=== PATIENT | female | born 1950 | race Caucasian/White ===

== ENCOUNTER 2017-10-12 09:38 | Emergency (ER) | payer MEDICARE ==
[~2017-10-12] VITALS: Ht 167.6 cm; Wt 83.0 kg
--- NOTE | 2017-10-13 19:44 | EKG ---
[facility] [address] [facility] [place] [address] Signed Sinus tachycardia Moderate voltage criteria for LVH, may be normal variant Borderline ECG No previous ECGs available Confirmed by ALLISON RENDON MD ([id number]) on 10/13/2017 7:44:15 PM Electronically Signed By: ALLISON RENDON MD 10/13/17 1944 PATIENT NAME: NETTE MUSTAFAHALLIE DELACRUZ Electrocardiogram DATE OF : 48 PHYSICIAN: ALLISON RENDON MD REPORT #: [id number] REPORT IS CONFIDENTIAL AND NOT TO BE RELEASED WITHOUT AUTHORIZATION
== END 2017-10-12 11:55 | disposition home or self-care (01) ==
LOC: ED 09:38
DX: R00.1 Bradycardia, unspecified (principal); I10 Essential (primary) hypertension; F41.9 Anxiety disorder, unspecified; Z88.5 Allergy status to narcotic agent; Z88.8 Allergy status to other drugs, medicaments and biological substances
CPT/HCPCS: 71045; 80053; 84484; 85025; 85379; 93005; 93010; 99285

== ENCOUNTER 2017-10-15 21:44 | Emergency (ER) | payer OTHER ==
--- NOTE | 2017-10-16 08:09 | EKG ---
[facility] [address] [facility] [place], [place] [address] Signed Sinus tachycardia Left ventricular hypertrophy with repolarization abnormality Cannot rule out Septal infarct , age undetermined Abnormal ECG Confirmed by MOJGAN WISEMAN MD ([id number]) on 10/16/2017 8:09:00 AM Electronically Signed By: MOJGAN WISEMAN MD 10/16/17808 PATIENT NAME: MARJORIE MUSTAFA [facility] Electrocardiogram DATE OF : 48 PHYSICIAN: MOJGAN WISEMAN MD REPORT #: [id number] REPORT IS CONFIDENTIAL AND NOT TO BE RELEASED WITHOUT AUTHORIZATION
== END 2017-10-16 00:52 | disposition home or self-care (01) ==
LOC: ED
DX: R00.0 Tachycardia, unspecified (principal); F41.9 Anxiety disorder, unspecified; I10 Essential (primary) hypertension; Z88.8 Allergy status to other drugs, medicaments and biological substances; Z91.038 Other insect allergy status; Z91.030 Bee allergy status; Z88.6 Allergy status to analgesic agent
CPT/HCPCS: 96374; 99285; J2060

== ENCOUNTER 2017-10-17 23:09 | Emergency (ER) | payer MEDICARE ==
[~2017-10-17] VITALS: Ht 152.4 cm; Wt 82.0 kg
--- OUTSIDE RECORDS SUMMARY | ~2017-10-17 | XMS | Clinical Summary ---
Demographics + + + | Address | [address] | | | [place] [address] | + + + | Home Phone | | + + + | Preferred Language | Unknown | + + + | Marital Status | | + + + | Episcopalian Affiliation | 1075 | + + + | Race | Unknown | + + + | Ethnic Group | Unknown | + + + Author + + + | Author | [facility] | | | and [place] | + + + | Organization | [facility] | | | and [place] | + + + | Address | Unknown | + + + | Phone | Unavailable | + + + Support + + + + + | Name | Relationship | Address | Phone | + + + + + | None To List,Per | ECON | 10.10.13 | Unavailable | | Patient | | NA, | | + + + + + | Hugo Kessler | ECON | [address] | | | | | [place] | | | | | [address] | | + + + + + Care Team Providers + +------+ + | Care Xerox Machine Mechanic Name | Role | Phone | + +------+ + | No, Unknownpcp | PP | | + +------+ + Allergies + + + +--------+ + | Active Allergy | Reactions | Severity | Noted | Comments | | | | | Date | | + + + +--------+ + | Bee Venom | | | | | + + + +--------+ + | Codeine Sulfate | | | | | + + + +--------+ + | Darvon | | | | | + + + +--------+ + | Demerol | | | | | + + + +--------+ + | Ibuprofen | | | | | + + + +--------+ + | Latex | | | | | + + + +--------+ + | Moxifloxacin | | | | | + + + +--------+ + | Prednisone | | | | | + + + +--------+ + Current Medications + + +-------+---------+------+------+-------+ | Prescription | Sig. | Disp. | Refills | Star | End | Statu | | | | | | t | Date | s | | | | | | Date | | | + + +-------+---------+------+------+-------+ | multivitamin | 1 tablet daily | | | 11/03 | | Activ | | (THERAGRAN) per | | | | 4/20 | | e | | tablet | | | | 12 | | | + + +-------+---------+------+------+-------+ | Flaxseed, Linseed, | Take 1,000 mg by | | | 11/03 | | Activ | | (RA FLAX SEED OIL | mouth Daily. | | | 4/20 | | e | | 1000) 1000 MG CAPS | | | | 12 | | | + + +-------+---------+------+------+-------+ | albuterol 2.5 mg/3 | In nebulizer every 4 | | | 11/03 | | Activ | | mL nebulizer | hours as needed for | | | 06/22 | | e | | solution | shortness of breath | | | 12 | | | + + +-------+---------+------+------+-------+ | cholecalciferol | Take 1,000 Units by | | | | | Activ | | (VITAMIN D-3) 1,000 | mouth Daily. 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/2009 | + + + | CHRONIC RESPIRATORY FAILURE | | + + + | CT, CHEST, ABNORMAL | | + + + Family History + +------+ + + | Relation | Name | Status | Comments | + +------+ + + | Father | | | | + +------+ + + | Mother | | | | + +------+ + + Social History + +-------+ +--------+------+ | Tobacco Use | Types | Packs/Day | Years | Date | | | | | Used | | + +-------+ +--------+------+ | Never Smoker | | | | | + +-------+ +--------+------+ + + + | Sex Assigned at | Date Recorded | | | | + + + | Not on file | | + + + Last Filed Vital Signs + + + + | Vital Sign | Reading | Time Taken | + + + + | Blood Pressure | 168/100 | 12/12/20121543 PDT | + + + + | Pulse | 80 | 12/12/20121543 PDT | + + + + | Temperature | - | - | + + + + | Respiratory Rate | - | - | + + + + | Oxygen Saturation | - | - | + + + + | Inhaled Oxygen | - | - | | Concentration | | | + + + + | Weight | 81.6 kg (180 lb) | 12/12/20121543 PDT | + + + + | Height | 167.6 cm (5' 6") | 12/12/20121543 PDT | + + + + | Body Mass Index | 29.05 | 12/12/20121543 PDT | + + + + Plan of Treatment + + + + + | Health Maintenance | Due Date | Last Done | Comments | + + + + + | Vaccine: | | | | | Dtap/Tdap/Td (1 - | 9 | | | | Tdap) | | | | + + + + + | Vaccine: | | | | | Pneumococcal 65+ | 5 | | | | Low/Medium Risk (1 | | | | | of 2 - PCV13) | | | | + + + + + | Vaccine: Influenza | | | | | (#1) | 8 | | | + + + + + Results Not on filefrom Last 3 Months Insurance +---------+--------+ +--------+ +---------+ | Payer | Benefi | Subscriber | Type | Phone | Address | | | t Plan | ID | | | | | | / | | | | | | | Group | | | | | +---------+--------+ +--------+ +---------+ | QUENTIN | [place] | [id number] | Indemn | [phone] | | | E FOR | | ity | [phone] | | | | LIFE | | | | | +---------+--------+ +--------+ +---------+ + +--------+ +--------+ + + | Guarantor Name | Accoun | Relation to | Date | Phone | Billing Address | | | t Type | Patient | of | | | | | | | | | | + +--------+ +--------+ + + | JANA KESSLER | Person | Self [birth year] | Home: | [address] | | | [place] | | 1951 | [phone] | [place] | | | [place] | | | [phone] | [phone] | + +--------+ +--------+ + +
--- OUTSIDE RECORDS SUMMARY | ~2017-10-17 | XMS | Clinical Summary ---
Demographics + + + | Address | [address] | | | [place] [address] | + + + | Home Phone | | + + + | Preferred Language | Unknown | + + + | Marital Status | | + + + | Pentecostal Affiliation | 1075 | + + + | Race | Unknown | + + + | Ethnic Group | Unknown | + + + Author + + + | Author | [facility] | | | and [place] | + + + | Organization | [facility] | | | and [place] | [...] + | Hugo Kessler | ECON | [address] | | | | | [place] | | | | | [address] | | + + + + + Care Team Providers + +------+ + | Care Director Of Communications Name | Role | Phone | + [...] +--------+ +---------+ | QUENTIN | [place]AR | [id number] | Indemn | [phone] | | [...] | Self | [birth year] | Home: | [address] | | | [place] | | 1951 | [phone] | [place] | | | [place] | | | [phone] | [phone] | + +--------+ +--------+ + +
== END 2017-10-18 02:45 | disposition home or self-care (01) ==
LOC: ED 23:09
DX: I10 Essential (primary) hypertension (principal); F41.9 Anxiety disorder, unspecified; Z91.030 Bee allergy status; Z88.8 Allergy status to other drugs, medicaments and biological substances; Z88.5 Allergy status to narcotic agent
CPT/HCPCS: 96374; 99283; J2060

== ENCOUNTER 2020-06-07 13:50 | Emergency (ER) | payer MEDICARE ==
[~2020-06-07] VITALS: Ht 167.6 cm; Wt 62.6 kg
[2020-06-07] MEDS ORDERED: CLONIDINE HCL0.1 MG PO (19:50)
[2020-06-07] MEDS ORDERED: MECLIZINE HCL25 MG PO (19:50)
--- NOTE | 2020-06-08 11:51 | EKG ---
[facility] [address] [facility] [place] [address] Signed Normal sinus rhythm Voltage criteria for left ventricular hypertrophy Abnormal ECG When compared with ECG of 12-OCT-2017 09:45, Vent. rate has decreased BY [address] elevation now present in Lateral leads Confirmed by BRETT CESAR DO ([id number]) on 06/08/2020 11:50:51 AM Electronically Signed By: BRETT CESAR DO 06/08/20 1151 PATIENT NAME: MUSTAFAMARJORIE WITTIC Electrocardiogram DATE OF : 48 PHYSICIAN: BRETT CESAR DO REPORT #: [id number] REPORT IS CONFIDENTIAL AND NOT TO BE RELEASED WITHOUT AUTHORIZATION
== END 2020-06-07 20:00 | disposition home or self-care (01) ==
LOC: ED 13:50
DX: I16.0 Hypertensive urgency (principal); R42 Dizziness and giddiness; Z91.030 Bee allergy status; Z88.8 Allergy status to other drugs, medicaments and biological substances; Z88.5 Allergy status to narcotic agent
CPT/HCPCS: 70450; 70496; 70498; 80053; 83735; 84484; 85025; 93005; 93010; 96361; 99284-25; J7030; Q9967

== ENCOUNTER 2020-12-31 08:49 | Inpatient (IN) | payer OTHER ==
[~2020-12-31] VITALS: Ht 167.6 cm; Wt 54.5 kg
[~2020-12-31 08:49] MED LIST: CLONIDINE HCL0.1 MG PO; MECLIZINE HCL25 MG PO
--- NOTE | 2020-12-31 11:57 | EKG ---
[facility] [address] [facility] [place] [address] Signed Normal sinus rhythm Nonspecific ST abnormality Abnormal ECG When compared with ECG of 07-JUN-2020 14:05, Questionable change in QRS axis Non-specific change in ST segment in Inferior leads Nonspecific T wave abnormality no longer evident in Inferior leads Confirmed by BRETT CESAR DO ([id number]) on 12/31/2020 11:57:45 AM Electronically Signed By: BRETT CESAR DO 12/31/20 1157 PATIENT NAME: MARJORIE MUSTAFA Electrocardiogram DATE OF : 48 PHYSICIAN: BRETT CESAR DO REPORT #: [id number] REPORT IS CONFIDENTIAL AND NOT TO BE RELEASED WITHOUT AUTHORIZATION
--- NOTE | 2020-12-31 16:20 | NUR ---
REPORT RECEIVED FROM TOMASZ KIDD. AWAITING PTS ARRIVAL TO UNIT.
--- NOTE | 2020-12-31 16:45 | NUR ---
PT ALERT AND ORIENTED. NORMAL STRENGTH NOTED AND PT REPORTS SHE IS BREATHING "MUCH BETTER THAN BEFORE." PT DENIES NUMBNESS OR TINGLING IN EXTREMITIES. LUNG SOUNDS CLEAR THROUGHOUT, AUDIBLE BUT VERY DEMINISHED ON RIGHT SIDE. CHEST TUBE IN PLACE. DRESSING C/D/I. CREPITUS NOTED UNDER AXILLA AND TOWARD FRONT OF CHEST. PRESSURE SETTING SET TO 20 CM. CHEST TUBE HOOKED TO WALL SUCTION AT CONTINIOUS RATE 100MMHG AND PT BEGINS TO CRY OUT IN PAIN. SUCTION STOPPED AND PAIN RESOLVES. EVENS NOT EXTENDED SUCTION IS NO LONGER IN PLACE. UNIT PLACED ON THE FLOOR BELOW PS CHEST LEVEL. AIR BUBBLES NOTED IN ATER SEAL CHAMBER WHENEVER PT COUGHS/LAUGHS OR HAS FORCEFUL RESPIRATIONS. MD AWARE. WATER SEAL BALL FLUCUTATING WITH PT BREATHS. NO SKIN WOUNDS OR ABNORMALITIES NOTED AT THIS TIME. PT REPORTS HEART MURMUR, NO MURMUR NOTED BY THIS RN. PT TOLERATING PO FLUIDS WITH OUT NAUSEA. IV FLUIDS STARTED PER MD ORDER. PT DENIES ADDITIONAL REQUESTS OR COMPLAINTS. CALL LIGHT WITHIN REACH. BED RAILS UP.
[2020-12-31] MEDS ORDERED: VITAMIN D350 MCG PO (17:00)
[2020-12-31] MEDS ORDERED: ASTRAGALUS ROOT1 GM MISC (17:01)
[2020-12-31] MEDS ORDERED: GARLIC1 EAC1 PO (17:01)
--- NOTE | 2020-12-31 17:40 | NUR ---
THIS RN TO ROOM TO CHECK ON PT. PT RESTING IN BED WITH HEAD OF BED ELEVATED TO 51 DEGREES. PT CONTINUES TO REPORTS 5/10 PAIN BUT DECLINES ALL PAIN MEDICAITON. DINNER ORDER PLACED. CHEST TUBE WNL, UNIT PLACED ON THE FLOOR BELOW PS CHEST LEVEL. AIR BUBBLES NOTED IN ATER SEAL CHAMBER WHENEVER PT COUGHS/LAUGHS OR HAS FORCEFUL RESPIRATIONS. WATER SEAL BALL FLUCUTATING WITH PT BREATHS. PT DENIES ADDITIONAL REQUESTS OR COMPLAINTS. CALL LIGHT WITHIN REACH. BED RAILS UP.
--- NOTE | 2020-12-31 18:10 | NUR ---
PT CALL LIGHT ON. PT REQUESTS ASSISTANCE UP TO RESTROOM. 1 PERSON ASSIST UP TO RESTROOM FOR LINE AND CORD MANAGEMENT. PT VOIDS 200ML DARK YELLOW URINE. PT VERY SHORT OF BREATH WITH AMBULATION AND OXGYEN SATUARTIONS NOTED TO DROP TO 84% ON 2L O2 BY NC WITH ACTIVITY. PT RECOVERS AFTER 5 MINUTES OF REST. PT ASSISTED BACK INTO BED. RESPIRATIONS NOW EVEN AND UNALBORED RR=20. OXGYEN SATURATION 98% ON 2L O2 BY NC. RECCOMENDING TO PLANER OPERATOR / GRADER TO INCREAST PTS OXYGEN USE WITH ACTIVITY. CALL LIGHT WITHIN REACH. BED RAILS UP.
--- NOTE | 2020-12-31 18:16 | NUR ---
DR. MONTANO CALLED AND UPDATED REGARDING BUBBLING IN WATER SEAL CHAMBER AND PTS INCREASED PAIN WITH WALL SUCTION. DR. MONTANO STATES TO LEAVE WALL SUCTION DISCONNECTED AT THIS TIME AND THAT BUBBLING IS EXPECTED FOR THIS SITUATION. NO ADDITONAL NEW ORDERS.
--- NOTE | 2020-12-31 18:40 | NUR ---
PT CALL LIGHT ON. PT "WORRIED ABOUT IV FLUIDS." THERAPUTIC COMMUNICATION DONE. PT AGREES TO CONTINUE IV FLUIDS GIVEN DARK YELLOW URINE PREVIOUSLY NOTED WITH VOID. DINNER DELIVERED. PT DENIES ADDITIONAL REQUESTS OR COMPLAINTS. CALL LIGHT WITHIN REACH. BED RAILS UP. CHEST TUBE REMAINS WNL AND SET BELOW PTS CHEST LEVEL.
--- NOTE | 2020-12-31 18:55 | NUR ---
PT ADMITTED THIS SHIFT FOR SPONTINIOUS AIR PNEUMOTHORAX. PT UP WITH 1 PERSON ASSIST FOR LINE AND CORD MANAGEMENT. PT TOELRATING REGULAR DIET WITH GOOD APPITITE. CHEST TUBE PLACED BY DR. MONTANO. WALL SUCTION ATTEMPTED AND NOT TOLEARTED BY PT. CHEST TUBE REMAINS TO WATER SEAL. BUBBLING NOTED WITH COUGH/LAUGH AND DEEP BREATHS, MD AWARE. PT REMAINS HYPERTENSIVE, DECLINES TREATMENT, MD AWARE. PT DECLINING PAIN MEDICAITON WELL, AGREES TO IV FLUIDS. PT VOIDING QUANTITY SUFFICIENT. PT USES CALL LIGHT AND MAKES NEEDS KNOWN.
--- NOTE | 2020-12-31 19:30 | NUR ---
SHIFT REPORT RECEIVED FROM LISA TOLBERT. PT UP TO BR WITH MELVIN DE LA ROSA AT THIS TIME.
--- NOTE | 2020-12-31 19:35 | NUR ---
IN OT ASSIST PT UP TO THE TOILET, SBA TO TUBE MGNT, PT BACK TO BED, WANTS TO ASK THE RN ABOUT HER CHEST TUBE SITE, WILL HAVE RN STOP BY, NO FURTHER NEEDS
--- NOTE | 2020-12-31 20:23 | NUR ---
PT IS CONCERNED THAT CHEST TUBE IS LEAKING AT INSERTION SITE, WNL, EDUCATION PROVIDED. ASSESSMENT COMPLETED. GCS 15, A&O X4. LEFT LUNG CLEAR, RIGHT LUNG DIM. ABD SOFT, NONTENDER, BOWEL TONES ACTIVE. CMS INTACT. IV WNL, CDI, FLUSHED WELL, IV FLUIDS INFUSING PER ORDER. CHEST TUBE WNL, PT DECLINES WALL SUCTION FOR THIS EVENING, MAY TRY LATER. SPO2 98% ON 2L NC. NO OTHER NEEDS AT THIS TIME. CALL LIGHT IN REACH.
--- NOTE | 2020-12-31 20:45 | NUR ---
IN TO GET VITALS, I&Os DONE, CHATTED WITH PT JOSE, NO FURTHER NEEDS AT THIS TIME
--- NOTE | 2020-12-31 22:20 | NUR ---
PT CALLS TO USE BSC AND BACK TO BED. NO OTHER NEEDS. CALL LIGHT IN REACH.
--- NOTE | 2021-01-01 | NUR ---
PT RESTING IN BED. SPO2 98% ON 2 L NC. CALL LIGHT IN REACH.
--- NOTE | 2021-01-01 02:15 | NUR ---
in to get vitals, bsc emptied, ice water filled, no further needs
--- NOTE | 2021-01-01 02:34 | NUR ---
ASSESSMENT, VS AND I&O COMPLETED. DRESSING CDI, TUBE AND COLLECTION DEVICE WNL. THERE IS SCANT RED OUTPUT IN COLLECTION CHAMBER. PT REPORTS 5/10 PAIN TO RIGHT CHEST WALL AT SITE, DECLINES PAIN MEDS. IV WNL, IV FLUIDS INFUSING PER ORDER. LUNG SOUNDS DIM IN RIGHT LOBE AND CLEAR IN LEFT. UPPER RIGHT LOBE SOUNDS MORE DIM THAN RIGHT LOWER LOBES. NO OTHER NEEDS AT THIS TIME. ICE WATER PROVIDED BY ESTRELLA CHARLES. CALL LIGHT IN REACH.
--- NOTE | 2021-01-01 04:00 | NUR ---
PT RESTING IN BED. SPO2 97% ON 2L NC. CALL LIGHT IN REACH.
--- NOTE | 2021-01-01 04:50 | NUR ---
PT IV PUMP ALARMING, NEW BAG IV FLUID PROVIDED. IV WNL. CHEST TUBE WNL. SPO2 96% ON 2L NC. CALL LIGHT IN REACH.
--- NOTE | 2021-01-01 05:50 | NUR ---
IN TO GET VITALS, PT UP TO THE BSC, EMPTIED, NO FURTHER NEEDS AT THIS TIME
--- NOTE | 2021-01-01 06:00 | NUR ---
PT HAS 5/10 RIGHT CHEST WALL PAIN, DECLINES SCHEDULED TYLENOL. SMALL AMOUNT OF RED OUTPUT IN COLLECTION CHAMBER NOTED. PT DENIES SOB AT THIS TIME. CHEST TUBE WNL, DRESSING CDI. TELE BATTERY CHANGED, SPO2 97% ON 2L NC. NO OTHER NEEDS. CALL LIGHT IN REACH.
--- NOTE | 2021-01-01 06:44 | NUR ---
PT SLEPT WELL THIS SHIFT. TOLERATED CHEST TUBE WELL. A SMALL AMOUNT OF RED OUTPUT IS IN THE COLLECTION CHAMBER. NO LEAKS NOTED. DRESSING CDI. PT HAS DECLINED SCHEDULED PAIN MEDS. PAIN HAS BEEN 5-8/10 IN RIGHT CHEST WALL. IV WNL, FLUIDS INFUSING PER ORDER. UOS, VSS. PT HAS HAD NO SOB THIS SHIFT. SPO2 HAS BEEN IN THE UPPER 90s ALL SHIFT.
--- NOTE | 2021-01-01 07:05 | NUR ---
REPORT RECEIVED FROM TOMASZ LAZAR. PT RESTING IN BED WITH EYES CLOSED. HEAD OF BED ELEVATED TO 40 DEGREES. OXYGEN SATURATION 98% ON 2L O2 BY NC. CHEST TUBE BELOW CHEST LEVEL AND WNL AT THIS TIME. FLUCUATION OF BALL NOTED IN CHAMBER, NO BUBBLING IN WATER SEAL CHAMBER AT THIS TIME. BED RAILS UP. CALL LIGHT WITHIN REACH. PT ALLOWED TO REST.
--- NOTE | 2021-01-01 08:10 | NUR ---
PT AWAKE IN ROOM, SITTING UP ON EDGE OF BED. PT AGREED TO SIT IN THE CHAIR AND IS INDEPENDENT WITH THE TRANSFER. COMMODE CLEANED AND REPLACED WITHIN REACH OF THE PT. CALL LIGHT WITHIN REACH, BREAKFAST GIVEN, LEENA AGUILLON UDPATED. NO FURTHER NEEDS AT THIS TIME.
--- NOTE | 2021-01-01 08:40 | NUR ---
MORNING ASSESSMENT AND MEDICATION DUE. PT UP TO CHAIR INDEPENDANTLY. PT REPORTS SHE IS "KEEPING A CLOSE EYE ON IT" REFERING TO THE UPRIGHT NATURE OF THE CHEST TUBE. PT REPORTS 5/10 PAIN IN HER RIGHT CHEST WALL, PT DECLINES PAIN MEDICATION STATING "i DON'T LIKE THE CHEMICAL COMPOUNDS." IV ASSESSED, WNL, NO S/S OF PHLEBITIS NOTED. LUNG SOUNDS CLEAR ON LEFT SIDE AND NOTED AND CLEAR ON RIGHT SIDE BUT VERY DEMINISHED. PT REMAINS ON HER CHRONIC 2L O2 BY [place] WITH OXGYEN SATURATIONS ABOVE 94%. PT REPORTS SHE HAS BEEN COUGHING UP OCCATIONAL YELLOW PHLEM STATING "THAT'S THE FIRST TIME IN A LONG TIME. BEFORE IT WAS REALLY SWEET LIKE A LIQUID STUFF I WOULD COUGH." CHEST TUBE REMAINS IN A POISITON BELOW PT CHEST. EVENS NOT EXTENDED TO THE DELTA CHRISSY THERE ISNO WALL SUCTION IN PLACE. CHAMBER UCTION SET TO -20CM. NO BUBBLING NOTED IN WATER SEAL CHAMBER, PT REPOERTS BUBBLING HAS BEEN DECREASING THROUGHOUT THE NIGHT. EDUATION DONE WITH PT REGARDING EXPECTED RESULTS OF CHEST TUBE THE PNEUMOTHROAX RESOLVES. BALL FULCUATING IN CHAMBER FROM 5 TO 15CM. WATER SEAL CHAMBER FILLED THE 2 CM LINE. PT REPORTS "IT DOESN'S HURT TO COUGH ANY MORE EITHER." 10ML SERIOUSANGUINOUS FLUID NOTED IN COLLECTION CHAMBER, RECORDED. GAUZE DRESSING TO CHEST TUBE INCERTION SITE NOTED TO HAVE SCANT AMOUNT OF SEROUSANGUINOUS DRAINAGE, WNL. DRESSING INTACT WITH NO LOOSE EDGES. PT REMAINS UP TO CHAIR,WATCHING TV AND EATING BREAKFAST. NO ADDITIONAL REQUESTS OR COMPLAINTS. CALL LIGHT WITHIN REACH.
--- NOTE | 2021-01-01 09:51 | NUR ---
PT CALL LIGHT ON. PT WOULD LIKE ROOM REARRANGED. PT ASSISTED WITH MOVING APPLIANCES AND FURNATURE AROUND IN ROOM. PT BACK TO BED WITH STAND BY ASSIST. PT NOTED TO DROP TO 88% ON 2L O2 BY NC WITH ACTIVITY OF BEING UP IN ROOM. RECOVERS TO GREATER THAN 92% AFTER 2 MINUTES OF REST. PT CONTINUES TO REPORT SHE IS COUGHING UP "YELLOW STUFF." CHEST TUBE REMAINS WNL, NO BUBBLINGNOTED IN WATER SEAL CHAMBER. BALL FUCTUAING WITH BREATHS BETWEEN 3CM AND 15CM. ICE WATER REFILLED. NO ADDITIONAL REQUESTS OR COMPLAINTS. CALL LIGHT WITHIN REACH. BED RAILS UP.
--- NOTE | 2021-01-01 10:16 | NUR ---
THIS RN TO ROOM TO CHECK ON PT WITH MANUEL TOLBERT. PT RESTING IN BED WITH HEAD OF BED ELEVATED TO 50 DEGREES. PT CONFIRMS PAIN WITH A NOD OF THE HEAD. OCCATIONAL SOUNDS BUT PT CONTINUES TO BE LARGLY UNRESPONSIVE, DOES WITHDRAWL FROM PAIN. FLACC SCORE OF 2 NOTED. PT TENDER TO ABDOMINAL PALPITATION. FAMILY REQUESTS PT HAVE PAIN MEDICATION. MEDICATION ADMINISTERED BY TOMASZ JACKSON. PTS FAMILY REQUESTS EYE DROPS FOR PT. DR. WISEMAN CONSULTED, ORDER GIVEN AND PLACED WITH REPEAT BACK. AWATING EYE DROPS TO ARRIVE FROM PHARAM[facility]. NEW IV FLUID BAG HUNG. PT REPOSITIONED TO BACK WITH HOME PILLOW UNDER COCCYX PLACED PER FAMILY REQUEST. ALLEVYN TO COCCYX CHANGED. HEAD OF BED REMAINS ELEVATED. CALL LIGHT WITHIN REACH. BED RAILS UP. FAMILY AT BEDSIDE.
--- NOTE | 2021-01-01 10:50 | NUR ---
DR. MONTANO TO BEDSIDE FOR ROUNDS. PT UPDATED ON PLAN OF CARE. DR. MONTANO PLACED PTS CHEST TUBE TO CONTINIOUS SUCTION AT LOW POWER OF 65-80MMHG. PT TOLERATING SUCTION WELL. PT VERBALIZES UNDERSTANDING OF PLAN OF CARE AND STATES HER QUESTIONS HAVE BEEN ANSWERED. PT CONTINUES TO REPORT 5/10 PAIN AND DECLINES PAIN MEDICATION. PT TALKING ON PHONE WITH FRIEND. NO ADDITIONAL REQUESTS OR COMPLAINTS. CALL LIGHT WITHIN REACH. BED RAILS UP.
--- NOTE | 2021-01-01 11:43 | NUR ---
NOON ASSESSMENT DUE. PT SITTING UP IN BED. PT REPORTS PAIN "IS MUCH BETTER SINCE DR MONTANO PUT THE SUCTION ON." PT RATES PAIN NOW AT 2/10 AND REPORTS SHE IS ABLE TO TAKE DEEP BREATHS STATING "BEFORE I COULD DO SHALLOW BREATHS BUT NOW ITS LIKE I CAN GET MORE AIR IN." PT REQUESTS IV BE SALINE LOCKED. NO ORDER NOTED, DR. MONTANO'S PROGRESS NOTE REVIEWED AND IT IS NOTED THAT HE MENTIONS LOCKING THE IV AND DISCONTINUING FLUIDS. ORDERS ENTERED. IV FLUSHED AND SALINE LOCKED PER PROTOCOL. ALCOHOL CAP APPLIED. LUNG SOUNDS CLEAR ON LEFT SIDE AND NOTED AND CLEAR ON RIGHT SIDE. MORE AIR FLOW HEARD NOW ON RIGHT SIDE COMPAIRED TO THIS MORNINGS ASSESSMENT. PT REMAINS ON HER CHRONIC 2L O2 BY CT WITH OXGYEN SATURATIONS ABOVE 94%. OCCATIONAL COUGH CONTINUES. CHEST TUBE REMAINS IN A POISITON BELOW PT CHEST. EVENS EXTENDED TO THE DELTA CHRISSY WITH LOW CONTINIOUS SUCTION AT 62MMHG IN PLACE. CHAMBER SUCTION SET TO -20CM. NO BUBBLING NOTED IN WATER SEAL CHAMBER, WITH HARSH COUGH OCCATIONAL SHORT PERIOD OF BUBBLING NOTED. EDUATION REINFORCED WITH PT REGARDING EXPECTED RESULTS OF CHEST TUBE THE PNEUMOTHROAX RESOLVES. BALL FULCUATING IN CHAMBER FROM 5 TO 15CM. WATER SEAL CHAMBER FILLED THE 2 CM LINE. ADDITIONAL 13ML SERIOUSANGUINOUS FLUID NOTED IN COLLECTION CHAMBER, RECORDED. GAUZE DRESSING TO CHEST TUBE INCERTION SITE NOTED TO HAVE SCANT AMOUNT OF SEROUSANGUINOUS DRAINAGE, WNL. DRESSING INTACT WITH NO LOOSE EDGES. NO CREPITUS NOTED. PT TALKING ON PHONE. LUNCH ORDER PLACED. NO ADDITIONAL REQUESTS OR COMPLAINTS. CALL LIGHT WITHIN REACH. BED RAILS UP.
--- NOTE | 2021-01-01 13:00 | NUR ---
THIS RN TO ROOM TO CHECK ON PT. PT SITTING UP IN BED WATCHING TV. PT CONTINUES TO REPORT 2/10 PAIN IN RIGHT CHEST, CONTINUES TO DENY PAIN MEDCATION. CHEST TUBE WNL, REMAINS ATTACKED TO WALL SUCTION AT 62MMHG. PT CONTINUES TO REPORT SHE IS BREATHING "MORE EASY" AND STATES SHE IS ABLE TO "TALK MORE NORMALLY." PT DENIES ADDITIONAL REQUESTS OR COMPLAINTS AT THIS TIME. CALL LIGHT WITHIN REACH. BED RAILS UP.
--- NOTE | 2021-01-01 14:01 | NUR ---
PT CALL LIGHT ON. PT REQUESTS ASSISTANCE UP TO RESTROOM. STAND BY ASSIST UP TO RESTROOM, FOR TUBE MANAGEMENT. OXGYEN INCREASED TO 4L WITH ACTIVITY AND PT IS ABLE TO MAINTAIN OXGYEN SATURATIONS ABOVE 90%. LINENS CHANGED. PT VOIDS CLEAR YELLOW URINE WITHOUT ISSUE. STAND BY ASSIST BACK TO BED. VITAL SIGNS STABLE, BLOOD PRESSURE REMAINS ELEVATED, MD AWARE. PT REPORTS 2/10 PAIN, CONTINUES TO DECLINE AVALOS MEDICATION, DECLINES EVEN SCHEDULED TYELNOL. CHEST TUBE WNL, NO BUBBLING NOTED IN WATER SEAL CHAMBER. SUCTION REAPPLIED AFTER RESTROOM VISIT, TO CHEST TUBE CANISTERAT 63MMHG. EVENS EXPANDED TO DELTA CHRISSY. PT SITTING ON EDGE OF BED. NO ADDITIONAL REQUESTS OR COMPLAINTS. CALL LIGHT WITHIN REACH.
--- NOTE | 2021-01-01 15:24 | NUR ---
AFTERNOON ASSESSMENT DUE. PT UP TO BEDSIDE COMODE, INDEPENDANTLY. PT STEADY ON FEET AND REPORTS SHORTNESS OF BREATH IS MUCH BETTER "LIKE I'M ALMOST BACK TO NORMAL. PT PERFORMS SELF JOSH CARE AND TRANSFERSE SELF BACK TO BED. PT VERY AWARE OF CHEST TUBE SAFETY. PT REPORTS 2/10 PAIN, CONTINUES TO DECLINE PAIN MEDICATION. LUNG SOUNDS CLEAR ON LEFT SIDE BUT FOR INSIPRATORY WHEEZE NOTED IN LLQ. LUNG SOUNDS HEARD AND CLEAR ON RIGHT SIDE, MORE DEMINISHED ON RIGHT SIDE COMPARED TO LEFT, UPPER RIGHT LOBE MORE DEMINISHED THAN LOWER RIGHT LOBE. PT REMAINS ON HER CHRONIC 2L O2 BY NC WITH OXGYEN SATURATIONS ABOVE 94%. OCCATIONAL COUGH CONTINUES WITH YELLOW SPUTUM NOTED. CHEST TUBE REMAINS IN A POISITON BELOW PT CHEST. EVENS EXTENDED TO THE DELTA CHRISSY WITH LOW CONTINIOUS SUCTION AT 65MMHG IN PLACE. CHAMBER SUCTION SET TO -20CM. NO BUBBLING NOTED IN WATER SEAL CHAMBER. NO FLUCUATION OF BALL NOTED IN CHAMBER WHILE SUCTION IS IN PLACE. WHEN SUCTION IS REMOVED BALL RETURN TO FLUCUATING WITH PT BREATHS. WATER SEAL CHAMBER FILLED THE 2 CM LINE. ADDITIONAL 8ML SERIOUSANGUINOUS FLUID NOTED IN COLLECTION CHAMBER, RECORDED. GAUZE DRESSING TO CHEST TUBE INCERTION SITE NOTED TO HAVE SCANT AMOUNT OF DRY/OLD SEROUSANGUINOUS DRAINAGE, WNL, NO NEW DRAINAGE NOTED. DRESSING INTACT WITH NO LOOSE EDGES. NO CREPITUS NOTED. OXGYEN SATURATIONS REMAIN ABOVE 94% ON 2L O2 BY NC PER BASELINE. PT REMAINS SITTING ON EDGE OF BED WATCHING TV AND WORKING ON PHONE. NO ADDITIONAL REQUESTS OR COMPLAINTS. ICE WATER REFILLED. CALL LIGHT WITHIN REACH. BED RAILS UP.
--- NOTE | 2021-01-01 16:59 | NUR ---
OXYGEN SATURATION NOTED TO BE 83% ON MONITOR. THIS RN TO ROOM. PT UP TO BEDSIDE COMODE. PT REPORTS HER OXGYEN SATURATIONS OFTEN DROP WITH ACTIVITY. NO DISTRESS NOTED. STAND BY ASSIST BACK TO SITTING ON EDGE OF BED. OXGYEN SATURATIONS CLIMB BACK TO 98% AFTER 2 MINUTES WITH NO ADJUSTMENT TO OXYGEN FLOW. PT REMAINS ON 2L O2 BY NC. PT ADVISED TO CALL NURSES STATION IN THE FUTURE WHEN SHE WANTS TO DO ACTIVITIES. LUNG SOUNDS UNCHANGED. INSPIRATORY WHEEZE CONTINUES IN LLQ. RT CALLED AND ADVISED OF INSPIRATOR WHEEZE. XENIA, RT STATES THIS IS RELATED TO PTS UNDERLYING LUNG DZ RATHER THAN CHEST TUBE ISSUES. RT STATES THEY WILL CONTINUE TO MONITOR. PT DENIES RESPIRATORY DISTRESS AND CONTINUES TO STATE HER BREATHING FEELS "MUCH BETTER." NO ADDITIONAL REQUESTS OR COMPLAINTS. CALL LIGHT WITHIN REACH. BED RAILS UP.
--- NOTE | 2021-01-01 17:41 | NUR ---
PT HERE FOR SPONTANIOUS PNEUMOTHORAX. PT UP IN ROOM INDEPENDANTLY, OXYGEN SATURATIONS NOTED TO DROP WHEN PT IS OUT OF BED, INCRESING OXGYEN TO 4L O2 BY NC WITH ACTIVITY MAINTAINS OXGYEN SATURATIONS ABOVE 90%. PT OTHERWISE ON 2L O2 BY NC PER BASELINE. CHEST TUBE REMAINS IN PLACE, WNL, SEE RN NOTES FOR DETAILS. LOW CONTINIOUS WALL SUCTION INITIATED THIS SHIFT BY DR. MONTANO, PT TOLERATING WELL. SMALL AMOUNT OF SEROUSANGUINOUS FLUID CONTINUES TO DRAIN INTO CHEST TUBE CHAMBERS. BUBBLING IN WATERSEAL CHAMBER NOW INFREQUENT, ONLY WITH HARSH COUGH. COUGH NOW PRODUCTIVE WITH YELLOW SPUTUM. DRESSING TO CHEST TUBE INSERTION SITE REMAINS WNL, MINIMAL OLD DRAINGE NOTED ON GAUZE. BLOOD PRESSURE CONTINUES TO BE ELVATED, MD AWARE. PT DECLINING ALL MEDICATIONS. PT VOIDING QUANTITY SUFFICIENT. PT USES CALL LIGHT AND MAKES NEEDS KNOWN.
--- NOTE | 2021-01-01 18:53 | NUR ---
THIS RN TO ROOM TO CHECK ON PT. PT RESTING ON LEFT SIDE WITH EYES CLOSED. RESPRIATIONS EVEN AND UNALBORED. OXYGEN SATURATION 98% ON 2L O2 BY NC. CHEST TUBE VISUALIZED AND WNL. PT ALLOWED TO REST. CALL LIGHT WITHIN REACH, BED RAILS UP.
--- NOTE | 2021-01-01 19:00 | NUR ---
PT CALL LIGHT ON, PT PANICING STATING "THERE IS A HISSING NOSE IN THE ROOM AND I KNOW IT'S BECAUSE SOMETHING IS WRONG!" THIS RN TO ROOM. OXGYEN IN PLACE, NO CHEST TUBE WNL. "HISSING NOISE" TURNS OUT TO BE THE SUTION ON THE WALL. EDUCATION DONE WITH PT REGARDING THIS A NORMAL SOUND OF SUCTION. PT VERBALIZES UNDERSTANDING. PT SITTING ON EDGE OF BED. OXGYEN SATURATIONS 98% ON 2L O2 BY NC. CALL LIGHT WIHTIN REACH. BED RAILS UP.
--- NOTE | 2021-01-01 21:12 | NUR ---
Pt in bed, O2 @L NC, chronic, lungs R CT in place, no drainagein tube noted. crackles R lungs and squeak like sound Lower Left lung, adenike sob with exertion. cpox/tele#[address]up to BSC, voided QS and had large soft bm. bp 183/90, temp 99.3, covers removed, denies h/a or flashing lights. tolerating fluids well, no emesis. uses call light, coop with assessment and vitals
--- NOTE | 2021-01-02 00:50 | NUR ---
O2 inplace, turns and repositions self in bed, uses BSC, laying on L side, R chest tube patent. tolerating fluids well, uses call light
--- NOTE | 2021-01-02 04:14 | NUR ---
pt on O2, chronic. lungs with crackles and dim R side, CT 10fr in place, dressing intact. to suction at times. draining scant amount of ss drainage. dressing with old drainage at insertion site. Left lung with exp lod wheezing like squeek sound auscultated x2. no sob with exertion, no cough at this time. Up to bsc, voiding QS, had bm. tolerated well. tolerating liquids well, no emesis. declined schedule meds. bp 183/90 and temp 99.3 earlier on shift. declined cooling measeres. cont to reinforce poc compliance.
--- NOTE | 2021-01-02 06:33 | NUR ---
PT TEMP 99.3, DECLINES COOLING MEASURES AND DECLINES 0600 TYLENOL, R CHEST TUBE TO WALL SUCTION. NO DRAINAGE NOTES
--- NOTE | 2021-01-02 07:10 | NUR ---
REPORT RECEIVED FROM TOMASZ VAZQUEZ. PT RESTING ON LEFT SIDE, AWAKEN AND ALERT. PT REPORTS "LESS THAN 2" PAIN "ONLY WHEN I COUGH." PT CONTINUES TO DECLINE PAIN MEDICATION. CHEST TUBE WNL AND ATTACHED TO CONTINIOUS WALL SUCTION AT 62 MMHG AT THIS TIME. PT ANTICIPATING BREAKFAST AND CHEST X-RAY. NO ADDITONAL REQUESTS OR COMPLAINTS. CALL LIGHT WITHIN REACH. BED RAILS UP.
--- NOTE | 2021-01-02 08:30 | NUR ---
MORNING ASSESSMENT DUE. THIS RN TO ROOM. PT SITTING ON EDGE OF BED EATING BREAKFAST. PT REPORTS THE "LUMP IN MY THROAT" HAS RETURNED. PT ALSO REPORTS SHE FEELS "LIKE I HAVE TO BURP AND JUST CAN'T." PT REPORTS A FEELING OF 5/10 DISCOMFORT IN EPIGASTRIC AREA "LIKE PRESSURE." PT REPORTS THIS IS THE SAME FEELING SHE HAD BEFORE SHE CAME INTO THE ER. HOWEVER, PT ALSO STATES HER BREATHING STILL FEELS NORMAL. PT REPORTS SHE CAN TAKE DEEP BREATHS AND DENIES FEELINGS OF SHORTNESS OF BREATH.OXGYEN SATURATION 98% ON 2L O2 BY NC. LUNG SOUNDS CLEAR THROUGHOUT, DEMINISHED ON RIGHT SIDE AND VERY FAINT IN UPPER RIGHT LOBE. NO INSPIRATORY WHEEZE NOTED ON LEFT SIDE. CHEST TUBE REMAINS IN A POISITON BELOW PT CHEST. EVENS EXTENDED TO THE DELTA CHRISSY WITH LOW CONTINIOUS SUCTION AT 65MMHG IN PLACE. CHAMBER SUCTION SET TO -20CM. NO BUBBLING NOTED IN WATER SEAL CHAMBER. NO FLUCUATION OF BALL NOTED IN CHAMBER WHILE SUCTION IS IN PLACE OR WHEN SUCTION IS REMOVED, EVEN WHEN PT COUGHS OR DEEP BREATHS THE BALL REMAINS AT THE 15CM CHRISSY IN WATER SEAL MOISE. WATER SEAL CHAMBER FILLED THE 2 CM LINE. NO ADDITIONAL FLUID NOTED IN THE COLLECTION CHAMBER SINCE YESTERDAY. GAUZE DRESSING TO CHEST TUBE INCERTION SITE NOTED TO HAVE SCANT AMOUNT OF DRY/OLD SEROUSANGUINOUS DRAINAGE, WNL, NO NEW DRAINAGE NOTED. DRESSING INTACT WITH NO LOOSE EDGES. NO CREPITUS NOTED. NO ADDITIONAL REQEUSTS OR COMPLAINTS. PT DENIES NAUSEA. CALL LIGHT WITHIN REACH. BED RAILS UP. ICE WATER REFILLED.
--- NOTE | 2021-01-02 08:30 | NUR ---
DR. MONTANO CALLED, AND CAME TO FLOOR. DR. MONTANO UPDATED ON PT ASSESSMENT AND CONCERNS. X-RAY REVIEWED. STAT CHEST TUBE PLACEMENT ORDERED. CHEST TUBE SET UP COMPLETED BY THIS RN. VERBAL ORDERS FOR 100MCG FENTANYL, 4MG VERSED, AND LIDOCANE WITH EPI FOR CHEST TUBE PLACEMENT. PHARMACY CALLED, ORDERS ENTERED BY RASHEED ARITA. PRCEEDURE REVIEWED WITH PT BY DR. MONTANO. CONSENT SIGNED. PT VERBALIZES UNDERSTANDING OF PROCEEDURE. PT REFUSES FENTANYL BUT AGREES TO VERSED AND LIDOCANE. LR AT TKO STARTED PER MD VERBAL ORDER. LR STARTED AT TKO RATE ON STRAIGHT TUBING. 2MG VERSED GIVEN BY THIS RN, MD STATES TO HOLD ADDITIONAL 2MG AND USE ONLY IF NEEDED. 22 [place] CHEST TUBE PLACED BY DR. MONTANO. LIDOCANE WITH EPI USED, FENTANYL HELD PER PT REQUEST. BUBBLING NOTED IN CHEST TUBE WATERSEAL CANISTER WITH PLACEMENT. BALL FLUCTUATING. CHEST TUE PLACED TO 62MMHG SUCTION PER MD ORDER. PT TOLERATED PROCEEDURE WELL. VITAL SIGNS STABLE.
--- NOTE | 2021-01-02 09:39 | NUR ---
CHEST TUBE PLACEMENT COMPLETE. PT RESTING IN BED, ALERT AND OREITNED OXGYEN SATURATION REMAINS ABOVE 96% ON 2L O2 BY NC. CHEST X-RAY ORDER GIVEN, ENTERED AND COMLETED. DR. PEREZ TO BEDSIDE TO REVIEW X-RAY. CHEST TUBE REMAINS IN A POISITON BELOW PT CHEST. EVENS EXTENDED TO THE DELTA CHRISSY WITH LOW CONTINIOUS SUCTION AT 63MMHG IN PLACE. CHAMBER SUCTION SET TO -20CM. NO BUBBLING NOTED IN WATER SEAL CHAMBER AT THIS TIME. NO FLUCUATION OF BALL NOTED IN CHAMBER WHILE SUCTION IS IN PLACE OR WHEN SUCTION IS REMOVED, MD AWARE, NO NEW ORDERS. CHAMBER FILLED THE 2 CM LINE. NO DRAINGE NOTED IN COLLECTION CHAMBER. GAUZE AND PINK TAPE DRESSING OT INSCERTION SITE C/D/I WITH NO DRAINGE NOTED. DRESSING INTACT WITH NO LOOSE EDGES. CREPITIUS NOTED IN FRONT RIGHT SIDED WALL OF CHEST AND THROUGOUT BACK OF CHEST WALL. NO CREPITIUS NOTED IN AXILLARY AREA. THIS RN AT BEDISDE FOR 30MINUTES AFTER CHEST TUBE PLACMENT FOR OBSERVATION. PT CONTINUES RESTING IN BED WITH HEAD OF BED ELEVATED TO 40 DEGREES. PT DENIES REQUESTS OR COMPLAINTS. PT CONTINUES TO REPORT "FULLNESS" IN THE EPIGASTRIC AREA. PT DENIES PAIN. NO ADDITIONAL REQUESTS OR COMPLAINTS, CALL LIGHT WITHIN REACH. BED RAILS UP.
--- NOTE | 2021-01-02 10:35 | NUR ---
THIS RN TO ROOM TO CHECK ON PT. PT RESTING WITH EYES CLOSED, RESPIRATIONS EVEN AND UNLABORED. OXGYEN SATURATION 98% ON 2L O2 BY NC. BALL IN FLUID CHAMBER OF CHEST TUBE IS NOT FLUCUATING. CHEST TUBE OTHERWISE WNL. DR. MONTANO UPDATED, NO NEW ORDERS AT THIS TIME. CHEST X-RAY ORDER FOR THIS AFTERNOON. PT ALLOWED TO REST, CALL LIGHT WIHTIN REACH. BED RAILS UP.
--- NOTE | 2021-01-02 11:13 | NUR ---
PT CALL LIGHT ON. PT REPORTS "SOMETHING IS WRONG WITH MY TUBE." CHEST TUBE INSPECTED. NO CHANGES FROM PREVIOUS ASSESSMENT. OXYGEN SATURATIONS 99% ON 2L O2 BY NC. LUNG SOUNDS NOTED IN ALL QUADRANTS, CONTINUES TO BE DEMINISHED ON RIGHT SIDE. PT UP TO BEDSIDE COMODE WITH STAND BY ASSIST. PT REPORTS 9/10 PAIN WITH ACTIVITY, PT CONTINUES TO DECLINE PAIN MEDICATIONS OR INTERVENTIONS. EDUCATION DONE WITH PT. PT CONTINUES TO DECLINE MEDICATIONS. LINENS CHANGED. STAND BY ASSIST BACK TO BED. PT ABLE TO TELL STORIES WITHOUT STOPPING TO BREATH. NO ADDITIONAL REQUESTS OR COMPLAINTS AT THIS TIME. CALL LIGHT WITHIN REACH.
--- NOTE | 2021-01-02 11:25 | HP ---
[facility] [address], [place] [address] Signed ADMISSION DATE: 12/31/2020 REASON FOR ADMISSION: Right-sided pneumothorax, placement of chest tube. HISTORY OF PRESENT ILLNESS: This 70-year-old white woman presented to the emergency room, was evaluated by Dr. Ely with vague complaints of shortness of breath and epigastric pain and pressure for the past three days. She had lifted a clinical lab specialist that went over a allen near her house a few days ago, which she attributed the pain to. She has had some nausea and some vomiting and has some sensation of a "lump in the throat" particularly when swallowing. Evaluation in the emergency room was undertaken by Dr. Ely, which on plain x-ray showed a rather sizable right-sided pneumothorax, probably 50% or more in aggregate size. The left side was normal. She had no tracheal shift or anything of that sort. PAST MEDICAL HISTORY: Notable for self described pulmonary fibrosis for which she is cared for through the [facility]. The patient is an [employer] . She does require oxygen on a routine basis 1.5 to 2 L nasal cannula. The patient describes herself as having a Microbiology degree, though she is quite dubious of the current COVID pandemic and refuses COVID testing it is noted. Surely she has not had a COVID vaccine either. REVIEW OF SYSTEMS: She denies any hematemesis or hemoptysis. She had no blood per rectum. PHYSICAL EXAMINATION: GENERAL: A relatively thin white woman accompanied by her daughter. NECK: Trachea is midline. She has no jugular venous distention. CHEST: Shows normal respiratory excursion, not excessively tachypneic. VITAL SIGNS: Pulse is regular. Blood pressure 177 systolic, pulse 98, O2 saturations on 3 L of oxygen is 96%. ABDOMEN: Nondistended. EXTREMITIES: Show no clubbing, cyanosis, or edema. Chest x-ray shows right-sided pneumothorax as previously described. LABORATORY STUDIES: Electronically Signed By: MARE MONTANO MD 01/02/21 1125 PATIENT NAME: MARJORIE MUSTAFA HISTORY AND PHYSICAL DATE OF : 48 REPORT #: [id number] PHYSICIAN: MARE MONTANO MD PCP: BRUCE PFEIFFER MD REPORT IS CONFIDENTIAL AND NOT TO BE RELEASED WITHOUT AUTHORIZATION [facility] [address], [place] [address] Signed Show a white count of 11.5, hematocrit 46.4, platelets 370,000. Chem profile normal. Liver enzymes are normal. BNP was 145, lipase 120 still normal in this lab. Creatinine 0.95. Chest x-ray as previously noted shows a right-sided pneumothorax. There is a fine reticular infiltrate on both right and left lungs. This may represent her underlying chronic pulmonary disease. ASSESSMENT: The patient has sizable right-sided pneumothorax with mild shortness of breath and symptoms having been ongoing for probably three days. Explained in detail the pathophysiology of the problem to her and recommendation of treatment to include a right-sided chest tube. I think a mini chest tube (10-Malagasy) would be adequate to allow for expansion of the lung as it is unlikely to be associated with much pleural fluid based on the images I have seen. If an ongoing air leak is noted, then she may require prolonged tube decompression. Indeed, she may require additional interventions if that is the case. The risk of bleeding, infection, direct injury to the lung and other unforeseen complications was reviewed with her and her daughter in detail. They understand and wished to proceed. MD TERESA Lilly/MISTYL /[id number] cc: Dr. Solis SCHOFIELD Copies: ~ Electronically Signed By: MARE MONTANO MD 01/02/21 1125 PATIENT NAME: MARJORIE MUSTAFA HISTORY AND PHYSICAL DATE OF : 48 REPORT #: [id number] PHYSICIAN: MARE MONTANO MD PCP: BRUCE PFEIFFER MD REPORT IS CONFIDENTIAL AND NOT TO BE RELEASED WITHOUT AUTHORIZATION
--- NOTE | 2021-01-02 11:25 | OR ---
[facility] [address], [place] [address] Signed DATE OF OPERATION: 12/31/2020 SURGEON: Mare Montano MD PREOPERATIVE DIAGNOSES: 1. Large right-sided pneumothorax. 2. Underlying presumed pulmonary fibrosis with chronic oxygen (home oxygen-dependent). POSTOPERATIVE DIAGNOSES: 1. Large right-sided pneumothorax. 2. Underlying presumed pulmonary fibrosis with chronic oxygen (home oxygen-dependent). 3. Expansion of right lung noted. PROCEDURE: Right-sided chest tube (10-Citizen Of [place]). ANESTHESIA: Lidocaine 1%. INDICATIONS: This 70-year-old white woman presented to the emergency room and was evaluated by Dr. Ely and found to have a large right-sided pneumothorax. She has underlying pulmonary disease self described as pulmonary fibrosis. Chest x-ray shows a sizable right-sided pneumothorax, and a chest tube has been recommended. Initial anticipation of a "mini chest tube" 10-[place]izen [place] in size, thought to be adequate for the purpose at hand. The patient and her daughter who accompanies her, understand the risks of bleeding, infection, lung injury, failure to cure the problem, and need for prolonged chest tube decompression depending on findings. All these features were reviewed with them, they understand and wished to proceed with right-sided chest tube. FINDINGS: the pleural space was easily entered and air bubbles were noted. Placement of the 10-Citizen [place] chest tube with p.o. introducer was accomplished allowing for complete expansion of the lung. She did have a persistent episodic air leak at conclusion. DESCRIPTION OF PROCEDURE: The patient was placed in an upright position with arm elevated and the right chest prepared with a Betadine solution after tapping the right breast laterally. Approximately, the sixth rib was identified in the anterior axillary line. A 1% lidocaine was injected directly onto the pleural space Electronically Signed By: MARE MONTANO MD 01/02/21 1125 PATIENT NAME: MARJORIE MUSTAFA OPERATIVE REPORT DATE OF : 48 REPORT #: [id number] PHYSICIAN: MARE MONTANO MD PCP: BRUCE PFEIFFER MD REPORT IS CONFIDENTIAL AND NOT TO BE RELEASED WITHOUT AUTHORIZATION [facility] [address], [place] [address] Signed directly over the top of it as well. Sterile technique was used of course including mask, glove, and gown. The pleural space was entered carefully and air bubbles were noted. The site was incised with an #11 blade. Intrastat introducer kit needle was passed through this incision site with a syringe on the local anesthetic again demonstrating air bubbles. A flexible wire was passed through the needle, the needle was removed. The site had been incised with an #11 blade to accommodate the dilator and peel-away sheath introducer. These were passed over the wire, and the wire and the dilator were removed. A previously inspected 10-Citizen [place] pediatric chest tube was passed through the chest wall through the peel-away introducer and secured the skin with 0-nylon suture. The chest tube was attached to a small Ciara tree and then to a previously set up Pleur-evac device showing a significant air leak as might be expected. The patient did experience minor discomfort with expansion of the lung clinically. The chest tube was secured to the Ciara tree with pink tape and a zip tie distally. Cassandra tape was applied as was an op-site after gauze dressing was applied. A postprocedure chest x-ray showed good expansion of the right lung. Approximately 15 minutes after the procedure, there was still an episodic air leak in the initial decompression of the pleural space. Plan for patient to be directly admitted for further monitoring. MD TERESA Lilly/MISTYL /[id number] Copies: ~ Electronically Signed By: MARE MONTANO MD 01/02/21 1125 PATIENT NAME: MARJORIE MUSTAFA OPERATIVE REPORT DATE OF : 48 REPORT #: [id number] PHYSICIAN: MARE MONTANO MD PCP: BRUCE PFEIFFER MD REPORT IS CONFIDENTIAL AND NOT TO BE RELEASED WITHOUT AUTHORIZATION
--- NOTE | 2021-01-02 11:56 | NUR ---
THIS RN TO ROOM TO CHECK ON PT. PT RESTING IN BED ON BACK WITH HEAD OF BED ELEVATED TO 45 DEGREES. PT CONTINUES TO REPORTS 9/10 PAIN IN RIGTH CHEST AND "FULLNESS" IN EPIGASTRIC AREA. PT DECLINES ALL MEDICAITONS. CHEST TUBE REMAINS WNL, NO CHANGES SINCE PREVIOUS ASSESSMENT. OXGYEN SATURATION 98-100% ON 2L O2 BY NC. PT DENIES ADDITIONAL REQEUSTS OR COMPLAINTS. CALL LIGHT WITHIN REACH. BED RAILS UP. ICE WATER REFILLED.
--- NOTE | 2021-01-02 13:11 | NUR ---
AFTERNOON ASSESSMENT AND MEDICATION DUE. THIS RN TO ROOM. PT SITTING UP IN BED. PT CONTINUES TO REPORT 9/10 PAIN IN CHEST WALL. PT CONTINUES TO DECLINE PAIN MEDICAITON. LUNG SOUNDS CLEAR TO ASCULTATION. RLL NOW AUDIBLE AND COMPARIABLE TO LLL IN INTENSITIY OF AIR FLOW. RIGHT UPPER LOBE CONTINUES TO BE DEMINISHED TO ASCULATATION. MINIMAL COUGH NOTED, PT REPORTS SHE CANNOT COUGH A LOT BECAUSE OF THE PAIN. BLOOD PRESSURE REMAINS ELEVATED, AWARE, PT CONTINUES TO STATES SHE DOES NOT WANT HER BLOOD PRESSURE TREATED. EDUCATION DONE WITH PT, PT VERBALIZES UNDERSTANDING BUT CONTINUES TO STATES SHE WANTS NO BLOOD PRESSURE TREATEMENT. CHEST TUBE REMAINS IN A POISITON BELOW PT CHEST. EVENS EXTENDED TO THE DELTA CHRISSY WITH LOW CONTINIOUS SUCTION AT 63MMHG IN PLACE. CHAMBER SUCTION SET TO -20CM. BUBBLING IN WATER SEAL CHAMBER NOTED WITH DEEP BREATHS OR COUGHING. BALL ALSO FLUCTUATES DURING THESE DEEP BREATHS, BUT IS OTHERWISE NONE FLUCUATING. CHAMBER FILLED THE 2 CM LINE. UNMEASUREABLE AMOUNT OF SEROUS ANGUINOUS DRAINGE NOTED IN COLLECTION CHAMBER. GAUZE AND PINK TAPE DRESSING TO INSCERTION SITE LOOSE IN CAUDAL END, ADDITIONAL PICE OF PINK TAPE APPLIED TO REINFORCE EDGES. SMALL AMOUNT OF CREPITIUS NOTED IN FRONT RIGHT SIDED WALL OF CHEST AND BACK OF CHEST WALL, MUCH IMPROVED SINCE THIS MORNING. NO CREPITIUS NOTED IN AXILLARY AREA. 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 PT REMAINS ON 2L O2 BY IL WITH OXGYEN SATUATIONS 98-100% AT THIS TIME. PT RESTING IN BED WITH HEAD OF ELEVATED TO 30 DEGREES. PT CONTINUES TO REPORT "FULLNESS" IN THE EPIGASTRIC AREA AND RIGHT UPPER ABDOMEN. PT UPDATED ON PLAN OF CARE VERBALIZES UNDERSTANDING, NO ADDITIONAL REQUESTS OR COMPLAINTS, CALL LIGHT WITHIN REACH. BED RAILS UP.
--- NOTE | 2021-01-02 14:39 | NUR ---
CHEST X-RAY COMPLETE. DR. MONTANO CALLED AND UPDATED, X-RAY RESULTS READ OUTLOUD. STATES TO ENCORUAGE POSITION CHANGES. ACKNOWLEDGE POSITION OF CHEST TUBE AND REPORTS CONDITION IS EXPECTED AT THIS TIME, STATES TO ENCOURAGE TYELNOL IF PT AGREES. NO ADDITIONAL NEW ORDERS AT THIS TIME.
--- NOTE | 2021-01-02 14:54 | NUR ---
THIS RN TO ROOM. PT UPDATED REGARDING DR. BAÑUELOS RECCOMENDATIONS. PT AGREES TO TAKE "ONLY 1/2" THE DOES OF TYELNOL. 500MG GIVEN. PT REPORTS SHE DOESN'T TAKE TYELNOL BECUASE "IT MAKES ME FEEL REALY SQUEEZY." PT UNABLE TO CLARFY WHAT "SQUEEZY" MEANS. PT CONTINUES TO REPORT 9/10 PAIN. PT ENCOAURGE TO SHIFT POSITIONS TOLERATED. PT HAS BEEN UP TO EDGE OF BED, COMODE, LYING ON LEFT SIDE, AND SEMIFOWLER. PT CURRENTLY SITTING UP IN BED, LEANING FORWARD. AIR NOTED IN WATER SEAL CHAMBER WITH REPOSITIONING. SUCTION REMAINS IN PLACE TO CHEST TUBE. PULSE OX CHANGED TO A NEW FINGER. OXYGEN SATURATIONS 98-100%. PT DENIES ADDIITONAL REQUESTS OR COMPLAINTS AT THIS TIME. CALL LIGHT WITHIN REACH. BED RAILS UP.
--- NOTE | 2021-01-02 15:24 | NUR ---
PT HERE FOR SPONTANOUS PNEUMONTHORAX. WORSENING CONDITION THIS MORNING WITH RETURN OF SYMPTOMS PRESENT IN ER. NEW FULL 22 PASHTO CHEST TUBE PLACED BY DR. MONTANO WITH GOOD RESULTS. PT REPOSITIONS SELF INDEPENDANTLY, UP TO CHAIR AND BEDSIDE COMODE WITH MINIMAL ASSIST. PT TOLERATING REGULAR DIET, REPORTS VERY MINIMAL APPITITE THIS SHIFT. BLOOD PRESSURES REAMIN ELEVATED, MD AWARE, PT DECLINES TREATMENT. CHEST TUBE WNL, SEE RN NOTES, OCCATIONAL BUBBLING NOTED IN WATER SEAL CHAMBER WITH DEEP BREATHING OR COUGH. CHEST TUBE TO LOW CONTINIOUS WALL SUCTION. OCCATIONAL BALL FLUCUATION WITH COUGH AND DEEP BREATHING, BALL OTHERWISE STILL. GAUZE AND PINK TAPE DRESSING TO CHEST TUBE INCERTION SITE, REINFORCED X1 THIS SHIFT. CREPTUS TO ANTERIOR AND POSTERIOR CHEST WALL IMPROVING THROUGHOUT SHIFT. LUNG SOUNDS NOW AUDIBLE ON RIGHT LOWER LOBE AND COMPARIABEL TO LEFT LOWER LOBE. RIGHT UPPER LOBE REMAINS DEMINISHED. PT REMAINS ON 2L O2 BY NC PER CHRONIC BASELINE WITH OXGYEN SATURATIONS 98-100%. PT REPORTS 9/10 PAIN, AGREES TO 1/2 DOES AFTERNOON TYLENOL, DECLINES ADDITIONAL MEDICATION. CHEST X-RAY X2, IMPROVING. PT VOIDING QUANTITY SUFFICIENT. PT USES CALL LIGHT AND MAKES NEEDS KNOWN.
--- NOTE | 2021-01-02 16:40 | NUR ---
THIS RN TO ROOM TO CHECK ON PT. PT APPEARS MORE ENERGETIC. PT REPORTS PAIN HAS IMPROVED NOW /10. PT ALSO STATES THE "LUMP IN MY THROAT" AND ABDOMINA DISCOMFORT HAS RESOLVED. PT HAS BEEN MAINTAING OXGYEN SATURATIONS 99-100% BY TELEMETRY MONITORING OVER THE PAST HOUR. PT STATES "I HAVEN'T BEEN 100% IN A LONG TIME." PT EXPRESSES HOPE THAT SHE MAY BE ABLE TO WEAN HER OXYGEN BACK TO 1.5L. THIS RN OFFERS TO WEAN OXGYEN, PT DECLINES AT THIS TIME STATING SHE WANTS OXGYEN LEFT AT 2L. PT CURRENTLY 99% ON 2L O2 BY NC. PT ALSO REPORTS SHE CAN NOW MOVE ARROUND WITH MUCH LESS DISCOMFORT. BUBBLING CONTINUES IN WATER SEAL CHAMBER INTERMITTANLY, ESPICIALLY WHEN PT IS LYING DOWN. PT REPOSTIONING SELF FREQUENTLY. SUCTION CONTINUES AT 62MMHG. ICE WATER REFILLED. COMODE EMPTIED. PT DENIES ADDITIONAL REQUESTS OR COMPLAINTS. CALL LIGHT WITHIN REACH. BED RAILS UP.
--- NOTE | 2021-01-02 18:24 | NUR ---
THIS RN TO ROOM TO CHECK ON PT. VITAL SIGNS STABLE, BLOOD PRESSURE REMAINS ELEVATED. PT CONTINUES TO DECLINE BLOOD PRESSURE TREATMENT, AWARE. PT CONTINUES TO REPORTS 5/10 PAIN IN RIGHT SIDED CHEST WALL. PT REPORTS PAIN IS CONSTANT AND DOESN'T CHANGE WITH INSIPIRATION/EXPIRATION OR POSITIOIN. PT REPORTS PAIN DOES INCREASE WITH ACTIVITY. CHEST TUBE WNL. 20ML SEROUSANGUINOUS DRAINAGE NOTED IN COLLECTION CHAMBER. CHEST TUBE ASSESSMENT OTHERWISE UNCHANGED. PT REMAINST 99-100% ON 2L O2 BY NC. PT NOW REQUESTS TO TRY WEANING OXYGEN TO 1.5L O2. OXGYEN WEANED TO 1.5L O2 BY NC. OXGEN SATURATIONS MAINTAING ABOVE 95%. CREPITUS CONTINUES IN ~5CM CIRCUMFRENTIAL AREA OF ANTERIOR R CHEST WALL AND ~4CM CIRCUMFRENTIAL AREA OF POSTERIOR R CHEST WALL. PT DENIES ADDITIONAL REQUESTS OR COMPLAINTS. CALL LIGHT WITHIN REACH. BED RAILS UP.
--- NOTE | 2021-01-02 19:00 | NUR ---
SHIFT RE[facility] AT BEDSIDE. pt AWAKE AND RESTING IN BED, CURRENTLY ON 1.5LNC, CPOX IN PLACE, SPO2 UPPER 90'S. pt SITTING UPRIGHT IN BED, NO DISTRESS NOTED, RESPIRATIONS EVEN AND UNLABORED. CHEST TUBE CANISTER SITTING UPRIGHT, NO KINKS NOTED IN TUBING. DRESSING TO RIGHT CHEST TUBE C/D/I, CHEST TUBE TO LOW CONT. SUCTION. NO FLOAT BALL FLUCUATION NOTED WITH RESPIRATIONS, MD AWARE AND OKAY WITH IT PER TOMASZ GONZALEZ. PER REPORT, SCANT/MINIMAL BUBBLING NOTED WITH POSITION CHANGES. pt DENIES NEEDS OR CONCERNS, CALL LIGHT IN REACH.
--- NOTE | 2021-01-02 21:00 | NUR ---
DR MONTANO ON PHONE, PER MD PROGRESS NOTE POC TO DO CHEST X-RAY IN AM. NO ORDER IN PLACE, CLARIFIED WITH MD. PER OKAY TO PUT ORDER FOR CHEST X-RAY FOR MORNING FOR FOLLOW-UP, ORDER READ BACK. RN ENT BAILEY TO PLACE ORDER.
--- NOTE | 2021-01-02 21:15 | NUR ---
ASSESSMENT COMPLETE. EVENING BP ELEVATED AND ABOVE PARAMETERS, RESULT OF 214/80. MANUAL BP TAKEN BY THIS RN, RESULT OF 215/90. HR AND REMAINING VSS, pt EDUCATED ON RISK OF STROKE AND OTHER RISKS OF ELEVATED BLOOD PRESSURE. pt STATES, "MY BLOOD PRESSURE FLUCUATES AND PART OF THAT IS THE PAIN. WHEN I'M HOME IT'S NORMAL".pt RATES PAIN 6-7, BUT REPORTS "TOLERABLE". I DON'T WANT CHEMICALS". pt CONTINUES TO REFUSE SCHEDULED PAIN AND NEED FOR BP MEDICATION EVEN AFTER EDUCATION. DR MONTANO NOW IN ROOM AND AWARE OF ELEVATED BP'S. MD PLACED ORDER FOR PRN NITRO PATCH, pt REFUSES MEDICATION WHEN TALKING WITH DR MONTANO. pt DENIES HEADACHE AND VISION CHANGES WHEN ASKED BY THIS RN, WILL CONTINUE TO MONITOR. DR MONTANO VISUALIZES CHEST TUBE APPEARANCE, NO NEW ORDERS, OKAY WITH CURRENT APPEARANCE. TUBE CURRENTLY TO LOW/MODERATE CONT. SUCTION, NO FLUCUATION IN FLOAT BALL WITH RESPIRATIONS. BELLOW REMAINS BEYOND TRIANGLE MARKER. NO BUBBLING AT THIS TIME. CANASTER REMAINS UPRIGHT AND NO KINKS NOTED. WILL CONTINUE TO MONITOR pt.
--- NOTE | 2021-01-03 00:29 | NUR ---
pt CALLED AND REPORTS A RETURN OF A LUMP IN HER THROAT AND CHEST PRESSURE. pt STATES, "THIS IS WHAT IT FELT LIKE EARLIER TODAY AND IT'S EITHER WHEN THE CHEST TUBE ISN'T WORKING OR IF AIR'S FILLING UP". LUNG SOUNDS DIMINISHED IN RIGHT UPPER LOBE, NO DRASTIC CHANGE FROM START OF SHIFT. RR 20, EVEN AND UNLABORED. SBP 210/85, MAP OF 115. HR 80. 99% ON 1.5LNC. CHEST TUBE REMAINS TO LOW/MODERATE CONT SUCTION, NO FLUCTUATION NOTED WITH PRESSURE FLOAT BALL W/ RESPIRATIONS. BELLOW REMAINS PAST MARKER INDICATING ADEQUATE SUCTION LEVEL, WATER REMAINS AT 2CM. NO BUBBLING NOTED, EVEN W/ pt COUGH. WHEN SUCTION IS TURNED OFF, FLOAT BALL RAISES TO THE 10 MARKER. SUCTION THEN RESUMED. DRESSING C/D/I. NO KINKS TO TUBING. pt CONTINUES TO REFUSE PRN TYLENOL AND BP MEDICATION. EDUCATION PROVIDED, pt CONITNUES TO REFUSE. DR MONTANO MADE AWARE OF ALL INFORMATION ABOVE. TELEPHONE ORDER READ BACK FOR SINGLE VIEW CHEST X-RAY STAT FOR NOW. PER MD, CALL IF RESULTS ARE WORSE COMPARED TO LAST X-RAY TAKEN. MOLECULAR TECHNOLOGIST BAILEY AND CROP OR LIVESTOCK TENANT FARMER SOLEDAD ALSO UPDATED.
--- NOTE | 2021-01-03 00:48 | NUR ---
RUI FROM IMAGING IN ROOM COLLECTING CHEST X-RAY. pt RESTING IN BED, FRESH WATER PROVIDED. NO ADDITIONAL NEEDS, CALL LIGHT IN REACH.
--- NOTE | 2021-01-03 01:28 | NUR ---
REVIEWED RESULTS OF CHEST X-RAY WITH ACTUARIAL ASSISTANT SOLEDAD. PER SOLEDAD, NO NEED TO CALL DR MONTANO AT THIS TIME, WILL CONTINUE TO MONITOR. pt UPDATED AND DISCUSSED POC WITH pt. pt STATES, "SO ARE WE JUST GONNA LET AIR LEAK INTO ME ALL NIGHT"? NO CHANGE TO CREPITUS NOTED BY THIS RN FROM TIME OF X-RAY WITH START OF SHIFT. pt REASSURED NO CHANGE TO CHEST TUBE SINCE START OF SHIFT AND LASTEST IMAGING REPORTS IMAGE "STABLE" WITH NO DRASTIC CHANGE TO SIZE OF PNEUMOTHORAX. WILL CONTINUE TO MONITOR. CALL LIGHT IN REACH. SOUND ENGINEER AUDIO CONTROL BAILEY UPDATED.
--- NOTE | 2021-01-03 03:40 | NUR ---
THIS RN TO ROUND ON pt, pt RESTING ON HER LEFT SIDE FACING WINDOW. RR EVEN AND UNLABORED, NO S/SX OF DISTRESS OR ANXIETY NOTED. pt REMAINS ON 1.5LNC, SPO2 97-98%. pt REMAINS ON LOW TO MODERATE CONT. SUCTION. WILL CONTINUE TO MONITOR, CALL LIGHT IN REACH.
--- NOTE | 2021-01-03 06:39 | NUR ---
198/64 BP, RN is in the room and has been notified. Call light is in reach.
--- NOTE | 2021-01-03 06:50 | NUR ---
ASSESSMENT COMPLETE, pt AWAKE AND RESTING IN BED. REPORTS TOLERABLE 4/10 PAIN, REFUSES TYLENOL. EDUCATION PROVIDED, pt CONTINUES TO REFUSE BOTH TYLENOL FOR PAIN AND PRN NITRO PASTE FOR BP-SBP ABOVE PARAMETERS. MD HERE AT START OF SHIFT AND ALREADY AWARE OF pt's REFUAL TO TREAT HIGH BP. CHEST TUBE DRESSING REMAINS C/D/I, SET TO CONTINUOUS MODERATE SUCTION. SCANT BUBBLING NOTED WITH COUGH, NO FLOAT BALL FLUCUATION NOTED. NO KINKS IN TUBING, CHEST TUBE CANISTER REMAINS UPRIGHT. SPO2 UPPER 90'S ON 2LNC, NO CHANGE TO LUNG SOUNDS. 68MLS SEROSANGUINEOUS OUTPUT TO CHEST TUBE COLLECTION CHAMBER FOR SHIFT, SHEET METAL JOURNEYMAN ANABELLE AWARE. pt REPORTS LUMP IN THROAT AND CHEST PRESSURE FROM EARLIER IN SHIFT REMAINS-UNCHANGED. MD ALREADY AWARE, SEE RN NOTE FROM EARLIER IN SHIFT. NO ADDITIONAL NEEDS, CALL LIGHT IN REACH. CREPITUS REMAINS NOTED TO RIGHT LATERAL AND RIGHT PECTORAL AREA.
--- NOTE | 2021-01-03 08:14 | NUR ---
PT RESTING EYES CLOSED AT TIME OF SHIFT EXCHNAGE. SITTING UP ON THE EDGE OF THE BED NOW WITH MORNING MEAL. DENIES NEEDS OF. XRAY COMP;ETE
--- NOTE | 2021-01-03 10:00 | NUR ---
It was my pleasure to visit with Jana today while doing my patient rounding. Tree states that she is happy with her care "so far" and that she feels comfortable in her room. She verbalizes that she knows how to use her call light, and that the staff are "attentive" and answer her call light in a timely manner. She states that the staff members are not doing her pain control that she is doing that herself, and that she will not take the pain medications that have been ordered and offered. She feels that her room has been kept clean, and when asked about quietness at night, she verbalizes that "it has been fine" and states that she has been able to sleep at night. When asked about her home living situation she states that she lives alone. At this time she denies any need for help when she goes home, adding, "I can take care of myself." At this time she does not feel that she will need help acquiring any self care needs, or caring for herself independantly when she is discharged. Jana is awake, alert and oriented to person, place and time. She answers questions appropriately, and denies needs at this time. Stating, "so far everything has been good."
--- NOTE | 2021-01-03 11:20 | NUR ---
PATIENT RETURNED FROM [facility] LET THIS NURSE KNOW THAT PATIENT REPORTED THAT SHE FELT HER CHEST TUBE "SLIPPED" DURING CT. IN ROOM, PATIENT SAID THAT WALL SUCTION WAS NOT WORKING CORRECTLY. WALL SUCTION WAS HOOKED BACK UP, PATIENT IS WEARING O2 AT 2L, SITTING AT BEDSIDE. VISUAL INSPECTION OF CHEST TUBE REVEALED THAT BOTTOM OF DRESSING WAS PULLED UP AND THIS WAS REINFORCED WITH PINK TAPE. CREPITIS NOTED AROUND THE OUTSIDE OF DRESSING, NO BUBBLES OR TIDAL MOVEMENT NOTED IN WATER SEAL CONTAINER WITH COUGH/NORMAL BREATHING. PRIMARY NURSE DOUGIE DONOHUE.
[2021-01-03] MEDS ORDERED: VITAMIN E400 UNI2 PO (11:42)
--- NOTE | 2021-01-03 14:24 | NUR ---
PT SITTING ON BED WATCHING TV. CALL LIGHT WITHIN REACH. NO FURTHER NEEDS AT THIS TIME.
--- NOTE | 2021-01-03 14:41 | NUR ---
pt c/o moisture at chest tube site. area reinforced, taped securely. no bubbling or fluctuation in atrium container. pt refuses tylenol, agrees she hurts at the insertion site however.
--- NOTE | 2021-01-03 15:01 | NUR ---
Spoke with Jana. She states she lives alone and is a retired [employer] . 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 Denies needs or assistance. Pt uses 1.5 L 02 through [employer] and has 2 portable concentrators plus tanks at home. Friend will design lead her a ride home. Declines to discuss if she has financial issues and tells me this is none of my business. Let her know I am not trying to find out her finances, just wanted to let her know about [employer] and assistance they offer if ever needed. Pt states she will never need their assistance. Pt denies any needs and plans on dc to home when chest tube is out.
--- NOTE | 2021-01-03 15:38 | NUR ---
PT CONTINUES SITTING ON THE EDGE OF THE BED AFTER DRESSING RE-INFORCED VISITS ACTIVELY APPROX 20 MINUTES. DENIES NEEDS AT THIS TIME.
--- NOTE | 2021-01-03 18:23 | NUR ---
DR MONTANO NOTIFIED OF LEAKING AT INSERTION SITE OF CHEST TUBE. HE CLEARS THE LINE AND REDRESSES THE AREA. WELL TOLERATED BY PT.
--- NOTE | 2021-01-03 18:38 | NUR ---
PATIENT SITTING ON EDGE OF BED WORKING ON PAPER NICKEL PLATER. VITALS AND I&O'S CHARTED. BLOOD PRESSURE HIGH, RN NOTIFIED. CALL LIGHT IN REACH. NO FURTHER NEEDS AT THIS TIME.
--- NOTE | 2021-01-03 19:32 | NUR ---
REPORT RECEIVED FROM DAY SHIFT RN. PT LYING IN BED ALERT AND ORIENTED. DENIES NEEDS AT THIS TIME. WHITE BOARD UPDATED. CALL LIGHT IN REACH.
--- NOTE | 2021-01-03 21:00 | NUR ---
EVENING ASSESSMENT COMPLETE. PT REFUSING SCHEDULED PAIN MEDS. REPORTS PAIN IS TOLERABLE AND THAT SHE "HAS A HIGH PAIN TOLERANCE". DENIES SOB. PT NOTED TO BE PERISITENTLY CLEARING HER THROAT WHICH SHE STATES IS NORMAL. SMALL AMOUNT OF YELLOW SPUTUM NOTED. CHEST TUBE DRESSING ON RIGHT SIDE CDI. CHAMBER CONNECTED TO LCWS. NO FLUCUATION NOTED, MD AWARE. CREPITUS ON RIGHT SIDE BACK/CHEST NOTED. SpO2 98-99% ON 2L/NC. BP ELEVATED, PT AWARE AND REFUSING PRN FOR HTN. EDUCATION PROVIDED. PT NOT RECEPTIVE. FRESH WATER AND JOSH CARE SUPPLIES PROVIDED. PT DENIES QUESTIONS OR CONCERNS. CALL LIGHT IN REACH.
--- NOTE | 2021-01-03 23:46 | NUR ---
PT RESTING IN BED WITH EYES CLOSED. RESPIRATIONS EVEN. NO APPARENT DISTRESS. SpO2 98-99% ON 2L/NC.
--- NOTE | 2021-01-04 00:10 | NUR ---
CALL LIGHT ANSWERED. PT REQUESTING ICE WATER. SIPS GIVEN AND THEN PT NPO. PT VERBALIZES UNDERSTANDING. REPORTS PAIN INCREASED WITH ACTIVITY BUT IS STILL TOLERABLE. DENIES SOB. CHEST TUBE SITE UNCHANGED. BSC EMPTIED. NO FURTHER NEEDS.
--- NOTE | 2021-01-04 02:23 | NUR ---
PT LYING ON LEFT SIDE. RESPIRATIONS EVEN. SpO2 98% WITH 2L/NC IN PLACE.
--- NOTE | 2021-01-04 05:10 | NUR ---
PT RESTING IN BED WITH EYES CLOSED. HOB ELEVATED. NO APPARENT DISTRESS. CALL LIGHT IN REACH.
--- NOTE | 2021-01-04 06:35 | NUR ---
PT AWAKENS EASILY. VS AND I&O OBTAINED. BLOOD PRESSURE WITHIN PARAMETERS THIS AM. PT DENIES PAIN AT REST, JUST SOME "DISCOMFORT" WITH MOVEMENT. DENIES SOB. CHEST TUBE TO RIGHT SIDE UNCHANGED. DRESSING CDI. APPROX 20 ML SEROSANG DRAINAGE SINCE LAST NOC. PT REMAINS NPO. VOID QS. REFUSED SCHEDULED PAIN MEDS. SpO2 97-99% ON 2L/NC. RESPIRATIONS EVEN. BSC COMMODE EMPTIED. PT DENIES FURTHER NEEDS. CALL LIGHT IN REACH.
--- NOTE | 2021-01-04 09:40 | NUR ---
PATIENT SITTING ON EDGE OF BED WATCHING TV. VITALS AND I&O'S CHARTED. AM CARE AND ORAL CARE SUPPLIES AT BEDSIDE. CALL LIGHT IN REACH. NO FURTHER NEEDS AT THIS TIME.
--- NOTE | 2021-01-04 11:19 | NUR ---
Written consent obtained for surgery. Patient denies sob or breathing difficulty. Chest tube intact/patent to right chest wall. dressing CDI. No notable bubbling or flexuating in water chamber. Patient continues to have sarosang drainage from chest tube. Patient continues to tolerate her chest tube to LCWS. Right upper lung holder are clear, a bit diminished. All other lung holder are clear.
--- NOTE | 2021-01-04 13:59 | NUR ---
01/04/21 1359 Boo,Carlotta 1342 PT ARRIVED TO PACU ON 6L VIA MASK, VSS. PT WAKES EASILY AND IS REOREINTED TO PACU.
--- NOTE | 2021-01-04 14:15 | NUR ---
Attempted to see pt, she is out of room for a proceeder. Will see tomorrow.
--- NOTE | 2021-01-04 14:44 | OR ---
[facility] [address] [place], [place] [address] Signed DATE OF OPERATION: 01/02/2021 SURGEON: Mare Montano MD PREOPERATIVE DIAGNOSES: 1. Recurrent right pneumothorax; history of a 10-Guatemalan right chest tube two days ago. 2. Underlying chronic lung disease. POSTOPERATIVE DIAGNOSES: 1. Recurrent right pneumothorax; history of a 10-Guatemalan right chest tube two days ago. 2. Underlying chronic lung disease. PROCEDURE: Placement of right 20-Guatemalan chest tube. ANESTHESIA: Intravenous sedation Versed 2 mg. INDICATION: This 70-year-old white woman was admitted to the hospital on December 31 for an ongoing treatment following a mini chest tube placement in the ER for a large right-sided pneumothorax. She has underlying chronic lung disease, possibly fibrosis and emphysematous disease. She had initial improvement of her lung expansion that had some persistent pneumothorax noted yesterday. She had refused any suctioning on the chest tube device, though acquiesced to it yesterday. This morning she feels fullness in the upper part of her chest as she had when she presented and there appears to be no fluctuation of the Pleur-evac device. A chest x-ray this morning shows a much larger pneumothorax. She has no respiratory distress otherwise however. I have recommended replacement of a more conventional larger chest tube to allow for expansion of the lung. The risks of bleeding, infection, and so forth were reviewed with her. I did recommend Versed and fentanyl be given, but she refused the fentanyl, though ultimately allowed for Versed to be given. FINDINGS: There is crepitus on the chest wall on the right side as previously noted on the chest x-ray and clinically demonstrated as well. The small mini chest tube was removed. It appeared to have some fibrin plugging within its lumen, which may have account for its dysfunction. The 20-Guatemalan chest tube was placed without complication and followup chest x-ray showed much improvement of the expansion of the lung. There remains an apical pneumothorax. There were no complications. She tolerated the procedure well. Electronically Signed By: MARE MONTANO MD 01/04/21 1444 PATIENT NAME: MARJORIE MUSTAFA OPERATIVE REPORT DATE OF : 48 REPORT #: [id number] PHYSICIAN: MARE MONTANO MD PCP: BRUCE PFEIFFER MD REPORT IS CONFIDENTIAL AND NOT TO BE RELEASED WITHOUT AUTHORIZATION [facility] [address] [place], [place] [address] Signed O2 saturations remained 98% throughout. DESCRIPTION OF PROCEDURE: In the semirecumbent position the head of bed slightly up, the right chest wall was examined and some crepitus was noted in the lateral chest wall. The chest tube previously placed was removed and there appeared to be some minimal fibrin material within the tube, possibly accounting for its dysfunction. The right chest wall was then prepared with a Betadine solution and draped sterilely. A 1% lidocaine with epinephrine was injected transversely somewhat medially in what may well be the 6th or 7th interspace area. 2 mg of Versed were administered. She was communicative throughout, but much more sedate than she would have otherwise been I am certain. A transverse incision was made with a 10 blade over the right anterior axillary line inferior to the breast in using a heavy Terrie clamp soft tissue . Direct entry of the pleural space over the right rib was undertaken. Egress of air was noted. There was no blood or other problem. Digital examination was minimal, but did show the entry to the pleural space. A 20-Guatemalan chest tube was insinuated through the path of least resistance into the pleural space and attached to a Pleur-evac device. This showed a fair amount of air leak as might be expected but also confirming the position of the tube in the pleural space. The wound was closed with interrupted 0 silk suture and secured more fully. [place] tape was applied across the connection between the Pleur-evac device and the chest tube, anticipating a zip tie to be additionally applied. A sterile dressing was applied and the area was secured with pink tape. A postprocedure chest x-ray showed much improvement of the pneumothorax, though there remains an apical pneumothorax at this time. Initial fluctuation of the tube was quite good, it is less so now. We will obtain a followup chest x-ray in several hours to assess progress. MD TERESA Lilly/MODL /[id number] Copies: ~ Electronically Signed By: MARE MONTANO MD 01/04/21 1444 PATIENT NAME: MARJORIE MUSTAFA OPERATIVE REPORT DATE OF : 48 REPORT #: [id number] PHYSICIAN: MARE MONTANO MD PCP: BRUCE PFEIFFER MD REPORT IS CONFIDENTIAL AND NOT TO BE RELEASED WITHOUT AUTHORIZATION
--- NOTE | 2021-01-04 15:07 | NUR ---
Patient back from surgery. Patient awake, alert and oriented. Vital signs are stable, cpox 99% on 2L oxygen per nc. Chest tube to right lateral chest is CDI, tube is patent with scant sarosang drainage noted in tube. Dressing CDI. Chest tube to CLWS at 60. This RN attemtped to increase to the ordered 80 however patient became anxious and requested I not titrate until clarifying with provider. Ensured patient I would call provider to double check order. Patient denies sob and or chest pain. Small intermittent bubbline noted with coughing. Water chamber has notable flexuation with inspiration/expirations.
--- NOTE | 2021-01-04 15:18 | NUR ---
Called Dr. Emmanuel to sharonmariano wall suction order. Current order to continue wall suction at -80.
--- NOTE | 2021-01-04 15:29 | NUR ---
Increased wall suction to 80 per provider order. Education provided to patient. Patient receptive to plan of care and reports she is tolerating the suction well at this time.
--- NOTE | 2021-01-04 15:58 | NUR ---
Patient sitting up on edge of bed, no distress. Vital signs are stable, cpox is 98% on 2L oxygen per nc. Chest tube to right chest is CDI, patent tubing with sarosang drainage in tubing. Chest tube at 80 per cont wall suction, pt tolerating well. Flexuation noted in water chamber with inspir/expiration. Patient has no reported distress and no needs. Personal supplies and call light within reach.
--- NOTE | 2021-01-04 17:18 | NUR ---
Dr. Emmanuel made aware of most recent elevated bp. 207/80, p72. Patient declined medication for blood pressure and pain medication at this time.
--- NOTE | 2021-01-04 17:38 | NUR ---
Patient resting in bed, no distress. Right chest tube remains to continuous wall suction at 80. Water chamber flexuates with inspiration/expirations. Patient declining bp and pain medication. Patient reports her pain is tolerable at this time. No current needs. Personal supplies and call light within reach.
--- NOTE | 2021-01-04 18:03 | NUR ---
PATIENT UP TO COMMODE WITH STANDBY ASSIST. VITALS IN
--- NOTE | 2021-01-04 18:15 | NUR ---
Patient declines blood pressure and pain medication.
--- NOTE | 2021-01-04 19:39 | NUR ---
REPORT RECEIVED FROM DAY SHIFT RN. PT LYING IN BED ALERT AND ORIENTED. REPORTS PAIN IS TOLERABLE. CHEST TUBE TO LCWS. DRESSING INTACT. SpO2 100% ON 2L/NC. PT DENIES NEEDS AT THIS TIME. WHITE BOARD UPDATED. CALL LIGHT IN REACH.
--- NOTE | 2021-01-04 20:45 | NUR ---
PT UP TO BATHROOM NEAR 2009. VOIDED AND HAD UNMEASURED RED LIQUID, WATERY LIKE IN TOLIET BOWL, WELL SPLATTER ON TOILET SEAT AND UPPER BOWL AREA. PT CONCERNED, DENIED PAIN, DENIED DIZZINESS. NOTIFIED DR MONTANO AT THIS TIME. NO NEW ORDERS AT THIS TIME.
--- NOTE | 2021-01-04 20:51 | NUR ---
EVENING ASSESSMENT COMPLETE. SCHEDULED TYLENOL ADMINISTERED EARLY PT PAIN 10/10 IN RIGHT CHEST WALL. 500 MG ADMINISTERED PER PT REQUEST. DRESSING TO RIGHT CHEST CDI. RIGHT CHEST TUBE TO LCWS AT 80 MMHG. CHAMBER SUCTION AT -20 CM. CREPITUS NOTED. PT DENIES SOB. OCCASIONAL COUGH NOTED. SpO2 100% ON 2L/NC. BP ELEVATED. PT AWARE AND REFUSING PRN FOR HTN. PT HAS NOT HAD BM FOR 2 DAYS. PRUNE JUICE PROVIDED. PT DENIES QUESTIONS OR CONCERNS AT THIS TIME. CALL LIGHT IN REACH.
--- NOTE | 2021-01-04 22:15 | NUR ---
PT LYING ON LEFT SIDE IN BED. RESPIRATIONS EVEN. SpO2 100% WITH 2L/NC IN PLACE. NO APPARENT DISTRESS.
--- NOTE | 2021-01-05 00:21 | NUR ---
PT CONTINUES RESTING ON LEFT SIDE WITH EYES CLOSED. RESPIRATIONS EVEN. CHEST TUBE UNCHANGED. SpO2 100%. HR 60'S.
--- NOTE | 2021-01-05 00:22 | OR ---
[facility] [address], [place] [address] Signed DATE OF OPERATION: 01/04/2021 SURGEON: Mare Montano MD PREOPERATIVE DIAGNOSES: 1. Recurrent/persistent right pneumothorax (history of chest tube x2). 2. Underlying advanced pulmonary disease including fibrotic and bullous disease. POSTOPERATIVE DIAGNOSES: 1. Recurrent/persistent right pneumothorax (history of chest tube x2). 2. Underlying advanced pulmonary disease including fibrotic and bullous disease. PROCEDURES: 1. Removal of 20-Tanzanian chest tube. 2. Placement of right 32-Tanzanian straight chest tube. ANESTHESIA: Local with monitored anesthesia care, Christelle Valladares CRNA INDICATIONS: This 70-year-old white woman was admitted on 12/31/2020 with a rather large spontaneous right-sided pneumothorax. The lung was brought up with a 10-Tanzanian chest tube, but it quickly failed after about 24 hours, likely related to the fibrinous accumulation. She did not have much of an effusion to start with. The chest tube was replaced two days ago with a 20-Tanzanian chest tube placed at the bedside. It was notable the patient has a strong and enduring aversion to any IV medications including medications offered for pain or her underlying hypertension. Indeed, she refuses oral medications even. A second chest tube that was placed at the bedside was undertaken with 2 mg of Versed and my strong urging and was reasonably well tolerated. The chest tube had good respiratory variation and did allow for improvement of her pneumothorax, but has again become dysfunctional. Yesterday, the tube was irrigated with saline solution (sterile), which did improve her chest x-ray appearance today, but it did still show an apical pneumothorax and of course her bilateral infiltrative appearance. The patient refuses any COVID testing and has not been COVID vaccinated. A CT scan was performed yesterday, which confirmed an impressive array of many, many Electronically Signed By: MARE MONTANO MD 01/05/21 0022 PATIENT NAME: MARJORIE MUSTAFA OPERATIVE REPORT DATE OF : 48 REPORT #: [id number] PHYSICIAN: MARE MONTANO MD PCP: BRUCE PFEIFFER MD REPORT IS CONFIDENTIAL AND NOT TO BE RELEASED WITHOUT AUTHORIZATION [facility] [address], [place] [address] Signed pulmonary blebs in the right and left side and with persistence of pneumothorax and placement of the 20-Tanzanian chest tube in the inferior aspect. Although, she has improved today following irrigation of the chest tube. I think it is an unreliable tube and on examination late in the day-to-day did show it to be "." On that basis, I have recommended removal of the tube and application of a larger tube and directed superiorly to allow for full lung expansion, and hopefully resolution of any bleb air leak that may have contributed to her pneumothorax. While the patient is averse to essentially all oral and intravenous medications. She does agree to IV sedation for this purpose and wishes to proceed. FINDINGS: Good sedation was provided. Her hypertension, which was significant, improved with IV sedation and intravenous medications administered by the claims service representative. The previous chest tube was removed and was shown to have considerable amount of fibrinous occlusion within the distal portion. Interrogation of the pleural space showed it to be free of adhesions. A 34-Tanzanian chest tube was placed, directed in the superior medial aspect and secured. There was no sign of ongoing air leak at most recent examination. In the recovery room, chest x-ray showed good expansion of the lung and good position of the tube directed in the superior medial aspect position. DESCRIPTION OF PROCEDURE: The patient was brought to the operating room and placed on the operative table. A fair amount of psychologic stress was noted by the patient, has had previously during the case. She was placed in the supine position, given intravenous propofol infusional sedation, which improved her blood pressure and which was quite markedly beneficial to the overall process. The bandages and so forth related to the previous chest tube were removed and the chest tube was removed by me, examined and found to have a fibrinous plugging of the lumen on the thoracic side. The chest wall was prepared with a chlorhexidine solution and draped sterilely. Consideration was made for placement through a separate site, this seemed more appropriate to use the recently interrogated site, and on that basis additional 0.25% Marcaine with epinephrine was injected locally. Additional local was injected internally over the rib and in an area not previously traversed. The pleural space entered carefully with a Terrie clamp. Digital examination through the defect showed the pleural space to be free of adhesions or neoplastic change. A straight 32-Tanzanian chest tube was insinuated into the site and directed in a superior Electronically Signed By: MARE MONTANO MD 01/05/21 0022 PATIENT NAME: MARJORIE MUSTAFA OPERATIVE REPORT DATE OF : 48 REPORT #: [id number] PHYSICIAN: MARE MONTANO MD PCP: BRUCE PFEIFFER MD REPORT IS CONFIDENTIAL AND NOT TO BE RELEASED WITHOUT AUTHORIZATION [address] [address] Signed direction. This was attached to the atrium, Pleur-evac type device, which showed an air leak initially. It was secured to the device later with pink tape. The chest tube was at approximately 10 cm at its marking at the skin and secured stoutly with a 2-0 Prolene suture doubly applied. A gauze dressing was applied as was silk tape to the site. The chest tube itself was secured in two separate areas with pink tape as well. She was allowed to emerge from sedation and taken to the recovery room in good condition. An upright chest x-ray was performed showing good expansion of the lung. There may be a miniscule apical pneumothorax with the tube and is oriented in the superior medial direction in an appropriate way. The patient tolerated the procedure well. BLOOD LOSS: Minimal. COMPLICATIONS: None. MD TERESA Lilly/MISTYL /[id number] Copies: ~ Electronically Signed By: MARE MONTANO MD 01/05/21 0022 PATIENT NAME: MARJORIE MUSTAFA OPERATIVE REPORT DATE OF : 48 REPORT #: [id number] PHYSICIAN: MARE MONTANO MD PCP: BRUCE PFEIFFER MD REPORT IS CONFIDENTIAL AND NOT TO BE RELEASED WITHOUT AUTHORIZATION
--- NOTE | 2021-01-05 02:00 | NUR ---
PT RESTING IN BED WITH EYES CLOSED. RESPIRATIONS EVEN. NO APPARENT DISTRESS.
--- NOTE | 2021-01-05 03:34 | NUR ---
CALL LIGHT ANSWERED. PT REQUESTING PRN FOR 10/10 RIGHT CHEST WALL PAIN. ADMINISTERED PER EMAR. FRESH WATER PROVIDED. BSC EMPTIED. PT REPORTS SHE HAS BEEN RESTING WELL DESPITE PAIN. CHEST TUBE ASSESSMENT UNCHANGED. DRESSING TO RIGHT CHEST CDI. CREPITUS IMPROVING FROM LAST NOC. SMALL AMOUNT SEROSANG DRAINAGE IN CHAMBER. SpO2 100% ON 2L/NC. PT DENIES SOB. NO FURTHER NEEDS. CALL LIGHT IN REACH.
--- NOTE | 2021-01-05 07:02 | NUR ---
VS AND I&O OBTAINED. PT REPORTS PAIN 7/10 ON RIGHT SIDE. DOES NOT WANT PRN FOR PAIN AT THIS TIME. FRESH WATER PROVIDED. NO FURTHER NEEDS.
--- NOTE | 2021-01-05 08:05 | NUR ---
Patient resting on left lateral side, no notable distress. Chest tube intact and patent with scant sarosang drainage noted in tubing. Chest to wall suction at 80, notable flexuation in water chamber with inspiration/expirations. Patient reports pain is tolerable at this time. Chest tube dressing remains CDI. Patient has no current needs. Personal supplies and call light within reach.
--- NOTE | 2021-01-05 11:39 | NUR ---
Patient is giving herself a independent bed bath. She will be getting ice water. Call light is in reach.
--- NOTE | 2021-01-05 11:51 | NUR ---
Patient sitting up on edge of bed, no distress. Chest tube intact to right chest wall, wall suction to 80, water seal chamber continues to flexuate with inspiration/expiration. Patient denies sob or difficulty breathing. Patient declining blood pressure and pain medication. Blood pressure continues to be elevated-pt has been refusing meds for this. Patient reports feeling overall well. Patient on 2L oxygen per nc, respirations non labord. Personal supplies and call light within reach.
--- NOTE | 2021-01-05 13:00 | NUR ---
PATIENT APPEARS SLEEPING. NO CHANGE IN DISCHARGE PLAN AT THIS TIME.
--- NOTE | 2021-01-05 14:40 | NUR ---
Dr. Whitley in to see patient.
--- NOTE | 2021-01-05 14:45 | NUR ---
Dr. Whitley aware of trending high blood pressures. Patient continues to decline medication for HTN and or pain.
--- NOTE | 2021-01-05 16:58 | NUR ---
Patient's oxygen saturation has been trending in high 90's throughout this shift with patient on 2l oxygen per nc.
--- NOTE | 2021-01-05 17:39 | NUR ---
Patient sitting up on edge of bed eating dinner, no distress. Elvated bp noted again, pt declining htn medication at this time. Chest tube to right chest is intact and patent to wall suction at 80. Flexuation noted on inspiration/expriation in water chamber, no bubbling. Patient denies sob and or chest pain throughout this shift. Patient reports her pain is tolerable, 2/10. No current needs.
--- NOTE | 2021-01-05 19:30 | NUR ---
IN TO EMPTY BSC, EXTRA ICE WATER AT PT BEDSIDE PROVIEDED, NO FURTHER NEEDS
--- NOTE | 2021-01-05 19:30 | NUR ---
IN ROOM FOR REPORT, PT DENIES NEEDS AT THIS TIME. CHEST TUBE TO SUCTION PER ORDERS AND FUNCTIONING WELL. DRESSING IS CDI. CALL LIGHT IS CLOSE.
--- NOTE | 2021-01-05 21:25 | NUR ---
IN ROOM TO ASSESS PT AND ADMINISTER MEDICATIONS. PT DENIES TYLENOL STATING HER PAIN IS TOLERABLE AT 2/10. PT'S BP IS ALSO ELEVATED AND WAS ALSO ELEVATED ALL DAY. PT REFUSED TAKING MEDICATION FOR BP AND STATES "IT IS ELEVATED BECAUSE I AM IN PAIN AND I HAVE A CHEST TUBE" EDUCATED PT ON WHY THIS RN IS OFFERING IT AND SHE STATES SHE IS NOT INTERESTED IN TAKING IT. CRACKLES NOTED IN R LUNG LOBES BUT OTHERWISE WNL. CHEST TUBE DRESSING IS CDI AND [employer] IS CONNECTED PER ORDER PARAMETERS AND WNL. PT DENIES NEEDS AT THIS TIME. VS TAKEN AND CALL LIGHT IS CLOSE.
--- NOTE | 2021-01-06 06:05 | NUR ---
PT IS RESTING WITH EYES CLOSED, RR IS EVEN AND NONLABORED. CALL LIGHT IS CLOSE CHEST TUBE TO SUCTION PER ORDERS WNL.
--- NOTE | 2021-01-06 06:08 | NUR ---
[facility] DOWNTIME FROM 01/05/21 2300 UNTIL 01/06/21 @ 0600. SEE PAPER CHART FOR ALL DOCUMENTATION IN THAT TIME FRAME.
--- NOTE | 2021-01-06 06:20 | NUR ---
IN TO GET VITALS, I&Os DONE, RN AWARE OF CURRENT VITALS, NO FURTHER NEEDS AT THIS TIME
--- NOTE | 2021-01-06 06:34 | NUR ---
IN ROOM TO CHECK CHEST TUBE DRAINAGE 6MLS NOTED OVERNIGHT. NOT ABLE TO FIND THAT CHEST TUBE OUTPUT WAS PUT IN COMPUTER DURING DAY YESTERDAY. PT CONTINUES TO REPORT PAIN 10/10 AND DENIES WANTING MORE PAIN CONTROL MEDS REQUESTED FROM . PT'S BP REMAINS ELEVATED 213 SBP BUT PT REFUSES MEDICATIONS FOR HTN. PT DENIES OTHER NEEDS AT THIS TIME. CHEST TUBE IN PLACE PER ORDERS TO WALL SUCTION AND CALL LIGHT IS CLOSE. CPOX READS 99% AT THIS TIME ON 2LNC.
--- NOTE | 2021-01-06 07:30 | NUR ---
Report recieved from maintenance technician 2nd shift RN, patient sitting in bed, no needs at the time.
--- NOTE | 2021-01-06 08:16 | NUR ---
PT SITTING UP IN BED WATCHING TV. BREAKFAST SERVED. UPDATED WHITE BOARD, TIDIED ROOM. CALL LIGHT WITHIN REACH, NO FURTHER NEEDS.
--- NOTE | 2021-01-06 09:24 | NUR ---
PT NOT DONE WITH BREAKFAST YET. PT IN A DISAGREEABLE MOOD. PT REFUSED TO LET THIS ROAD MIXER OPERATOR ADJUST THE BP CUFF SO THAT IT WAS MORE SECURE. VS DONE, WILL CHECK BACK IN SHORTLY FOR I&O'S. FRESH WATER GIVEN. PT REFUSED WARM CLOTH. CALL LIGHT WITHIN REACH, NO FURTHER NEEDS AT THIS TIME.
--- NOTE | 2021-01-06 09:45 | NUR ---
RN enformed by THAI MASSEUR that patient bp is 227/91. RN offered tylenol and nitro to help with discomfort and high bp. patient refused Dr Whitley informed.
--- NOTE | 2021-01-06 10:40 | NUR ---
Dr Whitley rounding on patient per verbal order place chest tube to water seal.
--- NOTE | 2021-01-06 11:46 | NUR ---
patient called out stating heart rate is 136. RN in to assess patient, patient in room monitoring heart rate with own home pulse oximeter, rn attempted to check bp and offered nitro to hlep with heart rate patient refused. patient request ice bucket with water to dump face in. RN provided patient with ice water per request pulse down to 88. denies any other needs at the moment.
--- NOTE | 2021-01-06 13:45 | NUR ---
patient complaining of increased pain at chest tube site, provided warm pack to help with discomfort.
--- NOTE | 2021-01-06 14:01 | NUR ---
PT SITTING UP IN BED. PT COMPLAINING OF PAIN IN LEFT LUNG. PT REQUESTING SUPPLIES FOR AN INDEPENDENT BB LATER. SUPPLIES AND FRESH ICE WATER BROUGHT. PT HAD NO INTAKE (FOOD HESS) FOR LUNCH DUE TO REFUSING LUNCH ALTOGETHER. TOMASZ HORN NOTIFIED. CALL LIGHT WITHIN REACH, NO FURTHER NEEDS AT THIS TIME.
--- NOTE | 2021-01-06 16:08 | NUR ---
RN in to round on patient, pateint is more comfortable this afternoon states warm pack helped her pain, resting in bed, chest tube remains intact and functioning, denies any needs at the moment.
--- NOTE | 2021-01-06 16:45 | NUR ---
Spoke with Jana, states she is wanting to go home, tired of the hospital. Chest tube remains in. Denies needs. Plans on dc to home when she is cleared medically.
--- NOTE | 2021-01-06 17:32 | NUR ---
rn delivered dinner tray patient sitting in bed eating dinner, denies any needs at the moment.
--- NOTE | 2021-01-06 17:51 | NUR ---
PT IN A CHATTY BUBBLY ROOM. PT DID ORAL CARE. CALL LIGHT WITHIN REACH, NO FURTHER NEEDS. PT DID THIER OWN BED BATH A WHILE AGO.
--- NOTE | 2021-01-06 19:00 | NUR ---
RN IN TO ASSESS CHEST TUBE OUTPUT ONLY HAD 11CC OUT, PATIENT DENIES PAIN, NO SOB, ASKING QUESTIONS OF HOW THE NITRO PASTE WORKS, PATIENT EDUCATED, DENIES ANY NEEDS AT THE MOMENT
--- NOTE | 2021-01-06 19:25 | NUR ---
SHIFT REPORT RECEIVED FROM JUSTINA TOLBERT. PT RESTING IN BED. SPO2 98% ON 2L NC. CHEST TUBE WNL. CALL LIGHT IN REACH.
--- NOTE | 2021-01-06 21:00 | NUR ---
ASSESSMENT, VS AND I&O COMPLETED. GCS 15, A&O X4. LUNGS SOUNDS ARE FINE CRACKLES IN RUL, RLL DIM, LEFT LOBES CLEAR. INCISION SITE CDI, WNL. TUBE AND CHAMBER WNL, GOOD FLUCTUATION OF BALL AND VERY LITTLE BUBBLING IN WATER SEAL CHAMBER. SMALL AMOUNT OF SS IN COLLECTION CHAMBER. PT REPORTS 2/10 RIGHT CHEST WALL PAIN, DECLINES MED FOR PAIN. HEART TONES RGULAR. ABD SOFT, NONTENDER, BOWEL TONES ACTIVE. CMS INTACT. IV WNL, CDI, FLUSHED WELL. SPO2 98% ON 2L NC. ICE WATER PROVIDED, HEAT PACK PROVIDED. NO OTHER NEEDS. CALL LIGHT IN REACH.
--- NOTE | 2021-01-06 23:00 | NUR ---
PT RESTING IN BED. SPO2 97% ON 2L. CALL LIGHT IN REACH.
--- NOTE | 2021-01-07 01:38 | NUR ---
PT CALLS TO REPORT SHE THINKS THE BALL IN THE WATER SEAL CHAMBER IS NOT MOVING ENOUGH. CHEST TUBE AND COLLECTION DEVICE WNL, EDUCATION PROVIDED. NO OTHER NEEDS. CALL LIGHT IN REACH.
--- NOTE | 2021-01-07 04:00 | NUR ---
SPO2 NOT SHOWING ON MONITOR, RPLACED, RESOLVED. ASSESSMENT COMPLETED. RIGHT LUNGS CLEAR AND DIM, LEFT LUNGS CLEAR. CHEST TUBE SITE WNL, DRESSING CDI. TUBE AND COLLECTION DEVICE WNL. RIGHT CHEST WALL PAIN 3/10 UNLESS SHE MOVES, DENIES NEED FOR PAIN INTERVENTION. NO OTHER NEEDS. SPO2 99% ON 2L NC. CALL LIGHT IN REACH.
--- NOTE | 2021-01-07 06:00 | NUR ---
PT RESTING IN BED. SPO2 100% ON 2L NC. CALL LIGHT IN REACH.
--- NOTE | 2021-01-07 07:10 | NUR ---
report recieved patient in bed , call light with in reach no needs at the time
--- NOTE | 2021-01-07 09:00 | NUR ---
RN IN TO ASSESS PATIENT PATIENT PATIENT CHEST TUBE NOTED TO HAVE BUBBLING, RN NOTIFIED DR LAUREANO, INFORMED OF CHEST XRAY RESULT PER DR LAUREANO PLACE CHEST TUBE BACK TO WALL SUCTION.
--- NOTE | 2021-01-07 09:59 | NUR ---
PT SAYS THEY DID NOT SLEEP WELL LAST NIGHT. PT SEEMS A LITTLE GROGGY. WHITE BOARD UPDATED. PT REFUSED WARM CLOTH. CALL LIGHT WITHIN REACH, NO FURTHER NEEDS AT THIS TIME. FRESH WATER BROUGHT.
--- NOTE | 2021-01-07 11:21 | NUR ---
RN in room to round on patient sitting on edge of bed denies any needs at the moment.
--- NOTE | 2021-01-07 12:55 | NUR ---
OFFERENT PT BB, PT REFUSED. RN JUSTINA NOTIFIED. CALL LIGHT WITHIN REACH, NO FURTHER NEEDS AT THIS TIME.
--- NOTE | 2021-01-07 14:03 | NUR ---
PT SITTING ON EDGE. PT COMPLAINS OF NOT SLEEPING WELL THE PREVIOUS NIGHT. PT SAYS THE AREA AROUND THE SURGICAL SITE NOW HAS A BURNING SENSATION. RN JUSTINA NOTIFIED. FRESH WATER BROUGHT. CALL LIGHT WITHIN REACH, NO FURTHER NEEDS AT THIS TIME.
--- NOTE | 2021-01-07 14:18 | NUR ---
RN in to assess patient patient complaining of irritation at chest tube insertion site. provided an ice pack per patient request. denies any other needs at the moment
--- NOTE | 2021-01-07 17:24 | NUR ---
PT SITTING UP IN BED SMILING. PT SAYS THEYRE FEELING BETTER. ROOM TIDIED, WATER REFRESHED. WILL COME BACK FOR I&O'S. CALL LIGHT WITHIN REACH, NO FURTHER NEEDS AT THIS TIME
--- NOTE | 2021-01-07 18:51 | NUR ---
rn in room to round on patient, denies any needs at the moment , remain on 2L nc, pulse oximeter on and functioning.
--- NOTE | 2021-01-07 20:31 | NUR ---
sitting edge of bed, on 2L NC, R upper lung with crackles, R chest tube patent to cont low wall suction. dim at R base, Left lung clear, no sob noted with exertion or while talking. tele/cpox#[address], sats 99%. reassured as she had multiple areas of concern. BP coop. with assessment. sl patent. tolerating liquids well, no emesis, independent in room. on Airborne isolation precautions. call light at hands reach
--- NOTE | 2021-01-07 23:23 | NUR ---
tele battery changed, sats 99%. Awake, 2LNC, sitting in bed, awake, denies c/o pain. R chest tube patent, in place, to cont wall suction, no changes. tolerating liquids well, voiding qs. had bm earlier on shift.
--- NOTE | 2021-01-08 03:36 | NUR ---
Resting, laying on left side, O2 2LNC, R chest tube to wall suction, patent. no c/o pain or sob. uses BSC. fluids and call light at hands reach, tele/cpox in [facility], sat 99-100%
--- NOTE | 2021-01-08 05:19 | NUR ---
pt awakes easily, turns and repositions self in bed. on 2LNC, lungs R crackles and di,. R chest tube to wall suction, no drainage in tube at this time. denies c/o pain at site. no sob with exertion. uses BSC. had bm, voiding QS. sl patent. tolerating liquids and diet well. aware of am CXR this am. uses call light. on Airborne isolation precautions. coop with assessments. denies c/o s/sx of high BP. BP at begining of shift was 206/97, this am was 188/93, pt aware to call nursing staff if needed r/t s/sx of high bp. stated understanding. tele/cpox in place, sats 99-100%.
--- NOTE | 2021-01-08 07:39 | NUR ---
Report recieved from night worker RN, patient resting in bed, pulse oximeter on and fucntioning, R chest tube intact, call light within reach.
--- NOTE | 2021-01-08 08:48 | NUR ---
RN in to do assessment, chest tube is no longer fluctuating with inspiration and has crepitus around insertion site. patient 98% ON 2L NC , not currently in distress.chest xray done this AM, results pending Dr Whitley notified. will be in to see her later this morning.
--- NOTE | 2021-01-08 09:37 | NUR ---
PT CALLS REPORTING PREASURE IN CHEST AND NAUSEA. THIS RN TO BEDSIDE TO ASSESS PT. PT IS DENIES SOB. SPO2 IS 96% ON 2L NC. RR 18. HEART RATE 72. LUNGS SOUNDS: LEFT LUNG CLEAR THROUGHOUT. RIGHT LUNG WITH CONGESTED LUNG SOUNDS. CHEST TUBE NOT TITALING AND WATER SEAL IS AT TOP OF DEVICE. SUCTION TURNED OF AND TITALING RESUMED. LET PT SIT WITHOUT SUCTION CONNECTED FOR 2 MINUTES. SUCTION THEN TURNED BACK ON. AFTER 10 MINUTES OF SITTING, CHEST TUBE DEVICE SEEMS TO BEE WORKING AGAIN AND CHEST PREASURE IS DECREASED. SPO2 NOW 98% AND HR 72 RR 18. DENEIS FURTHER NEEDS
--- NOTE | 2021-01-08 09:53 | NUR ---
PT SITTING UP IN BED. PT REFUSED CHAIR. PT SAYS THEY ARE HAVING SOME LUNG DISCOMFORT. TOMASZ HORN NOTIFIED. WHITE BOARD UPDATED. PT REFUSED WARM WASHCLOTH. CALL LIGHT WITHIN REACH, NO FURTHER NEEDS AT THIS TIME. FRESH WATER AND HEAT PACK BROUGHT.
--- NOTE | 2021-01-08 11:00 | NUR ---
Dr Whitley in to round on patient, patient chest tube fluctuating with inspiration. see provider notes and order. patient denies any needs at the moment.
--- NOTE | 2021-01-08 11:25 | NUR ---
christopher in xray notified to send xrays to [facility] per Dr Whitley request.
--- NOTE | 2021-01-08 12:57 | NUR ---
RN in room to change tele battery, patient sitting up in bed lunch tray provided, water filled, denies any needs at the moment
--- NOTE | 2021-01-08 14:17 | NUR ---
PT WAS HAPPILY SITTING UP IN BED FILING THIER NAILS.PT INITIALLY REFUSED LUNCH BUT WAS PERSUADED TO HAVE SOMETHING LIGHT. PT IN MUCH BETTER MOOD NOW. CALLL LIGHT WITHIN REACH, NO FURTHER NEEDS AT THIS TIME. FRESH WATER BROUGHT.
--- NOTE | 2021-01-08 14:52 | NUR ---
RN IN ROOM TO ROUND ON PATIENT, PATIENT SITTING IN BED, CHEST TUBE WORKING PROPERLY TO WALL SUCTION TIDIALING, DENIES ANY NEEDS AT THE MOMENT.
--- NOTE | 2021-01-08 15:43 | NUR ---
OFFERED PT BB SUPPLIES. PT INDEPENDENT WITH THIER BED BATHS. PT UNSURE OF WETHER OR NOT THEY WANT TO TAKE A BB. SUPPLIES PROVIDED JUST IN CASE. CALL LIGHT WITHIN REACH, NO FURTHER NEEDS AT THIS TIME
--- NOTE | 2021-01-08 17:02 | NUR ---
RN DELIVERED DINNER TRAY TO PATIENT, SITTING AT THE EDGE OF THE BED, DENIES ANY NEEDS.
--- NOTE | 2021-01-08 18:00 | NUR ---
PT SAYS THEY HAVE NO PAIN. CHEST TUBE DRAINAGE 30 CC. PT SEEMS TO BE HAPPIER. ROOM TIDIED. CALL LIGHT WITHIN REACH, NO FURTHER NEEDS AT THIS TIME.
--- NOTE | 2021-01-08 18:44 | NUR ---
rn in room to round on patient denies any needs at the moment.
--- NOTE | 2021-01-08 20:54 | NUR ---
sitting in bed, watching tv, flat affect, cooperative with assessments. on 2lnc. r chest tube to cont wall suction. patent. no sob. Right lung with crackles t/o, slight edema front chest and lateral side of chest tube present, no changes from yesterday. no crepitus felt. no sob with exertion. Up to BSc, voiding qs. LFA sl patent. bp 216/91, denies s/sx hypertension. " I do not have high bp at home, I do not take meds, its just being here this situation, the stress", concerns acknowledged, reassured. reiterated to please notify nursing staff if s/sx of high bp or chest pain, increaesd sob. stated understanding.
--- NOTE | 2021-01-08 21:10 | NUR ---
concerned about irregular heart rate dropping. concerns acknowledged, reassured, denies cp, or s/sx of high bp. cpox in place 100% on 2L, [id number]
--- NOTE | 2021-01-08 21:53 | NUR ---
PT CALLED, CONCERNED ABOUT THE WHITE BALL FLUCTUATION LEVEL IN THE OASIS BETHEL TUBE CONTAINER. "I GO BY WHAT MY BODY TELLS ME, IF I FEEL A LUMP ON MY THROAT AND PRESSURE ON MY RIGHT CHEST SIDE I KNOW THAT THE TUBE IS NOT WORKING". WALL SUCTION OFF AT HER REQUESTS, BUBBLIN PRESENT UP TO 10-11,. NO SOB . CPOX READING 100%, NO CHANGE IN LUNG SOUNDS. SUCTION BACK ON. BUBBLING PRESENT. REASSURED, NOT VERY SATISFIED, MULTIPLE C/O R/T EQUIPMENT. WILL HAVE CHARGE NURSE SEE PT
--- NOTE | 2021-01-09 00:51 | NUR ---
pt concerned abouot the white bubble not moving in the [place] collection chamber which is between 10-13 at times. connected to wall suction, tidaling seen. R chest tube intact. underlying subcutaneous edema w/o changes r flank and upper chest. Lungs with crackles upper and low lobe, no sob, cpox at 100%, concerned about high bp, declines to have med started for htn. concerned about hr "all over the place", "at home it stays stable, it does not fluctuate", semireceptive to teaching, irritable affect, "you guys obviously get no training an any of your equiptment, this sis hurting my lung". pulse 65-81.
--- NOTE | 2021-01-09 01:13 | NUR ---
daylight time savings note: Float nurse in room explaining chest tube collection container procedures to pt. pt more relaxed, no sob, no changes in lungs sounds. R chest tube to cont wall suction. chest tube patent. in place. cpox 100% 971, Resp 22. repositioned self in bed, O2 2LNC
--- NOTE | 2021-01-09 02:58 | NUR ---
rESTING, EYS CLOSED, ON 2lnc CPOX #1 100% P64, NO DISTRESS, R CHEST TUBE TO CON WALL SUCTION. PATENT. CALL LIGHT AND FLUIDS AT BEDSIDE, CONT ON AIRBORNE ISOLATION PRECAUTIONS
--- NOTE | 2021-01-09 06:41 | NUR ---
was sleeping soundly, on 2LNC, cpox #1 100% 58p, no resp distress. R chest tube patent. very small amount of drainage noted in tubing. cont on wall suction. Decreased subcutaneous enphyzema of front upper chest and lateral upper back, dressing intact. pt states she feels better. bp this amd awakens easily, voiding QS, toleratiang liquids. coop with this am CXR
--- NOTE | 2021-01-09 06:51 | NUR ---
Will notify MD of pts concerns during the night and of bp 216/92 at begining of shift, this am bp 163/91
--- NOTE | 2021-01-09 07:30 | NUR ---
dr Whitley updated on pt.
--- NOTE | 2021-01-09 09:00 | NUR ---
REPORT RECEIVED FROM NIGHT RN AND PT. CARE RESUMED. PT IS ON THE BSC. HAD A SMALL BM AND VOIDED. PT. DENIES PAIN. CHEST TUBE DRESSING IS C.D.I. OASIS WATER SEAL CONTAINER IS CONNECTED TO LOW WALL SUCTION. CHEST TUBE DRAINAGE IS 20ML FOR ROLL TESTER. CREPITUS PALPATED IN RIGHT UPPER CHEST. 02 SAT. IS 100% ON 2L NC. IV SITE WNL AND FLUSHES WELL. PT. APPEARS CALM AND DENIES NEEDS AT THIS TIME. R.T. IN THE ROOM. PT. LEFT RESTING WITH CALL LIGHT IN REACH.
--- NOTE | 2021-01-09 10:13 | NUR ---
PT SAYS THEY DID NOT SLEEP WELL. PT SEEMS EXHAUSTED. ROOM TIDIED, WHITE BOARD UPDATED. CALL LIGHT WITHIN REACH, NO FURTHER NEEDS AT THIS TIME.
--- NOTE | 2021-01-09 14:00 | NUR ---
PT. IS UP TO EOB. SHE DENIES PAIN. SHE IS CONCERNED ABOUT THE THORACIC PRESSURE READING OF CHEST TUBE DRAINAGE CONTAINER AND ASKED THIS NURSE TO PRESS THE BUTTON AND RESET. PT. EDUCATED ON DEVICE. CHEST TUBE INSERTION SITE DRESSING IS C.D.I. SHE REPORTS THAT SHE FELT A "LUMP IN HER THROAT" EARLIER DUE TO THE CHEST TUBE "CAUSING PRESSURE" BUT IT HAS STOPPED. CREPITUS STILL PRESENT UNDER RIGHT ARM. NO BUBBLING NOTED IN CHEST TUBE DRAINAGE CONTAINER. PT. LEFT RESTING WITH CALL LIGHT IN REACH.
--- NOTE | 2021-01-09 14:47 | NUR ---
PT GAVE THEMSELF A BB. PT SAYS THEYRE FEELING A LITTLE BETTER THAN THEY WERE THIS MORNING. CALL LIGHT WITH REACH, NO FURTHER NEEDS AT THIS TIME.
--- NOTE | 2021-01-09 17:03 | NUR ---
PT. BROUGHT DINNER AND FRESH WATER. PT. DENIES PAIN OR SOB AT THIS TIME. SHE IS SITTING ON THE EOB.
--- NOTE | 2021-01-09 18:18 | NUR ---
CHEST TUBE DRAINAGE HAS BEEN APPROXIMATELY 15ML THIS SHIFT. CHEST TUBE INSERTION DRESSING DRY AND INTACT, AND REINFORCED BY THIS NURSE WITH SILK TAPE IT WAS PEELING. PT. DENIES PAIN AT THIS TIME. PT. EDUCATED ABOUT THE RISKS OF HYPERTENSION. PT. STATES "MY BLOOD PRESSURES AREN'T THIS HIGH AT HOME. YOU WOULD BE SURPRISED AT THE BODY'S ABILITY TO HEAL ITSELF". PT. BROUGHT FRESH WATER AND TEA. LEFT RESTING WITH CALL LIGHT IN REACH.
--- NOTE | 2021-01-09 18:26 | NUR ---
PT UP. PT LAUGHING AND SMILING. CALL LIGHT IN REACH, NO FURTHER NEEDS
--- NOTE | 2021-01-09 20:30 | NUR ---
ON 2L NC, DECREASED SUB ENPHYZEMA CHEST, R CHEST TUBE IN PLACE, PATENT TO CONT WALL SUCTION, NO DRAINAGE AT THIST HALLEY. VOIDING SMALL AMOUNT URINE. SL PATEN, TURNS ANDF REPOSITIONS SELF, NO CONCERNS VOICED AT THIS TIME. TOLERATING LIQUIDS WELL
--- NOTE | 2021-01-10 02:15 | NUR ---
RESATING, EYES CLOSED, O2 2L NC, R CHEST TUBE IN PLACE, PATENT TO CONT WALL SUCTION. VERY SCANT AMOUNT OF DRAINAGE. TOLERATING LIQUIDS WELL. CALL LIGHT AT BEDSIDE, VOIDING QS, USES BSC, CPOX #[address] SATS 100% p50
--- NOTE | 2021-01-10 06:28 | NUR ---
Pt has slept this shift. on 2LNC, R chest tube to cont wall suction. patent. scant amount of serous drainage noted. dressing intact. c/o mild pain at insertion site but declines tylenol, decreaed subcutaneous emphyzema under upper chest and lateral side and lower r daphney tube area noted. lungs with crackles upper lobe and squeek like wheeze on initial assessment at begining of shift, no sob with exertion. noted or stated. BP elevated 205/77 at denies s/sx high bp, this am bp reading 178/89. flat, irritable affect but redirectable. no c/o or concerns voiced this shift. voiding QS, tolerating fluids well
--- NOTE | 2021-01-10 08:01 | NUR ---
PT SITTING UPRIGHT IN BED EATING BREAKFAST. AGREES SHE IS COMFORTABLE DENIES NEEDS. CALL LIGHT IN REACH.
--- NOTE | 2021-01-10 08:47 | NUR ---
Patient refused AM care. Patient is interested in more ice water however. Patient is comfortable and has the call light button in reach. Patient is currently lying in bed.
--- NOTE | 2021-01-10 09:45 | NUR ---
DR MONTANO IN TO SEE PT PLANS GOING FORWARD DISCUSSED. PT WATCHING TV DENIES NEED OF FURTHER INFORMATION OR CONCERNS. NEEDED ITEMS IN REACH
--- NOTE | 2021-01-10 10:30 | NUR ---
205/89 BP. MAP 112. Patient prefers BP being taken on her right arm. Patient refused left arm to be used for taking a BP. RN will be notified.
--- NOTE | 2021-01-10 13:12 | NUR ---
Patient said she has enough bed bath supples already in her room and says that she likes to do it independently.
--- NOTE | 2021-01-10 14:27 | NUR ---
Patient has no requests. Patient's garbage emptied. Vitals, I&Os are complete.
--- NOTE | 2021-01-10 14:33 | NUR ---
Patient's BP was 210/87. MAP 117. Pulse was 75. RN will be notified.
--- NOTE | 2021-01-10 15:20 | NUR ---
DR MONTANO IN TO SEE PT, PUTS ONEWAY VALVE IN PLACE OF PLEURAVAC. EDUCATION PROVIDED FOR PT SHE VERBALIZES UNDERSTANDING. ALL QUESTIONS ANSWERED. PT AGREES TO NOTIFY STAFF OF ANY S/S, CONCERNS, OR DIFFICULTY BREATHING.
--- NOTE | 2021-01-10 18:42 | NUR ---
199/86 BP. 111 MAP. 74 Pulse. Patient has a visitor. RN will be notified.
--- NOTE | 2021-01-10 19:00 | NUR ---
REPORT RECEIVED FROM DAY SHIFT RN. PT LYING IN BED ALERT AND ORIENTED. DENIES NEEDS AT THIS TIME. WHITE BOARD UPDATED. CALL LIGHT IN REACH.
--- NOTE | 2021-01-10 20:30 | NUR ---
PT SITTING ON SIDE OF BED. FRESH WATER PROVIDED. BSC EMPTIED. PT DENIES NEEDS AT THIS TIME.
--- NOTE | 2021-01-10 21:30 | NUR ---
EVENING ASSESMENT COMPLETE. BP ELEVATED. PT REFUSES PRN FOR HIGH BLOOD PRESSURE. PT DENIES PAIN OR SOB. LUNGS CLEAR. SpO2 97-100% ON 2L/NC. RESPIRATIONS EVEN. PT CONCERNED HEIMLICH VALVE PLUGGED DUE TO DRAINAGE IN CHEST TUBE. ATTEMPTED TO REASSURE PT ASSESSMENT WNL. PT INSISTENT DR. MONTANO BE NOTIFIED. THIS RN SPOKE WITH DR. MONTANO AND EXPRESSED PTS CONCERNS WELL ASSESSMENT FINDINGS. ORDERS RECEIVED FOR CHEST XRAY IN AM. DISCUSSED CONVERSATION WITH DR. MONTANO WITH PT AND PROVIDED REASSURANCE. PT VERBALIZED UNDERSTANDING AND THIS RN WILL CONTINUE TO MONITOR CHEST TUBE AND PT. TELE #[address] FOR MONITORING. PT DENIES FURTHER NEEDS. CALL LIGHT IN REACH.
--- NOTE | 2021-01-11 00:33 | NUR ---
PT SITTING UP IN BED UPON ENTERING ROOM. REPORTS DIFFICULTY SLEEPING DUE TO SORE BACK. OFFERED PRN FOR PAIN OR ICE/HEAT PACK. PT REFUSED. PT DENIES CHEST PAIN OR SOB. SpO2 100% ON 2L/NC. RESPIRATIONS EVEN. CHEST TUBE NOTED TO HAVE INCREASED DRAINAGE IN TUBING. HEIMLICH VALVE INTACT. WILL CONTINUE TO MONITOR.
--- NOTE | 2021-01-11 02:15 | NUR ---
PT RESTING WITH EYES CLOSED. AWAKENS EASILY WHEN ENTERING ROOM. DENIES CHEST PAIN OR SOB. RESPIRATIONS EVEN. SpO2 98-100% ON 2L/NC. INCREASED DRAINAGE NOTED IN CHEST TUBE. PT IN NO DISTRESS AT THIS TIME.
--- NOTE | 2021-01-11 03:44 | NUR ---
CALL LIGHT ANSWERED. PT REPORTS CONCERNS OF INCREASED DRAINAGE IN CHEST TUBE. PT IN NO DISTRESS. DENIES CHEST PAIN OR SOB. LUNGS SOUND CLEAR. FIELD CROP FARMER IN ROOM WITH THIS RN TO ASSESS CHEST TUBE AND PT AND TO PROVIDE REASSURANCE. PT RECEPTIVE. SpO2 98% ON 2L/NC. HR 60'S-70'S. HOB ELEVATED. PT DENIES FURTHER NEEDS AT THIS TIME.
--- NOTE | 2021-01-11 05:04 | NUR ---
TELE BATTERY REPLACED. CHEST TUBE ASSESSMENT UNCHANGED. PT IN NO DISTRESS. DENIES SOB OR CHEST PAIN. SpO2 100% ON 2L/NC. BLOOD PRESSURE ELEVATED. PT ASYMPTOMATIC. FRESH WATER PROVIDED. NO FURTHER NEEDS. CALL LIGHT IN REACH.
--- NOTE | 2021-01-11 10:40 | NUR ---
DR MONTANO IN TO SEE PT DRAINS SEROUS FLUID FROM CHEST TUBING, WELL TOLERATED BY PT. ALL QUESTIONS ANSWERED AND PLANS GOING FORWARD DISCUSSED. PT VERBALIZES HER AGREEMENT AND UNDERSTANDING OF THIS PLAN.
--- NOTE | 2021-01-11 15:21 | NUR ---
Spoke with María Elena and she plans on dc tomorrow. Has home 02 and daughter will bring a tank to transport to home. Denies other needs.
--- NOTE | 2021-01-11 18:22 | NUR ---
PT SITTING UP ON BED AGREES SHE FEELS WELL. VALVE APPEARS TO BE WORKING APPROPRIATELY BLOWING AIR WITH HER COUGH, NO COLLECTION OF FLUID PRESENT. PT DENIES DISCOMFORTS OR NEEDS OF
--- NOTE | 2021-01-11 19:26 | NUR ---
REPORT RECEIEVED FROM DAY SHIFT RN. PT LYING IN BED ALERT AND ORIENTED. DENIES NEEDS. WHITE BOARD UPDATED. CALL LIGHT IN REACH.
--- NOTE | 2021-01-11 21:45 | NUR ---
EVENING ASSESSMENT COMPLETE. SpO2 98-100% ON 2L/NC. RESPIRATIONS EVEN. PT DENIES CHEST PAIN OR SOB. LUNGS CLEAR IN ALL [place]. CHEST TUBE TO HEIMLICH VALVE. DISTAL END FREE FROM OCCLUSION. NO DRAINAGE NOTED. DRESSING INTACT. FRESH WATER PROVIDED. PT DENIES QUESTIONS OR CONCERNS. CALL LIGHT IN REACH.
--- NOTE | 2021-01-12 02:25 | NUR ---
PT RESTING IN BED WITH EYES CLOESD. RESPIRATIONS EVEN. SpO2 99% ON 2L/NC. HR 70'S.
--- NOTE | 2021-01-12 02:43 | NUR ---
CALL LIGHT ANSWERED. ICE WATER PROVIDED PER REQUEST. PT DENIES CHEST PAIN OR SOB. SCANT AMOUNT OF SEROUS DRAINAGE FROM HEIMLICH VALVE NOTED. NO FURTHER NEEDS AT THIS TIME. CALL LIGHT IN REACH.
--- NOTE | 2021-01-12 06:42 | NUR ---
VS AND I&O COMPLETE. PT DENIES CHEST PAIN OR SOB. REPORTS RIGHT SIDE CHEST TUBE INCISIONAL PAIN 4/10 BUT DECLINES PRN FOR PAIN. CHEST TUBE TO HEIMLICH VALVE. NO DRAINAGE NOTED. FRESH ICE WATER PROVIDED. PT DENIES FURTHER NEEDS. CALL LIGHT IN REACH.
--- NOTE | 2021-01-12 07:34 | NUR ---
Patient awake resting in bed, no distress, respirations even and non labored. Heimlich valve to right chest wall intact, patent with small amount of serous drainage noted. Patient denies chest pain and shortness of breath.
--- NOTE | 2021-01-12 09:01 | NUR ---
Patient resting in bed, respirations even and non labored. Patient has no notable distress. Personal supplies and call light within reach.
--- NOTE | 2021-01-12 09:52 | NUR ---
Dr. Emmanuel in to see patient.
--- NOTE | 2021-01-12 10:13 | NUR ---
PT PROVIDED WITH WARM BED BATH CLOTHS AND WARM BLANKETS TO PERFORM INDEPENDENT BED BATH. FRESH ICE WATER GIVEN. CALL LIGHT WITHIN REACH. NO FURTHER NEEDS AT THIS TIME.
--- NOTE | 2021-01-12 11:33 | NUR ---
Patient resting in bed, no distress. Patient continues on 2L of oxygen pre nc, respirations even and non labored. Heimlich valve intact with small amount of serous drainage noted. Patient declining medication for elevated bp and pain. Patient reports pain is tolerable at this time. No current needs. Personal supplies and call light within reach. Sp02 is 96% at this time.
--- NOTE | 2021-01-12 12:20 | NUR ---
Spoke with pt and she is unsure if she will be able to dc today. She is awaiting Dr. Emmanuel to finish surgery to update her. Saw Dr. Emmanuel in the [facility] and pt will not dc today as PTX is larger.
--- NOTE | 2021-01-12 14:26 | NUR ---
Patient resting in bed, no notable distress. Patient noted to be back on pleural vac in which is to wall suction at 80mmgh. Patient is tolerating well. Sp02 97%.
--- NOTE | 2021-01-12 14:53 | NUR ---
In to see patient. Patient sitting up watching tv, no distress. IV site flushes at this time. Patient denies pain and declined blood pressure medication for recent elevated bp. Patient denies needs. Fresh water at bedside.
--- NOTE | 2021-01-12 16:28 | NUR ---
Patient declining blood pressure medication.
--- NOTE | 2021-01-12 18:26 | NUR ---
Patient sitting up on side of bed writing, no distress. Tele battery changed. Patient denies sob at this time. Patient's chest tube to wall suction at 80. Patient has no needs. 50ml output noted to pleaural vac for this shift.
--- NOTE | 2021-01-12 19:30 | NUR ---
SHIFT REPORT RECEIVED FROM NEY TOLBERT. PT RESTING IN BED. WALL SUCTION 85 AND CHAMBER SUCTION 35. PT DENIES PAIN. ICE WATER PROVIDED. NO OTHER NEEDS. CALL LIGHT IN REACH.
--- NOTE | 2021-01-12 20:06 | NUR ---
ASSESSMENT COMPLETED. GCS 15, A&O X4. RUL IS CLEAR AND DIM, ALL OTHER LOBES CLEAR. NC @ 2L. HEART TONES REGULAR. ABD SOFT, NONTENDER, BOWEL TONES ACTIVE. CHEST TUBE WNL. WALL SUCTION 85 AND CHAMBER SUCTION 35. DEVICE HAS BUBBLING WHEN PT COUGHS. PT REPORTS OCCASION COUGH WITH SMALL AMOUNT OF YELLOW SPUTUM. CMS INTACT. IV WNL. CDI, FLUSHED WELL. PT BP ELEVATED. PT DECLINES MEDS. EDUCATION PROVIDED CONCERNING HYPERTENSION AND RISK, PT STILL DECLINES INTERVENTION FOR ELEVATED BP. HEAT PACK PROVIDED FOR "PINCH" IN RIGHT SHOULDER. NO OTHER NEEDS. CALL LIGHT IN REACH.
--- NOTE | 2021-01-13 00:02 | NUR ---
PT RESTING IN BED. SPO2 100 ON 2L NC. CALL LIGHT IN REACH.
--- NOTE | 2021-01-13 02:00 | NUR ---
pt resting in bed. spo2 98% on 2l nc. call light in reach.
--- NOTE | 2021-01-13 04:15 | NUR ---
PT RESTING IN BED. SPO2 98% ON 2L NC. CALL LIGHT IN REACH.
--- NOTE | 2021-01-13 06:49 | NUR ---
ASSESSMENT, VS AND I&O COMPLETED. PT HAD 15ML SS OUTPUT. LUNGS CLEAR AND DIM IN RIGHT UPPER LOBE, CLEAR IN ALL OTHER LOBES. IV WNL. CHEST TUBE CDI, AIR BUBBLE SEEN IN CHAMBER WITH COUGHING. WALL SUCTION 85 AND COLLECTION DEVICE 35. PT DENIES PAIN OR SOB AT THIS TIME. ICE WATER PROVIDED. NC @ 2L. NO OTHER NEEDS. CALL LIGHT IN REACH.
--- NOTE | 2021-01-13 09:30 | NUR ---
REPORT RECEIVED FROM NIGHT RN AND PT. CARE RESUMED. PT. IS ALERT, ORIENTED AND EATING BREAKFAST AT EOB. SHE DENIES PAIN. RUL OF LUNG DIM. O2 SAT IS 99% ON 2L NC. CHEST TUBE DRAINAGE CONTAINER SHOWS FREQUENT BUBBLING AND IS CONNECTED TO WALL SUCTION . PT. DENIES SOB. DRESSING AT CHEST TUBE INSERTION SITE IS C.D.I. CHARGE NURSE AND ELECTRICAL PARTS RECONDITIONER ASSESSED CHEST TUBE WELL. IV SITE WNL AND FLUSHES. DISCUSSED POC AND CHEST TUBE. PT. LEFT RESTING WITH CALL LIGHT IN REACH.
--- NOTE | 2021-01-13 09:42 | NUR ---
Patient refused AM Care with the warm wash cloth.
--- NOTE | 2021-01-13 10:31 | NUR ---
Vitals, I&Os are complete. Patient requested ice water and that will be retrieved for her.
--- NOTE | 2021-01-13 12:05 | NUR ---
ROUNDING ON PT. SHE DENIES PAIN. SHE STATES SHE HAS NOT ORDERED LUNCH BECAUSE SHE IS FEELING NAUSEOUS. SHE REFUSES ANTIEMETIC MEDS. WILL CONTINUE TO MONITOR.
--- NOTE | 2021-01-13 12:51 | NUR ---
in to check on pt. pt sitting up in bed watching tv. pt denies any nausea at this time. pt request fresh ice water. this nusre gave pt fresh ice water. no other concerns or requests at this time. bed rails x 2 up. call light in reach.
--- NOTE | 2021-01-13 14:17 | NUR ---
BP was clarita, RN was in the room. 220/83 BP. 116 MAP. Call light is in reach.
--- NOTE | 2021-01-13 14:52 | NUR ---
Awaiting Dr. Emmanuel's visit for further plan.
--- NOTE | 2021-01-13 17:10 | NUR ---
PT. BROUGHT DINNER. SHE DENIES PAIN OR NEEDS AT THIS TIME. LEFT RESTING ON EOB EATING.
--- NOTE | 2021-01-13 18:06 | NUR ---
Patient recieved ice water. Patient vitals, I&Os are complete.
--- NOTE | 2021-01-13 19:25 | NUR ---
SHIFT REPORT RECEIVED FROM TRICE TOLBERT. PT RESTING IN BED. WALL SUCTION AT 85 AND COLLECTION DEVICE AT 35. PT DENIES PAIN AT THIS TIME. CALL LIGHT IN REACH.
--- NOTE | 2021-01-13 20:52 | NUR ---
ASSESSMENT, VS AND I&O COMPLETED. GCS 15, A&O X4. LUNGS CLEAR IN ALL LOBES, SLIGHTLY DIM IN UPPER RIGHT LOBE. CHEST TUBE 85 ON WALL SUCTION AND 35 AT COLLECTION DEVICE. HEART TONES REGULAR. ELEVATED BP NOTED, MEDS OFFERED, PT DECLINES, EDUCATION PROVIDED OF HYPERTENSION RISKS, PT VERBALIZES UNDERSTANDING. ABD SOFT, NONTENDER, BOWEL TONES ACTIVE. CMS INTACT. CHEST TUBE SITE DRESSING WNL, CDI. SS OUTPUT IN COLLECTION CHAMBER. IV WNL, CDI, FLUSHED WELL. ICE WATER PROVIDED. NO OTHER NEEDS. CALL LIGHT IN REACH.
--- NOTE | 2021-01-14 00:06 | NUR ---
PT RESTING IN BED. SPO2 100% ON 2L NC. CALL LIGHT IN REACH.
--- NOTE | 2021-01-14 02:13 | NUR ---
PT RESTING IN BED. SPO2 100% ON 2L NC. CALL LIGHT IN REACH.
--- NOTE | 2021-01-14 04:00 | NUR ---
PT RESTING IN BED. NC @ 2L. SPO2 98%. CALL LIGHT IN REACH.
--- NOTE | 2021-01-14 06:25 | NUR ---
ASSESSMENT, VS AND I&O COMPLETED. RUL CLEAR AND DIM, ALL OTHER LOBES CLEAR. PT REPORTS 06/12, DENIES NEED FOR PAIN MED. BP ELEVATED, PT DECLINES MEDS. CHEST TUBE SITE WNL. WALL SUCTION 85, COLLECTION DEVICE @ 35. 5ML SS OUTPUT IN COLLECTION CHAMBER. PT DENIES SOB. NC @ 2L. IV WNL. ICE WATER PROVIDED. NO OTHER NEEDS. CALL LIGHT IN REACH.
--- NOTE | 2021-01-14 07:20 | NUR ---
IN TO CHECK ON PT,AM ASSESSMENT DUE. PT DENIES PAIN AT THIS TIME. WALL SUCTION AT 85 AND CHEST TUBE SUCTION SET AT 35. NO BUBBLINGING OBSERVED IN WATER CHANMBER. PT PLEASANT. PT SITTING UP IN BED WATCHING TV AT THIS TIME. DRESISNG TO RIGHT SIDE CHEST TUBE INSERTION SITE C/D/I. NO CREPITUS PALPATED NOTED AT THIS TIME. LUNGS CTA THROUGHOUT. PT SATURATION REMIANS IN THE 90'S ON 2LNC. NO OTHER COMPLAINTS, CONCSERNS, OR NEEDS AT THIS TIME. BED RAILS X 2 UP. CALL LIGHT IN REACH.
--- NOTE | 2021-01-14 10:06 | NUR ---
198/81 BP. 106 MAP. RN will be notified. Call light is in reach.
--- NOTE | 2021-01-14 10:50 | NUR ---
No change in plan for dc at this time.
--- NOTE | 2021-01-14 11:52 | NUR ---
PATIENT EATING WELL, 100% OF MEALS. SHE IS ON A REGULAR DIET. NURSING STAFF ASSISTING IN GETTING MEAL ORDERS FOR PATIENT THE PATIENT IS ON ISOLATION PRECAUTIONS. NO NUTRITION INTERVENTION AT THIS TIME. WILL CONTINUE TO MONITOR.
--- NOTE | 2021-01-14 11:58 | NUR ---
in to check on pt. pt sitting on edge of bed withlegs dangling and watching tv. pt pleasant. fresh ice water and hot water for tea given. no other concenrns or requests at this time. bed rails times 2 up, call light in reach.
--- NOTE | 2021-01-14 12:06 | NUR ---
in to check on pt, pt sitting on side on bed wathcing tv. james CHARLES in to take pt VS. pt pleasant and cooperative with staff at this itme. no concerns or requests at this time. bed rails x 2 up. call light in reach.
--- NOTE | 2021-01-14 12:20 | NUR ---
in to check on pt. pt pleasant, sitting quietly on bed watching tv. lunch taken into pt. no other request or concerns at this itme. call light in reach.
--- NOTE | 2021-01-14 14:10 | NUR ---
PT. USED CALL LIGHT APPROPRIATELY TO REPORT SUDDEN "PINCHING" 10/10 PAIN AT RIGHT UPPER BACK. LUNG SOUNDS REMAIN UNCHANGED. O2 SAT IS 99% ON 2L NC. RR IS 23, BP 236/85. MD CALLED AND MESSAGE LEFT. WILL CONTINUE TO MONITOR.
--- NOTE | 2021-01-14 14:26 | NUR ---
Patient has no requests at this time. Call light is in reach.
--- NOTE | 2021-01-14 14:26 | NUR ---
in to check on pt, pt laying in bed. MELVIN Erickson in room with pt at this itme. pt reports to this nurse no further pain or spasm, "the pain has gone away." pt reports she is "tolerating new mechanism Dr. Solitario put in well so far." no sob noted. no oother cocners or requests at this time. call light in reach.
--- NOTE | 2021-01-14 15:44 | NUR ---
ROUNDING ON PT. SHE REPORTS PAIN HAS RESOLVED AND SHE FEELS "MUCH BETTER". 02 SAT IS 98% ON 2L NC. BROUGHT FRESH ICE WATER. LEFT RESTING WITH CALL LIGHT IN REACH.
--- NOTE | 2021-01-14 16:30 | NUR ---
CALL MADE TO DR MONTANO WITH UPDATE ON PT. PT UP TO BATHROOM EXPERIENCED SHARP PINCHING PAIN REPORTED 12/12, VSS. CHEST X-RAY RESULTS AVAILABLE. PROVIDER TO UPDATE PT SHORTLY.
[2021-01-14] MEDS ORDERED: ACETAMINOPHEN500 MG PO (17:23)
--- NOTE | 2021-01-14 18:03 | NUR ---
in to see pt. this nurse discussed pt discharge instructions with pt. pt verbalized understanding. no additional questions or concers at this itme. IV removed, tip intact. no onter requests at this itme. pt to be picked up shortly by jim durán. call light in reach.
--- NOTE | 2021-01-14 18:40 | NUR ---
ANNA SHEETS ARRIVED TO [facility] FOR DISCHARGE. PT LEFT WITH ALL BELONGIONGS. ACCOMPANIED TO [facility] VIA BY PARVIZ CHARLES. NO ADDTIOANL QUESTIONS REGARDING DISCHRGE INSTRUCTIONS.
--- NOTE | 2021-01-16 15:07 | DS ---
[facility] [address], [place] [address] Signed ADMISSION DATE: 01/03/2021 DISCHARGE DATE: 01/14/2021 REASON FOR ADMISSION: This 70-year-old white woman has chronic lung disease including infiltrative and bullous disease of long standing. She has been on home oxygen between 2 and 3 L continuously for the past 11 years. 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 The patient presented to the emergency room and was evaluated by Dr. Ely with complaints of shortness of breath and epigastric pain for the previous 3 days. She has a sensation of a lump in the throat as well. Evaluation in the emergency room showed her to have a sizable pneumothorax on the right side --50% in size. She had no evidence of tension pneumothorax. She underwent a 10-Mongolian chest tube placement by me anticipating further inpatient care. PERTINENT PHYSICAL EXAMINATION: GENERAL: Showed a well-developed, well-nourished white woman, who looked to be in no significant distress. NECK: She had no jugular venous distention. The trachea is midline. LUNGS: She had no significant tachypnea. O2 saturation on 3 L of oxygen was 96%. The remaining examination was normal. EXTREMITIES: There was no evidence of clubbing, cyanosis, or edema of her extremities. HOSPITAL COURSE: The patient was given a small chest tube on the right side by me in the emergency room; this showed expansion of the lung largely; there remained a small apical pneumothorax. The patient has complete aversion to essentially any medications at all and this is a long-standing feature. She has general disdain for most medications and vaccinations of any type. She refused pain medications and covid testing as well. She was noted to have significant hypertension for which she refused any intervention whatsoever and she says that her hypertension is well-known to her. Other providers have attempted to control of her hypertension as well. Her chest x-ray with the small chest tube showed an initial good expansion of the lung, but then increasing worsening of the pneumothorax and evaluation of the tube, which was medially directed showed it had been plugged with fibrinous material. On that basis,the tube was replaced with a larger chest tube 20-Mongolian in size at the bedside; she did Electronically Signed By: MARE MONTANO MD 01/16/21 1507 PATIENT NAME: MARJORIE MUSTAFA DISCHARGE SUMMARY DATE OF : 48 REPORT #: [id number] PHYSICIAN: MARE MONTANO MD PCP: PATRICIA PFEIFFER MD REPORT IS CONFIDENTIAL AND NOT TO BE RELEASED WITHOUT AUTHORIZATION [address] [address] Signed agree to intravenous Versed, which was helpful in the bedside placement of the tube. This tube was directed somewhat transversely and although initially functional became less functional and showed episodic air leak. On January 04, she did agree to intravenous sedation in the operating room setting and a right 32-Mongolian straight chest tube was placed directed superiorly. This did show a more obvious air leak with deep respirations and with cough, but did allow for good withdrawal of fluid from the pleural space and expansion of the lung. The patient was subjectively not short of breath. The patient was covered in my absence from January 05 to January [address] Laureano and his attempts at placing the patient to water seal were met with some increase of the pneumothorax and episodic air leak. Upon my return she was noted to have a very rare and episodic air leak. A trial at placement of a Heimlich valve was undertaken. The pneumothorax was very small at the apex. The Heimlich valve was well tolerated but slight increase in the pneumothorax was noted and so she was replaced back to pleur evac device with additional suction to 35 to 40 cm, which did seem to help improve lung expansion. She continued to have an episodic air leak, worse with coughing, but never continuous or "blowing." Consideration was made( given the prolonged nature of her hospitalization) for operative intervention. The patient is markedly averse to such an approach and admittedly her situation is problematic. A CT scan had been performed following the 2nd chest tube placement, which showed her to have significant interstitial disease consistent with her chest x-ray that had been obtained, but also extensive and multiple bilateral blebs. Although complete expansion of the lung within the pleural space would be most desired to allow for resolution of any bleb related air leak, the apical pneumothorax remains now was as only a cm or less in size. She was ultimately transitioned back to a streamlined Heimlich valve and x-ray performed several hours after its placement showed good expansion of the lung with minimal tiny apical pneumothorax. Mindful of the possible need for thoracoscopic blebectomy and pleurodesis (or other method) outpatient attempt at continued pleural space drainage with Heimlich valve and the 32-Mongolian chest tube was agreed upon by the patient. The patient is thus discharged with atrium pleural valve in place with noted episodic air leak through it. The patient will continue at home on 2 L nasal cannula oxygen as needed and will avoid going to altitude for the time being. We will plan to see her back next week to review a chest x-ray . If she should note cessation of the air leak and clinical evidence showing no ongoing air leak, the tube can be pulled. There Electronically Signed By: MARE MONTANO MD 01/16/21 1507 PATIENT NAME: MARJORIE MUSTAFA DISCHARGE SUMMARY DATE OF : 48 REPORT #: [id number] PHYSICIAN: MARE MONTANO MD PCP: PATRICIA PFEIFFER MD REPORT IS CONFIDENTIAL AND NOT TO BE RELEASED WITHOUT AUTHORIZATION [facility] [address] [place], [place] [address] Signed remains a reasonably high chance that she will need a thoracoscopic remedy to this problem. However, we are mindful of her underlying pulmonary disease and with certainty that the situation could be made worse with extensive bleb disease that she has and thus in nonoperative approach, it is preferred if feasible. DISCHARGE MEDICATIONS: Include her own supplements that she takes including astragalus root powder, vitamin D3, garlic tablet, and vitamin E. The patient rejects any notion of medication for hypertension control. Her blood pressure has variably been from 198/81 to as high as 235/85. The patient fully understands my concerns regarding her blood pressure in particular for stroke or congestive heart failure or other complications of excessive hypertension. She understands this fully and yet still refuses any medical measures for hypertension control. DISCHARGE DIAGNOSES: 1. Right-sided spontaneous pneumothorax with persistent air leak. 2. History of longstanding bilateral infiltrative and bullous disease of lung without history of smoking, diagnosis uncertain. 3. Significant hypertension. 4. 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 (patient report). Additionally noted is the patient refused any COVID testing during the course of her evaluation in the emergency room and thereafter. She obviously also refused COVID vaccination. On that basis, she was kept per protocol of the hospital in room isolation. Though her chest x-ray would be suggestive of COVID infection in some ways it is a long-standing chronic problem and she showed no other symptoms of COVID disease during the course of her hospitalization. MD TERESA Lilly/MISTYL /[id number] Electronically Signed By: MARE MONTANO MD 01/16/21 1507 PATIENT NAME: MARJORIE MUSTAFA DISCHARGE SUMMARY DATE OF : 48 REPORT #: [id number] PHYSICIAN: MARE MONTANO MD PCP: PATRICIA PFEIFFER MD REPORT IS CONFIDENTIAL AND NOT TO BE RELEASED WITHOUT AUTHORIZATION [facility] [address] [facility] [place] [address] Signed cc: MD Patricia Garcia MD [facility] Copies: JEREMY LAUREANO MD ~ Electronically Signed By: MARE MONTANO MD 01/16/21 1507 PATIENT NAME: [facility] DISCHARGE SUMMARY DATE OF : 48 REPORT #: [id number] PHYSICIAN: MARE MONTANO MD PCP: PATRICIA PFEIFFER MD REPORT IS CONFIDENTIAL AND NOT TO BE RELEASED WITHOUT AUTHORIZATION
== END 2021-01-14 18:46 | disposition home or self-care (01) | DRG 201 ==
LOC: ED 08:49 → MS 08:51
PROVIDERS: ADMIT Surgery; ATTEND Surgery
PROC: 0W9930Z Drainage of Right Pleural Cavity with Drainage Device, Percutaneous Approach (ICD-10-PCS; principal; 2020-12-31)
PROC: 0W9930Z Drainage of Right Pleural Cavity with Drainage Device, Percutaneous Approach (ICD-10-PCS; 2021-01-02)
PROC: 0W9930Z Drainage of Right Pleural Cavity with Drainage Device, Percutaneous Approach (ICD-10-PCS; 2021-01-04)
DX: J93.83 Other pneumothorax (principal); I10 Essential (primary) hypertension; Z88.5 Allergy status to narcotic agent; Z88.1 Allergy status to other antibiotic agents; Z98.890 Other specified postprocedural states; Z90.710 Acquired absence of both cervix and uterus; Z79.899 Other long term (current) drug therapy; Z88.8 Allergy status to other drugs, medicaments and biological substances; J43.9 Emphysema, unspecified; J84.10 Pulmonary fibrosis, unspecified; Z88.6 Allergy status to analgesic agent; L13.9 Bullous disorder, unspecified
CPT/HCPCS: 00520; 71045; 71250; 80053; 83690; 83880; 84484; 85025; 93005; 93010; 94760; 94762; 96374; 99285-25; G0378; J0131; J2001; J2250; J2704; J7121

== ENCOUNTER 2021-02-05 09:26 | Inpatient (IN) | payer OTHER ==
[~2021-02-05] VITALS: Ht 167.6 cm; Wt 58.0 kg
[~2021-02-05 09:26] MED LIST changes: +ACETAMINOPHEN500 MG PO
--- NOTE | 2021-02-05 14:57 | NUR ---
nupur from surgery here for pt.
--- NOTE | 2021-02-05 15:55 | NUR ---
PT ADMITTED FROM ER DUE TO RECURRENT RIGHT PNEUMOTHORAX, DR MONTANO PATIENT PLAN FOR OR FOR CHEST TUBE PLACEMENT, ON 2L NC, CHRONIC , COWART, TELE ON CPOC ON. SURGICAL WIPE DOWN DONE, A&OX4, FEELS SOB AND PAIN BUT REFUSES ANY MEDICATIONS AT THE MOMENT
--- NOTE | 2021-02-05 16:36 | NUR ---
MED REC COMPLETE
[2021-02-05] MEDS ORDERED: VITAMIN E400 UNI2 PO (16:37)
[2021-02-05] MEDS ORDERED: GARLIC1 EAC1 PO (16:37)
[2021-02-05] MEDS ORDERED: ASTRAGALUS ROOT1 GM MISC (16:37)
[2021-02-05] MEDS ORDERED: VITAMIN D350 MCG PO (16:37)
--- NOTE | 2021-02-05 17:58 | NUR ---
02/05/21 1758 Dominguez,Frida Lopez PATIENT C/O PAIN. GRABS AT CHEST TUBE SITE WHEN COUGHING. OFFERED PAIN MEDICATION. PATIENT DECLINED. PATIENT FINALLY WILLING TO TAKE PO TYLENOL.
--- NOTE | 2021-02-05 18:20 | NUR ---
pt back from chest tube placement patient in alot of pain refusing pain meds at the moment, 32f right chest tube in place, on 5l nc 100% site dry and intact.
--- NOTE | 2021-02-05 18:37 | NUR ---
ASSISTED PT IN AMBULATING DOWN THE ANTONY AND AROUND THE NURSES STATIONS. PT SEEMED TO BE IN PAIN BY THE END OF THE SECOND (LAST) LAP, BUT WAS STEADY ON FEET. CALL LIGHT WITHIN REACH, NO FURTHER NEEDS AT THIS TIME. DAUGHTER IN ROOM
--- NOTE | 2021-02-05 18:52 | NUR ---
RN IN ROOM TO PROVIDE WATER FOR PATIENT ON 100% ON THE 5L TITRATING TO 3L NC, PATIENT IN SEVERE PAIN DOES NOT WANT TO TAKE ANY MEDICATIONS
--- NOTE | 2021-02-05 19:00 | NUR ---
DR MONTANO AWARE OF ELEVATED BP, DR ON THE FLOOR AND UPDATED THAT BP IS 220/87
--- NOTE | 2021-02-05 19:39 | NUR ---
REPORT RECEIVED FROM DAY SHIFT RN. PT LYING IN BED ALERT AND ORIENTED. RESPIRATOINS EVEN. CHEST TUBE TO WALL SUCTION. O2 3L/NC IN PLACE. SpO2 99%. PT DENIES NEEDS AT THIS TIME. WHITE BOARD UPDATED. CALL LIGHT IN REACH.
--- NOTE | 2021-02-05 20:32 | NUR ---
VERBAL ORDER RECEIVED TO DC IVF FROM DR. MONTANO. VERIFIED WITH READ BACK.
--- NOTE | 2021-02-05 22:26 | NUR ---
EVENING ASSESSMENT COMPLETE. PT REPORTS RIGHT SIDE CHEST TUBE INSERTION SITE PAIN 11/12. PT DOES NOT WANT PRN FOR PAIN OR SCHEDULED TYLENOL AT THIS TIME. SBA TO BSC TO VOID. PT ABLE TO DO OWN JOSH CARE. BACK TO BED, ANASTASIA FAIR. SATS REMAINED >90% ON 2L/NC WITH ACTIVITY. CHEST TUBE ON RIGHT SIDE IN PLACE TO LCWS. SCANT AMOUNT SEROSANG DRAINAGE IN TUBING. DRESSING TO RIGHT SIDE INTACT WITH SCANT AMOUNT DRAINAGE. PT DENIES SOB. IVF DC'D PER MD ORDER. PT REQUESTING PIV TO BE DC'D. PER EARLIER DISCUSSION WITH DR. CHARMAINE QUINN DC'D WNL. TIP INTACT. ASSISTED PT TO REPOSITION IN BED. WARM COMPRESS PROVIDED FOR COMFORT. PT DENIES FURTHER NEEDS. CALL LIGHT IN REACH.
--- NOTE | 2021-02-06 00:09 | NUR ---
PT RESTING IN BED WITH EYES CLOSED. HOB ELEVATED. RESPIRATIONS EVEN. SpO2 99% ON 2L/NC. HR 70'S.
--- NOTE | 2021-02-06 02:22 | NUR ---
VS AND I&O COMPLETE. PT UP TO BSC WITH SBA TO VOID. GAIT STEADY. BACK TO BED, ANASTASIA FAIR. PT REPORTS RIGHT SIDE PAIN /. PT AGREEABLE TO TAKE TYLENOL FOR PAIN, ADMINISTERED PER EMAR. RIGHT CHEST TUBE IN PLACE, UNCHANGED FROM PREVIOUS ASSESSMENT. SpO2 100% ON 2L/NC. PT DENIES SOB. WARM BLANKET AND FRESH ICE WATER PROVIDED. NO FURTHER NEEDS AT THIS TIME.
--- NOTE | 2021-02-06 06:48 | NUR ---
VS AND I&O COMPLETE. PT REPORTS RIGHT SIDE PAIN IMPROVED TO 9/10 AFTER TYLENOL. REFUSES PRN FOR PAIN AT THIS TIME. DENIES SOB. SpO2 100% ON 2L/NC. RESPIRATIONS EVEN. 25 ML SEROSANG DRAINAGE IN CHEST TUBE. BP REMAINS ELEVATED. MD AWARE. BREAKFAST ORDERED. PT DENIES FURTHER NEEDS. CALL LIGHT IN REACH.
--- NOTE | 2021-02-06 08:22 | NUR ---
Patient assisted to bedside commode to void, uriel fair. Patient reports 9/10 right chest tube insertion site pain. Patient declined pain medication at this time. Chest tube to LCWS @ 80mmhg. Chest tube atrium suction is to -20. Slight bubbling noted in chamber, good tidaling noted with inspiration/expiration as well. Patient remains on 2L oxygen per nc, respirations non labored. Patient appears very painful. Breakfast to patient. Chest tube dressing is CDI at this time. Encouraged patient to call staff if she has needs or would like pain medication. Patient verbalized she will call for help if needed. .
--- NOTE | 2021-02-06 08:30 | NUR ---
IN TO SEE PT TO ANSWER CALL LIGHT. PT SITTING UP IN BED. ASSISTED PT TO THE BSC, THEN BACK TO BED. PT LUNGS WITH CRACKLES TO RIGHT UPPER LOBER AND DIMINSHED IN THE RIGHT BASE, OTHERWISE CLEAR THROUGHOUT. NO SOB NOTED. NO CREPITUS NOTES. CHEST TUBE INTACT. DRESSING WITH SS DRAINAGE, INTACT. INTERMITTENT BUBBLING NOTED WITH INHALATION. FLUCTION NOTED IN CHAMBER. CHEST TUBE SUCTION AT -20 AND WALL SUCTION AT 80. PT REPORTS PAIN AND DISCOMFORT 8/10TO RIGHT CHEST R/T CHEST TUBE. PT OFFERED PRN TYLNOL, PT REFUSED. PT OXYGEN AT 100% ON 2LNC. PT ALERT AND ORIENTED X 4. PLEASNAT AND COOPERATIVE WITH STAFF AND CARES. PT BP 203/89 (112),THIS IS WITHIN PT BASELILNE. NO OTHER NEEDS OR REQUESTS AT THIS TIME. BEDRAILS X 2 UP. CALL LIGHT IN REACH.
--- NOTE | 2021-02-06 10:50 | NUR ---
DR MONTANO NOTIFED OF ELEVATED BP. NO NEW ORDERS AT THIS TIME.
--- NOTE | 2021-02-06 10:51 | NUR ---
Patient sitting up in bed, appears very uncomfortable. Patient reports she is in pain where the chest tube is inserted. Offered patient pain medication and suggested something for her high blood pressure-patient continues to decline medication. Patient remains on 2L oxygen per nc.
--- NOTE | 2021-02-06 11:20 | OR ---
[facility] [address], [place] [address] Signed DATE OF OPERATION: 02/05/2021 SURGEON: Mare Montano MD PREOPERATIVE DIAGNOSES: 1. Chronic bullous and infiltrative disease, bilateral lungs. 2. Recurrent right pneumothorax. POSTOPERATIVE DIAGNOSES: 1. Chronic bullous and infiltrative disease bilateral lungs. 2. Recurrent right pneumothorax. PROCEDURE: Placement of right 32-Colombian chest tube. ANESTHESIA: Local with monitored anesthesia care, Ajay Kilpatrick CRNA, local 10 mL of 0.25% Marcaine with epinephrine. INDICATION: This 70-year-old white woman presented to the emergency room with a recurrent pneumothorax on the right side. The pneumothorax is rather large, certainly 50% or more. She is only mildly symptomatic with this. The patient has chronic lung disease including an infiltrative process bilaterally as well as significant bullous disease. She was discharged on January 13 from the hospital after nearly two weeks of hospitalization for a right-sided pneumothorax which allowed for discharge with a 32-Colombian chest tube and Heimlich valve which was pulled over a week ago, and which was without sign of ongoing air leak or recurrent pneumothorax. Her recurrent pneumothorax today manifest as subtle upper chest pain. The patient has other medical comorbidities, most of which she steadfastly refuses therapy for, specifically hypertension. I have recommended placement of a right chest tube at this time. The patient adamantly opposed to most medications and refused to be treated for her hypertension, but will allow for IV sedation and local anesthetic to place the chest tube at this time. The risk of bleeding, infection, failure of the tube, ongoing air leak, so forth were reviewed in detail. Most notably, it is highly probable she will require thoracoscopic or even open procedure for blebectomy and right-sided pleurodesis. Electronically Signed By: MARE MONTANO MD 02/06/21 1120 PATIENT NAME: MARJORIE MUSTAFA OPERATIVE REPORT DATE OF : 48 REPORT #: [id number] PHYSICIAN: MARE MONTANO MD PCP: PATRICIA PFIEFFER MD REPORT IS CONFIDENTIAL AND NOT TO BE RELEASED WITHOUT AUTHORIZATION [facility] [address], [place] [address] Signed FINDINGS: The patient has chronic cough and did have hypertension as expected. She tolerated the procedure well. The chest tube was placed through approximately the 4th interspace (cephalad to the previous chest tube site) and directed superiorly. A fair amount of air was noted from the pleural space through the Pleur-Evac type device. At conclusion, she does have episodic air leak. A postprocedure chest x-ray is pending. DESCRIPTION OF PROCEDURE: The patient was brought to the operating room and placed in the supine position, given intravenous sedation with propofol infusional technique. The right arm was extended (abducted) and the previous chest tube site was noted to be somewhat inferior in the breast crease to the nipple position. An area cephalad was chosen as appropriate site for chest tube on this occasion. The right chest was prepared with a chlorhexidine solution and draped sterilely. 0.25% Marcaine with epinephrine injected directly over the rib probably 4th intercostal space. Transverse incision was made and electrocautery was used for hemostasis. Using a heavy Terrie clamp, the top of what is likely the 4th rib was dissected free and the pleural space entered. A fair amount of air was withdrawn upon doing so. An index finger was used to explore the pleural space showing no sign of pleural adhesions or blood. There was no purulence. A 32-Colombian straight chest tube was directed superiorly and extended as far as appropriate. It was then secured in place with a 2-0 nylon suture and attached to a Pleur-Evac type device. A fair amount of air was noted in the water chamber, which eventually abated and then became only episodic. The chest tube was secured with pink tape and a gauze dressing and OpSite applied to the puncture site and subsequently pink tape as a two point fixation. She was allowed to emerge from anesthesia, had a fair amount of coughing as per usual and was then taken to recovery room without problem. MD TERESA Lilly/MISTYL /[id number] cc: Dr. Patricia Wilson Electronically Signed By: MARE MONTANO MD 02/06/21 1120 PATIENT NAME: MARJORIE MUSTAFA OPERATIVE REPORT DATE OF : 48 REPORT #: [id number] PHYSICIAN: MARE MONTANO MD PCP: PATRICIA PFEIFFER MD REPORT IS CONFIDENTIAL AND NOT TO BE RELEASED WITHOUT AUTHORIZATION [address] [address] Signed Copies: ~ Electronically Signed By: MARE MONTANO MD 02/06/21 1120 PATIENT NAME[facility] O[facility] RE[facility] DATE OF : 48 REPORT #: [id number] PHYSICIAN: MARE MONTANO MD PCP: PATRICIA PFEIFFER MD REPORT IS CONFIDENTIAL AND NOT TO BE RELEASED WITHOUT AUTHORIZATION
--- NOTE | 2021-02-06 11:20 | HP ---
[facility] [address], [place] [address] Signed ADMISSION DATE: 02/05/2021 REASON FOR ADMISSION: Recurrent right pneumothorax. HISTORY OF PRESENT ILLNESS: This 70-year-old white woman presented to the emergency room with several days of increasing vague right bilateral upper chest discomfort. The patient is well known to me from the past having suffered a right-sided pneumothorax a few weeks ago. She was discharged by me on January 14, 2021, having had nearly two weeks of hospitalization for a sizable right-sided pneumothorax, ultimately discharged to home with a 32-Sinhala chest tube with a Heimlich valve. As an outpatient with observation, the lung fully expanded, the pneumothorax resolved and the tube was removed. The tube was removed more than a week ago and followup chest x-ray immediately showed no sign of recurrent pneumothorax and on Sunday of this week (today is Sunday) again, no pneumothorax. The patient has long-standing chronic lung disease, which includes an infiltrative and bullous type problem of uncertain etiology; she was never a smoker. She has been on home oxygen for at least 8 to 10 years on 2 to 3 L continuous oxygen. The patient has underlying hypertension for which she refuses any therapy despite her relatively significant hypertension from time to time. She is also very much opposed to anything having to do with COVID, COVID screening, COVID testing and COVID vaccination. Indeed, she refused her vaccination previously for further course of her hospitalization. She has had no hemoptysis and she does not feel especially short of breath at this time. PHYSICAL EXAMINATION: She looks reasonably well and comfortable. Her nasal cannula oxygen is in place. Her pulse rate was 81 at presentation, remains 81 now. Her blood pressure is 188/88, previously 208/87. O2 saturation is 97% on 2 L nasal cannula oxygen. Her chest tube site on the right side shows it to continue to heal. Her chest x-ray shows a psppuert-hj-bdjum size right-sided pneumothorax once again. There is no mediastinal shift or sign of cardiovascular compromise. ASSESSMENT: She has developed a recurrent right-sided pneumothorax. I am mindful of her overall social and emotional situation, which is tenuous at best on most occasions. I would recommend replacement of a chest tube at this time, likely with a Pleur-Evac device, but Electronically Signed By: MARE MONTANO MD 02/06/21 1120 PATIENT NAME: MARJORIE MUSTAFA HISTORY AND PHYSICAL DATE OF : 48 REPORT #: [id number] PHYSICIAN: MARE MONTANO MD PCP: BRUCE PFEIFFER MD REPORT IS CONFIDENTIAL AND NOT TO BE RELEASED WITHOUT AUTHORIZATION [facility] [address] [place], [place] [address] Signed she will ultimately need to have thoracoscopy, blebectomy, and pleurodesis probably by mechanical means as this is a recurrent problem and she does have underlying significant pulmonary disease. For today, we will plan to place a chest tube with a Pleur-Evac and possibly convert to Heimlich valve but likely require definitive operation as described. I have discussed all this with her, she understands and agrees. MD TERESA Lilly/MISTYL /[id number] cc: Dr. Fidel Pfeiffer Copies: ~ Electronically Signed By: MARE MONTANO MD 02/06/21 1120 PATIENT NAME: MARJORIE MUSTAFA HISTORY AND PHYSICAL DATE OF : 48 REPORT #: [id number] PHYSICIAN: MARE MONTANO MD PCP: BRUCE PFEIFFER MD REPORT IS CONFIDENTIAL AND NOT TO BE RELEASED WITHOUT AUTHORIZATION
--- NOTE | 2021-02-06 11:45 | NUR ---
In with Dr. Emmanuel to discuss plan of care with patient. Per Dr. Emmanuel, Dr. Manzanares to be consulted regarding blood pressure. Patient receptive to having an IV started.
--- NOTE | 2021-02-06 13:12 | NUR ---
IN TO SEE PT. PT SITTING UP ON THE RIGHT SIDE OF THE BED WITH FEET DANGLING AND FLAT ON THE FLOOR. CASTRO CHARLES IN WITH PT. LUNCH ON BEDISDE TABLE IN FRONT OF PT AT THIS TIME. PT EATING LUNCH. PT DENIES ANY PAIN AT THIS TIME. NO OTHER NEEDS OR CONCERNS AT THIS ITME. CALL LIGHT IN REACH.
--- NOTE | 2021-02-06 14:00 | NUR ---
PT IS IN A MUCH MORE AGREEABLE MOOD TODAY. PT WATCHING TV IN BED. CALL LIGHT WITHIN REACH, NO FURTHER NEEDS AT THIS TIME.
--- NOTE | 2021-02-06 15:11 | NUR ---
IN TO SEE PT. DR. RENDON IN TO ROUND ON PT AND UPDATE PT ON PLAN OF CARE. ASSESSMENT DUE. PT JHOAN PAIN AT THIS ITME. ATRIUM CHEST TUBE DEVICE WITH 12 ML SS DRAINAGE NOTED. WALL SUCTION AT 80 AND ATRIUM DEBICE SUCTION AT -20. FLUCUTAION AND INTERMITTENET BUBBLING NOTED IN WATER CHAMBER NOTED, DR. MONTANO AWARE. MELVIN FLORES IN TO SEE PT, VSS OBTAINED BP REMIANS ELEVATED 256/107, PROVIDER AWARE OF PT HX OF ELEVATED BPS. OXYGEN 98 ON 2LNC. NO SOB NOTED. LUNGS WITH CRACKLES AND DIMINSHED TO RUL, OTHERWISE CLEAR THOUGHOUT. DRESSING INTACT, SS DRAINAGE PRESENT. NO OTHER NEEDS OR CONCERNS AT THIS TIME. PT SITTING UP IN BED WATHCING TV. CALL LIGHT IN REACH.
--- NOTE | 2021-02-06 15:12 | NUR ---
PT SITTING UP IN BED. RN NOTIFIED OF BP. CALL LIGHT WITHIN REACH, NO FURTHER NEEDS AT THIS TIME.
--- NOTE | 2021-02-06 15:54 | NUR ---
BP RETAKEN BY THIS NURSE, BP 264/102. DR. RENDON NOTIFED. WILL RETAKE MANUALLY, NO NEW ORDERS FROM PROVIDER AT THIS TIME.
--- NOTE | 2021-02-06 16:34 | NUR ---
IN TO SEE PT. MEDIUM BM NOTED. PT DECLINED TO HAVE MANUAL BP TAKEN.
--- NOTE | 2021-02-06 17:15 | EKG ---
[facility] [address] [place] [address] Signed Normal sinus rhythm Normal ECG When compared with ECG of 31-DEC-2020 08:58, Nonspecific T wave abnormality now evident in Inferior leads Confirmed by ALLISON RENDON MD ([id number]) on 02/06/2021 5:14:44 PM Electronically Signed By: ALLISON RENDON MD 02/06/21 1715 PATIENT NAME: MARJORIE MUSTAFA Electrocardiogram DATE OF : 48 PHYSICIAN: ALLISON RENDON MD REPORT #: [id number] REPORT IS CONFIDENTIAL AND NOT TO BE RELEASED WITHOUT AUTHORIZATION
--- NOTE | 2021-02-06 17:58 | NUR ---
Patient demanding new IV site to be removed as she reports it is painful and intolerable. Patient declined to allow me to flush site to ensure it is patent. Offered to start a new IV site in a differed location, patient declined. Military Logistics Specialist in to consult and educate. Staff discussed with patient that with her current high blood pressure she is at increased risk for a stroke and if she were to code we would potentially need to start a new IV in her bone for rapid access. Patient reports she is fully aware of her current risks with no IV access. IV removed at this time per patient request. No further needs reported.
--- NOTE | 2021-02-06 18:14 | NUR ---
PT BP REMIANS ELEVATED LAST BP 256/107, DR RENDON NOTIFIED. NO NEW ORDERS. PT REFUSED MANUAL BP TO BE RETAKEN. PT WITH NO IV ACCESS AT BEGINING OF SHIFT, PT AGREED TO HAVE IV PLACED. LATE IN SHIFT PT C/O IT HURTING, PURCHASING ANALYST SPOKE WITH PT REGADING RISKS OF NOT HAVING IV ACCESS. PT UNDERSTANDS RISKS , STILL WANTED IT REMOVED, IV REMOVED PER REQUEST. CT WITH INTERMITTNET BUBBLING IN WATER CHAMBER AND BALL FLUCUATION. DR MONTANO AWARE. 12MLS SS DRAINAGE NOTED. CONTINUES TO DECLINE ANY MEDICATIONS WHEN OFFERED.
--- NOTE | 2021-02-06 18:45 | NUR ---
PT JOURNALING FOR STRESS RELIEF IN AN ATTEMPT TO LOWER BP. CALL LIGHT WITHIN REACH, NO FURTHER NEEDS AT THIS TIME.
--- NOTE | 2021-02-06 19:49 | NUR ---
REPORT RECEIVED FROM DAY SHIFT RN. PT LYING IN BED ALERT AND ORIENTED. RESPIRATIONS EVEN. PT DENIES CHEST PAIN OR SOB. SpO2 100% ON 2L/NC. CHEST TUBE IN PLACE. FRESH WATER PROVIDED. PT DENIES FURTHER NEEDS AT THIS TIME. WHITE BOARD UPDATED. CALL LIGHT IN REACH.
--- NOTE | 2021-02-07 00:30 | NUR ---
PT RESTING IN BED WITH EYES CLOSED. RESPIRATOINS EVEN. HOB ELEVATED. SpO2 100% ON 2L/NC. HR 60'S.
--- NOTE | 2021-02-07 03:04 | NUR ---
PT RESTING IN BED WITH EYES CLOSED. HOB ELEVATED. RESPIRATIONS EVEN. SpO2 100% ON 2L/NC. HR 60'S.
--- NOTE | 2021-02-07 06:44 | NUR ---
PT RESTING WITH EYES CLOSED UPON ENTERING ROOM. AWAKENS EASILY. VS AND I&O OBTAINED. BP ELEVATED. PT DENIES HEADACHE OR BLURRED VISION. PT CONTINUES TO REFUSE TREATMENT FOR HYPERTENSION. DENIES CHEST PAIN OR SOB. SpO2 100% ON 2L/NC. RESPIRATIONS EVEN. CHEST TUBE IN PLACE. 28 ML SEROSANG DRAINAGE THIS SHIFT. DRESSING TO RIGHT SIDE CHEST TUBE INTACT. PT REFUSED SCHEDULED TYLENOL. REPORTS PAIN 2/10 WHICH IS TOLERABLE. FRESH WATER PROVIDED. BREAKFAST ORDERED. NO FURTHER NEEDS. CALL LIGHT IN REACH.
--- NOTE | 2021-02-07 08:45 | NUR ---
Right upper lateral chest tube intact, dressing is CDI. Chest tube patent, tube to 80CWS and -20 on the atrium device. Tidaling noted in chest tube chamber with inspiration/expiration, slight intermittent bubbling noted as well. Patient denies respiratory distress and or chest pain. Patient declining bp meds.
--- NOTE | 2021-02-07 10:23 | NUR ---
PATIENT SITTING UP IN BED, RN IN ROOM TO CHECK MANUAL BLOOD PRESSURE. VITALS AND I&O'S CHARTED. CALL LIGHT IN REACH. NO FURTHER NEEDS AT THIS TIME.
--- NOTE | 2021-02-07 10:23 | NUR ---
HOME BP CUFF HERE PER PT. PATIENT RECEPTIVE TO HAVING BP CHECKED. PT'S SELF CHECK WITH HOME CUFF IS 152/99, THIS RN CHECK WITH PATIENT HOME CUFF-175/100, HOSPITAL MACHINE CUFF CHECK POST THIS RN CHECK AND PATIENT CHECK IS 245/94, P77. PATIENT REPORTS SHE IS IN PAIN, DECLINED MEDICATION. TOLD PT I WOULD LET HER PROVIDER KNOW REGARDING RESULTS.
--- NOTE | 2021-02-07 10:45 | NUR ---
DR. RENDON UPDATED WITH ELEVATED BLOOD PRESSURE READINGS.
--- NOTE | 2021-02-07 11:40 | NUR ---
I was able to meet with Jana this morning to discuss her care and discharge needs. Jana states that she does all of her own personal care, she will have a friend pick her up from the hospital, but beyond that she provides all of her own needs including housework, laundry and shopping. She states that she does not have dificulty obtaining food, medicine (which she states I do not take any prescriptions, but if I needed them I would use [facility]). She also states that she has resources for her heat, utilities, etc. Jana expressed no questions or concerns at this time.
--- NOTE | 2021-02-07 13:27 | NUR ---
PATIENT SITTING UP IN BED. VITALS AND I&O'S CHARTED. BLOOD PRESSURE ON MACHINE IN ROOM IS HIGH. PATIENT WATNED BLOOD PRESSURE SHE MANUALLY TOOK DOCUMENTED, HER BLOOD PRESSURE WAS 172/87. BED BATH SUPPLIES PROVIDED. CALL LIGHT IN REACH. NO FURTHER NEEDS AT THIS TIME.
--- NOTE | 2021-02-07 14:05 | NUR ---
Patient sitting up in bed, no distress. Patient reports she is feeling better this afternoon, tolerable pain reported at insertion site. Patient denies sob and chest pain. Chest tube unchanged, good tidaling noted with inspiration/expiration, slight intermitten bubbling noted in water seal chamber. No current needs at this time. Personal supplies and call light within reach.
--- NOTE | 2021-02-07 14:29 | NUR ---
PT USING BR, WILL CHECK BACK AGAIN
--- NOTE | 2021-02-07 16:44 | NUR ---
Patient awake in bed watching tv, no distress. Chest tube is unchanged, dressing to chest wall is CDI, patent with sarosang drainage noted in tubing, tidaling noted on inspiration/expiration with intermittent bubbling in chest tube water seal. Patient denies respiratory distress, no reported chest pain. Blood pressure continues to be elevated, pt declining medication. No current needs.
--- NOTE | 2021-02-07 18:11 | NUR ---
BP HOME CUFF READIN/94 BP MANUAL: 180-90 BP PER WALL MONITOR: 224/86
--- NOTE | 2021-02-07 18:37 | NUR ---
Dr. Vasquez in to see patient. Plan of care discussed with patient and Dr. Emmanuel at this time. Dr. Emmanuel attached a heimlich valve to end of chest tube at this time. Pleur-evac disconnected by Dr. Emmanuel and left at bedside. Patient tolerated very well, no distress.
--- NOTE | 2021-02-07 19:45 | NUR ---
REPORT RECEIVED FROM DAY SHIFT RN. PT LYING IN BED ALERT AND ORIENTED. DENIES SOB. RESPIRATIONS EVEN. 2L/NC IN PLACE. SpO2 98%. NO NEEDS AT THIS TIME. WHITE BOARD UPDATED. CALL LIGHT IN REACH.
--- NOTE | 2021-02-07 21:45 | NUR ---
EVENING ASSESSMENT COMPLETE. PT REPORTS PAIN IS TOLERABLE AND REFUSES SCHEDULED PAIN MEDICATION. RIGHT SIDE CHEST TUBE TO HEIMLICH VALVE. PT DENIES SOB OR CHEST PAIN. RESPIRATIONS EVEN. 2L/NC IN PLACE. SpO2 99-100% AT REST. BLOOD PRESSURE ASSESSED. PT TOOK OWN BP WITH HOME BP UQFW=739/88 AND 160/98. MANUAL BP BY THIS LP=685/100. HOSPITAL FDPRZAN=472/87. PT DOES NOT BELIEVE THE READING BY THIS RN OR THE HOSPITAL MACHINE TO BE ACCURATE BUT DID NOT WANT ANOTHER RN TO MEASURE BLOOD PRESSURE. EDUCATION PROVIDED REGARDING ACCURATE BP MEASUREMENT. PT REFUSES EDUCATION. PT CONTINUES TO DECLINE TREATMENT FOR HTN. PT DENIES HEADACHE OR BLURRED VISION. FRESH WATER PROVIDED. BSC EMPTIED. PT DENIES QUESTIONS OR CONCERNS. CALL LIGHT IN REACH.
--- NOTE | 2021-02-08 00:31 | NUR ---
PT RESTING IN BED WITH EYES CLOSED. RESPIRATIONS EVEN. HOB ELEAVTED. SpO2 99% ON 2L/NC. HR 60'S.
--- NOTE | 2021-02-08 01:39 | NUR ---
CALL LIGHT ANSWERED. EMPTIED THE HAT WITH 900ML URINE. ICE WATER REFILLED. WHITE BOARD UPDATED. NO OTHER NEEDS AT THIS TIME.
--- NOTE | 2021-02-08 04:14 | NUR ---
PT RESTING IN BED WITH EYES CLOSED. RESPIRATIONS EVEN. HOB ELEVATED. SpO2 99% WITH 2L/NC IN PLACE. HR 60'S.
--- NOTE | 2021-02-08 06:45 | NUR ---
PT REPORTS SHE RESTED WELL. DENIES SOB OR CHEST PAIN. VS AND I&O COMPLETE. PT SELF CHECK WITH HOME BP PPCM=164/82. MANUAL BP BY THIS BD=489/84. HOSPITAL AMZXWAU=520/87. PT REPORTS PAIN 1-2/10 WHICH IS TOLERABLE. NO FURTHER NEEDS AT THIS TIME. CALL LIGHT IN REACH.
--- NOTE | 2021-02-08 09:04 | NUR ---
PT'S HOME BP MONITOR: 142/86, 77 MANUAL HOSPITAL BP: 200/90, 75 WALL MONITOR BP: 227/82, P74
--- NOTE | 2021-02-08 09:51 | NUR ---
PATIENT IN BED RESTING AT THIS TIME. PATIENT HAS BEEN UP TO BATHROOM, IND. VITALS AND I&O'S CHARTED. WANTS BED BATH LATER. CALL LIGHT IN REACH. NO FURTHER NEEDS AT THIS TIME.
--- NOTE | 2021-02-08 09:57 | NUR ---
Patient awake sitting up in bed, no distress. Patient reports 1-2/10 pain level at right chest tube insertion site. Patient denies shortness of breath and or chest pain. Heimlich valve intact to chest tube, working appropriately. Patient reports she slept well last night. Patient denies current needs. Personal supplies and call light within reach.
--- NOTE | 2021-02-08 10:08 | NUR ---
Patient declining pain and or blood pressure medication.
--- NOTE | 2021-02-08 10:15 | NUR ---
Spoke with María Elena as she is a readmission for her history of lung disease and pneumothorax. She denies needs or changes from her last admission. Cont. to plan for discharge to home when cleared medically. She does not have relatives living in the area.
--- NOTE | 2021-02-08 12:16 | NUR ---
ABG order placed per provider's written order under nurse notify. Per Yonathan from [facility], he will call Dr. Emmanuel to discuss pulmonary function test.
--- NOTE | 2021-02-08 14:20 | NUR ---
PATIENT MANUAL SELF BP IS 158/88 NURSING MANUAL BP IS 220/95
--- NOTE | 2021-02-08 14:37 | NUR ---
PATIENT UP TO BATHROOM AND BACK TO BED, IND. VITALS AND I&O'S CHARTED. FRESH ICE WATER GIVEN. PATIENT WILL LET ME KNOW WHEN SHE IS READY FOR BEDBATH. CALL LIGHT IN REACH. NO FURTHER NEEDS AT THIS TIME.
--- NOTE | 2021-02-08 16:43 | NUR ---
Patient resting in bed, eyes closed, respirations even and non labored. Patient remains on 2L oxygen per nc. Patient has no distress at this time. Personal supplies and call light within reach.
--- NOTE | 2021-02-08 17:24 | NUR ---
pt self bp: 164/86 RN bp manual: 185/92, 78 wall machine bp: 240/85, p77
--- NOTE | 2021-02-08 18:45 | NUR ---
PATIENT IN BED RESTING. PATIENT STILL NOT READY FOR BED BATH, ALL SUPPLIES IN ROOM FOR WHEN SHE IS READY. CALL LIGHT IN REACH. NO FURTHER NEEDS AT THIS TIME.
--- NOTE | 2021-02-08 19:51 | NUR ---
REPORT RECEIVED FROM DAY SHIFT RN. PT LYING IN BED ALERT AND ORIENTED. DENIES NEEDS. WHITE BOARD UPDATED. CALL LIGHT IN REACH.
--- NOTE | 2021-02-08 21:54 | NUR ---
EVENING ASSESSMENT COMPLETE. SCHEDULED MEDS ADMINISTERED PER EMAR. PT DENIES PAIN OR SOB. RESPIRATIONS EVEN. RIGHT SIDE CHEST TUBE TO HEIMLICH VALVE. SMALL AMOUNT DRAINAGE NOTED IN CHAMBER. DRESSING INTACT. NO CREPITUS NOTED. 2L/NC IN PLACE. SpO2 99%. PT OWN MANUAL YR=899/98. THIS RN MANUAL MZ=820/94. HOSPITAL MQWQKXY=223/98. PT DENIES SX OF HYPERTENSION. FRESH WATER PROVIDED. NO FURTHER NEEDS. CALL LIGHT IN REACH.
--- NOTE | 2021-02-09 00:24 | NUR ---
PT RESTING IN BED WITH EYES CLOSED. HOB ELEVATED. RESPIRATIONS EVEN. SpO2 100% WITH NC IN PLACE. HR 60'S.
--- NOTE | 2021-02-09 03:20 | NUR ---
PT RESTING IN BED WITH EYES CLOSED. RESPIRATIONS EVEN. HOB ELEVATED. OXYGEN IN PLACE. SpO2 100%. HR 60'S.
--- NOTE | 2021-02-09 06:49 | NUR ---
VS AND I&O COMPLETE. PT OWN MANUAL BLOOD EEYYBHHK=839/92. THIS RN MANUAL PA=280/86. PT DENIES PAIN OR SOB. RIGHT SIDE CHEST TUBE WITH HEIMLICH VALVE IN PLACE. APPROX 10 ML OF DRAINAGE IN CHAMBER. DRESSING TO RIGHT SIDE INTACT WITH OLD DRAINAGE. NO CREPITUS NOTED. FRESH WATER PROVIDED. PT DENIES FURTHER NEEDS. CALL LIGHT IN REACH.
--- NOTE | 2021-02-09 07:30 | NUR ---
Shift report received from RN Lauren, pt sitting up in bed safely w/ call light in reach, 12mL drained from R sided Heimlich chest valve, dressing intact w/ small amount of old drainage. Pt denies any pain, SOB, or needs at this time.
--- NOTE | 2021-02-09 08:18 | NUR ---
PT SITTING UP IN BED EATING BREAKFAST. PT REFUSED WARM WASHCLOTH. CALL LIGHT IN REACH, NO FURTHER NEEDS AT THIS TIME.
--- NOTE | 2021-02-09 09:30 | NUR ---
Pt sitting up in bed w/ call light in reach. Morning assesment complete and no scheduled meds at this time. Pt denies SOB, CP, or needs at this time.
--- NOTE | 2021-02-09 10:20 | NUR ---
Pt c/o midline chest pressure, but denies SOB. O2 sats 98% on 2L via NC. Kassi notified via phone call, stat CXR ordered and completed, awaiting results. Pt also refused VS from both the FRANCHISE BUSINESS CONSULTANT and this RN, tele #[address], able to obtain O2 sats and HR, both stable at this time
--- NOTE | 2021-02-09 10:32 | NUR ---
PT SITTING ON EDGE OF BED GASPING AND HOLDING THEMSELF. PT SAYS THEYRE HAVING CHEST PAIN EXACTLY LIKE WHEN THIER LUNG COLLAPSED EACH TIME. PT SAYS WHEN THEY BURP THEY FEEL A WHOOSH COME OUT OF THE DRAINAGE TUBE/MACHINE. TOMASZ COVINGTON ALERTED AND BROUGHT TO PT'S ROOM. RN ALERTED THE MD. X-RAY WAS ORDERED AND TAKEN. PT REFUSES VS FOR NOW. TOMASZ COVINGTON AWARE. CALL LIGHT WITHIN REACH, NO FURTHER NEEDS AT THIS TIME.
--- NOTE | 2021-02-09 10:37 | NUR ---
TOMASZ COVINGTON NOTIFIED OF NO OUTPUT
--- NOTE | 2021-02-09 11:30 | NUR ---
CXR results are back and show no change from this morning's, pt still c/o chest pressure, denies PRN Tylenol, O2 sats remain 98-100% on2L via NC, Heimlich valve in place w/ good seal no leak obsereved. Kassi notified, no new orders at this time.
--- NOTE | 2021-02-09 12:30 | NUR ---
Pt agreeable to having BP taken, this RN w/ a manual reading of 200/90, pt's manual reading of 168/88, and the machine reading of 228/90 map of 127, all on the L arm. Provider notified, no new orders at this time
--- NOTE | 2021-02-09 14:15 | NUR ---
Checked on pt as notified she will dc today. She denies needs and 02 is set up at home.
--- NOTE | 2021-02-09 14:21 | NUR ---
No change in plan for dc.
--- NOTE | 2021-02-09 15:13 | NUR ---
ATTEMPTED TO GET PT'S D/C AND 2 O CLOCK VS. PT REFUSED. RN NADYA NOTIFIED.
--- NOTE | 2021-02-11 08:33 | DS ---
[facility] [address], [place] [address] Signed ADMISSION DATE: 02/05/2021 DISCHARGE DATE: 02/09/2021 REASON FOR ADMISSION: Recurrent right-sided pneumothorax. HISTORY OF PRESENT ILLNESS: This 70-year-old white woman has long-standing underlying bullous disease of both lungs as well as a chronic infiltrative picture. The patient had been discharged by me on January 14, 2021, having had nearly two weeks of hospitalization for a sizable right-sided pneumothorax, ultimately discharged home with a 32-Greek chest tube and a modified Heimlich valve. An outpatient observational approach undertaken to allow for resolution of an ongoing air leak. The chest tube was removed and there was no evidence of recurrent pneumothorax. Unfortunately, the patient returned to the emergency room again with shortness of breath and chest pain on February 05 and found to have a sizable right-sided pneumothorax once again. It is noted that she is on 2 L nasal cannula oxygen continuously and has been for 11 years. She had seen a mixing tumbler operator in [place] at that time, but the underlying etiology of her lung problem remains uncertain. Notably, she never smoked. She is admitted for further evaluation and care at this time for recurrent right-sided pneumothorax with the underlying lung disease that is noted. Her other medical issues include untreated hypertension. She has strictly refused any medication for that ailment. Notably, she has never had congestive heart failure nor stroke or renal failure. PHYSICAL EXAMINATION: GENERAL: Well-developed, well-nourished, white woman, who did not look to be in severe distress, 2 L nasal cannula oxygen was in place. NECK: Trachea was midline. Chest: Showed normal respiratory excursion without tachypnea. IMAGING DATA: Chest x-ray showed at least 50% pneumothorax on the right side, no sign of left-sided problem. HOSPITAL COURSE: Given her general refusal of most medications including treatment for hypertension, which has been outlined to her by myself and others including her primary provider, Electronically Signed By: MARE MONTANO MD 02/11/21 0833 PATIENT NAME: MARJORIE MUSTAFA DISCHARGE SUMMARY DATE OF : 48 REPORT #: [id number] PHYSICIAN: MARE MONTANO MD PCP: BRUCE PFEIFFER MD REPORT IS CONFIDENTIAL AND NOT TO BE RELEASED WITHOUT AUTHORIZATION [facility] [address], [place] [address] Signed Walter, she was taken to the operating room, where she underwent intravenous sedation and placement of a 32-Greek right-sided chest tube at approximately the fifth intercostal space. The lung looked well expanded following operation, but there was an episodic air leak. She was considered most appropriately managed by thoracoscopy with bleb resection and mechanical pleurodesis. I conferred with the turbine engine assembler about this and in preparation for this consideration, an arterial blood gas was obtained as well as pulmonary function test. Most dominantly noted on pulmonary function test was FEV1 of only 770 mL (0.77 L) and notably also on arterial blood gas, pH of 7.39, CO2 of 52.3, bicarb of 31.3, O2 saturation on 2 L of 96.6. Venous blood gas was also performed, which showed pH of 7.38, CO2 of 56.9, O2 of 43, and O2 saturation is 77.6. Consultation was undertaken with Dr. Manzanares the hospitalist regarding consideration for hypertension control. A thorough evaluation was undertaken and recommendations for blood pressure control and initiation of an agent were outlined to the patient and continues to refuse to do that. Of some note, she does take her blood pressure on a routine basis at home. Her own monitor shows her pressure to run between 125 and 145. Her blood pressure machine was measured against the hospital and admission was found to be deficient by at least 40 points most of the time. Still, she believes her machine to be accurate despite demonstrated evidence to contrary. I did advise her that her special risks related to her hypertension include stroke, renal failure, heart failure, and other maladies, but she still declines any therapy in that regard. Serial chest x-ray showed that the lung was almost entirely expanded, but she did have an episodic air leak. She was converted to a Heimlich valve from the Pleur-evac device and her lung remained well expanded except for a minimal tiny apical pneumothorax. Consideration in her case for marginal candidacy for operative intervention was discussed. The consideration at this point would be to discharge with the chest tube in the Heimlich valve and make consideration for chemical pleurodesis, possibly by doxycycline once certain that the lung was well expanded and that there was no ongoing air leak. Chemical pleurodesis in the face of ongoing air leak would be extremely problematic and likely results in infectious complications including possible isolated pockets of empyema. Our plan is to follow up with her a week or so and obtain a chest x-ray before the visit and assess clinically how she is doing regarding air leak and resolution of the air leak itself. It was noted that on chest CT scan performed during her prior hospitalization profound and impressive bullous disease of her lungs was noted as well as her extensive Electronically Signed By: MARE MONTANO MD 02/11/21 0833 PATIENT NAME: MARJORIE MUSTAFA NUBIA DISCHARGE SUMMARY DATE OF : 48 REPORT #: [id number] PHYSICIAN: MARE MONTANO MD PCP: BRUCE PFEIFFER MD REPORT IS CONFIDENTIAL AND NOT TO BE RELEASED WITHOUT AUTHORIZATION [facility] [address], [place] [address] Signed infiltrative appearance. It is recalled also that she has even on last hospitalization refused any COVID testing nor any COVID vaccination, though she is definitely an appropriate candidate for it. FOLLOWUP PLANS: She will return to see me in a week or so, at which point we will review her chest x-ray done at least the day before and we will assess for her clinical findings of air leak in the Heimlich (atrium) device. She will avoid going to altitude (a plane) and minimize forceful coughing flows to allow the recurrent air leak to heal more fully. She will not be discharged home with an antibiotic. At this point, she has no evidence of infection. She will continue her own self-directed medications at home, which include: 1. Vitamin D3 50 mcg p.o. daily. 2. Vitamin E 400 unit capsule two tablets p.o. daily. 3. Astragalus root 1 g powder everyday. 4. Garlic one tablet p.o. daily. DISCHARGE DIAGNOSES: 1. Recurrent right pneumothorax. 2. History of primary pneumothorax in January of 2021. 3. Long-standing extensive bullous disease of both lungs and infiltrative changes as well. 4. Home oxygen dependency 2 L nasal cannula. 5. Hypertension (untreated per patient demand). MD TERESA Lilly/MISTYL /[id number] Copies: ~ Electronically Signed By: MARE MONTANO MD 02/11/21 0833 PATIENT NAME: MARJORIE MUSTAFA DISCHARGE SUMMARY DATE OF : 48 REPORT #: [id number] PHYSICIAN: MARE MONTANO MD PCP: BRUCE PFEIFFER MD REPORT IS CONFIDENTIAL AND NOT TO BE RELEASED WITHOUT AUTHORIZATION
== END 2021-02-09 15:00 | disposition home or self-care (01) | DRG 200 ==
LOC: ED 09:26 → MS 15:14
PROVIDERS: ADMIT Surgery; ATTEND Surgery
PROC: 0W9900Z Drainage of Right Pleural Cavity with Drainage Device, Open Approach (ICD-10-PCS; principal; 2021-02-05 17:00)
DX: J93.83 Other pneumothorax (principal); J96.11 Chronic respiratory failure with hypoxia; J84.10 Pulmonary fibrosis, unspecified; F41.9 Anxiety disorder, unspecified; J43.9 Emphysema, unspecified; Z98.1 Arthrodesis status; Z98.890 Other specified postprocedural states; Z90.710 Acquired absence of both cervix and uterus; Z90.49 Acquired absence of other specified parts of digestive tract; Z86.73 Personal history of transient ischemic attack (TIA), and cerebral infarction without residual deficits; Z88.6 Allergy status to analgesic agent; Z88.1 Allergy status to other antibiotic agents; Z88.5 Allergy status to narcotic agent; Z88.8 Allergy status to other drugs, medicaments and biological substances; Z79.899 Other long term (current) drug therapy; Z91.038 Other insect allergy status; Z99.81 Dependence on supplemental oxygen
CPT/HCPCS: 00520; 36600; 71045; 71046; 80053; 82803; 84484; 85025; 93005; 93010; 94010; 94760; 99285-25; J2704; J7121

== ENCOUNTER 2021-03-20 20:20 | Emergency (ER) | payer MEDICARE ==
[~2021-03-20] VITALS: Ht 167.6 cm; Wt 54.6 kg
[~2021-03-20 20:20] MED LIST changes: +ASTRAGALUS ROOT1 GM MISC; +GARLIC1 EAC1 PO; +HAWTHORN150 MG PO; +VITAMIN D350 MCG PO; +VITAMIN E400 UNI2 PO
--- OUTSIDE RECORDS SUMMARY | 2021-03-20 20:28 | XMS ---
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 Care History Medical/Surgical 10/16/2017 [facility] - Patient is currently established with [facility]. If patient is seen in the ED during business hours. Please contact CHWs at [facility]. Care Recommendation: This patient has had 5 or more Emergency Department visits in the last 12 months.\T\nbsp; Patient requires education on the scope and purpose of the ED as an acute care provider not a Primary Care Provider and should not be utilized for chronic conditions.\T\nbsp; These are guidelines and the provider should exercise clinical judgment when providing care. E.D. VISIT COUNT (12 MO.) 7 NATE Schultz TOTAL 7 NOTE: Visits indicate total known visits. ED/UCC VISIT TRACKING (12 MO.) 03/20/2021 20:21 [facility] [place] TYPE: Emergency COMPLAINT: - RAPID HEART RATE 03/17/2021 11:05 [facility] [place] TYPE: Emergency COMPLAINT: - DIFFICULTY BREATHING 02/27/2021 11:24 [facility] [place] TYPE: Emergency COMPLAINT: - UNABLE TO DRAIN TUBE 02/05/2021 09:27 [facility] [place] TYPE: Emergency COMPLAINT: - PREASURE ON CHEST 12/31/2020 08:50 [facility] [place] TYPE: Emergency COMPLAINT: - LUMP IN THROAT, RIBCAGE PRESSURE, BURP SENSATION 06/07/2020 13:50 [facility] [place] TYPE: Emergency COMPLAINT: - HIGH B/P, DIZZY DIAGNOSES: - Allergy status to other drugs, medicaments and biological substances - Hypertensive urgency - Bee allergy status - Allergy status to narcotic agent - Dizziness and giddiness 04/28/2020 12:32 [facility] [place] TYPE: Emergency COMPLAINT: - HIGH B/P, DIZZY DIAGNOSES: - Elevated blood-pressure reading, without diagnosis of hypertension - Bee allergy status - Allergy status to other drugs, medicaments and biological substances - Dizziness and giddiness INPATIENT VISIT TRACKING (12 MO.) 02/05/2021 15:14 [facility] [place] TYPE: Medical Surgical COMPLAINT: - PNEUMOTHORAX DIAGNOSES: - Other insect allergy status - Personal history of transient ischemic attack (TIA), and cerebral infarction without residual deficits - Allergy status to other drugs, medicaments and biological substances - Allergy status to other antibiotic agents - Allergy status to narcotic agent - Allergy status to other drugs, medicaments and biological substances - Anxiety disorder, unspecified - Allergy status to analgesic agent - Allergy status to narcotic agent - Other pneumothorax - Personal history of transient ischemic attack (TIA), and cerebral infarction without residual deficits - Dependence on supplemental oxygen - Allergy status to other antibiotic agents - Other insect allergy status - Arthrodesis status - Acquired absence of other specified parts of digestive tract - Acquired absence of both cervix and uterus - Other specified postprocedural states - Other pneumothorax - Pulmonary fibrosis, unspecified - Dependence on supplemental oxygen - Chronic respiratory failure with hypoxia - 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 - Allergy status to narcotic agent - Acquired absence of both cervix and uterus - Chronic obstructive pulmonary disease, unspecified - Other specified postprocedural states - Acquired absence of both cervix and uterus - Allergy status to other antibiotic agents - Essential (primary) hypertension - Pulmonary fibrosis, unspecified - 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
[2021-03-20] MEDS ORDERED: K-TAB ER20 MEQ PO ×2 (22:00→22:02)
--- NOTE | 2021-03-21 07:51 | EKG ---
[facility] [address] [facility] [place] [address] Signed Sinus tachycardia Nonspecific ST and T wave abnormality Abnormal ECG When compared with ECG of 17-MAR-2021 11:26, Vent. rate has increased BY 59 BPM Non-specific change in ST segment in Inferior leads ST now depressed in Anterolateral leads Nonspecific T wave abnormality, worse in Anterolateral leads Confirmed by MOJGAN WISEMAN MD ([id number]) on 03/21/2021 7:50:55 AM Electronically Signed By: MOJGAN WISEMAN MD 03/21/21 0751 PATIENT NAME: MARJORIE MUSTAFA Electrocardiogram DATE OF : 48 PHYSICIAN: MOJGAN WISEMAN MD REPORT #: [id number] REPORT IS CONFIDENTIAL AND NOT TO BE RELEASED WITHOUT AUTHORIZATION
== END 2021-03-20 22:08 | disposition home or self-care (01) ==
LOC: ED 20:20
DX: I47.1 Supraventricular tachycardia (principal); E87.6 Hypokalemia; Z88.1 Allergy status to other antibiotic agents; Z88.5 Allergy status to narcotic agent; Z88.6 Allergy status to analgesic agent; Z88.8 Allergy status to other drugs, medicaments and biological substances; Z91.030 Bee allergy status; Z79.899 Other long term (current) drug therapy
CPT/HCPCS: 71045; 80048; 84443; 85025; 93005; 93010; 94640; 96374; 99285-25

== ENCOUNTER 2021-03-24 08:29 | Day surgery (SDC) | payer OTHER ==
[~2021-03-24] VITALS: Ht 167.6 cm; Wt 49.1 kg
--- NOTE | ~2021-03-24 | OR ---
[facility] [address] [place], [place] [address] Draft DATE OF OPERATION: 03/24/2021 SURGEON: Mare Montano MD PREOPERATIVE DIAGNOSES: 1. Recurrent right pneumothorax with long-standing persistent air leak (resolved). 2. "Stuck" right thoracostomy tube. 3. Recent history of right thrombolytic therapy through right chest tube. POSTOPERATIVE DIAGNOSES: 1. Recurrent right pneumothorax with long-standing persistent air leak (resolved). 2. "Stuck" right thoracostomy tube. 3. Recent history of right thrombolytic therapy through right chest tube. PROCEDURES: 1. Exam under anesthesia. 2. Explantation of right chest tube. ANESTHESIA: Local with monitored anesthesia care, Ajay Kilpatrick CRNA INDICATIONS: This 70-year-old white woman is a patient of Patricia Pfeiffer MD. In January, she presented with a large right pneumothorax. 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 The original treatment at the time of her pneumothorax was chest tube placement. She had a rather prolonged air leak without full expansion of the lung despite various means to do so. Ultimately, this resolved, the chest tube was removed and she had good expansion of the lung with no sign of pneumothorax. She had recurrent pneumothorax a week later, requiring placement of a 32-Occitan chest tube. A persistent air leak was noted on this occasion as well. She has extremely poor underlying lung disease and underwent pulmonary function tests, anticipating possible thoracoscopic pleurodesis, bleb resection, etc. She was found to have an FEV1 of only 0.77 despite maximal efforts. The patient desperately did not want to undergo any sort of thoracoscopic or open procedure for this and on that basis, the chest tube was left in situ with the air leak with a Heimlich collection valve in place. Over time, the lung has fully expanded. The air leak has ceased and a plan to remove the chest tube was recently undertaken. We had considered the possibility of chemical pleurodesis, but she then changed her mind and declined that. PATIENT NAME: MARJORIE MUSTAFA OPERATIVE REPORT DATE OF : 48 REPORT #: [id number] PHYSICIAN: MARE MONTANO MD PCP: PATRICIA PFEIFFER MD REPORT IS CONFIDENTIAL AND NOT TO BE RELEASED WITHOUT AUTHORIZATION [facility] [address] [place], [place] [address] Draft Approximately two weeks ago, an attempt at pulling out the chest tube as an outpatient was unsuccessful as the tube was markedly fixed and it was extremely uncomfortable for the patient. A CT scan was done to assure that the chest tube was not in continuity with the subclavian vessel; it was not. There appeared to be good expansion of the lung with a dense fibrinous peel in association with the chest tube and I postulated that, perhaps it was "stuck" due to fibrin entering the port holes of the tube itself. On that basis, thrombolytic therapy for the tube was undertaken by me last Sunday, but did not improve the mobility of the tube. She has extreme pain upon manipulation of the tube and numerous limitations in what we can do in her management; she is notably averse to COVID vaccination, refuses COVID testing and other similar concerns. I have recommended that she come to the hospital and under IV sedation, attempt at withdrawing the chest tube, which appears to be stuck, so as to allow for a more deliberate and higher amount of power to dislodge the tube. If this is unsuccessful, consideration will be made for endoscopic evaluation of the tube itself and/or debridement of the contents of the tube to allow its loosening up and removal. Special risk of bleeding, infection, recurrent pneumothorax, and other unforeseen complications was reviewed in detail with her. She understands and wished to proceed. FINDINGS: The tube was quite densely adherent to the pleural space, but with IV sedation, steady pressure and so forth, it was explanted in total with no breakage of the tube or any other problem. There was no untoward bleeding. A chest x-ray in the recovery room is pending. DESCRIPTION OF PROCEDURE: The patient was brought to the operating room, placed in supine position with the arm at the side. The dressing was removed and the chest tube evaluated. It was no longer secured with a suture as it was stuck in place already. Initial attempts at dislodgement were not successful. Additional sedation was given and with steady pressure, it dislodged and was withdrawn without known complication. There was no bleeding or other problem. Xeroform gauze was applied to the site as was a sterile gauze. The tube was examined and found to be explanted in total. She was then taken to the recovery room, anticipating a portable chest x-ray. She suffered no complication. PATIENT NAME: MARJORIE MUSTAFA OPERATIVE REPORT DATE OF : 48 REPORT #: [id number] PHYSICIAN: MARE MONTANO MD PCP: PATRICIA PFEIFFER MD REPORT IS CONFIDENTIAL AND NOT TO BE RELEASED WITHOUT AUTHORIZATION [facility] [address] [place] [address] Draft MD TERESA Lilly/RAYSA /[id number] cc: Patricia Pfeiffre MD Copies: ~ PATIENT NAME: [facility]JORIE [facility]FA [facility] OPERATIVE REPORT DATE OF : 48 REPORT #: [id number] PHYSICIAN: MARE MONTANO MD PCP: PATRICIA PFEIFFER MD REPORT IS CONFIDENTIAL AND NOT TO BE RELEASED WITHOUT AUTHORIZATION
[~2021-03-24 08:29] MED LIST changes: +K-TAB ER20 MEQ PO
--- NOTE | 2021-03-24 11:32 | NUR ---
03/24/21 1132 Sheets,Carlotta 1116 PT ARRIVED TO PACU ON 6L VIA MASK, VSS. PT DROWSY AND REPORT 8/10 PAIN, "A LITTLE PAIN." PT REPROTS 8-9/10 PAIN AT BASELINE AND REFUSES ANY MEDICATIONS.
[2021-03-24] MEDS ORDERED: ACETAMINOPHEN500 MG PO (11:40)
== END 2021-03-24 12:10 | disposition home or self-care (01) ==
LOC: OPS 08:29 → DS 08:29 → OPS 10:15 → DS 11:15 → OPS 12:10
PROVIDERS: ATTEND Surgery
DX: J93.9 Pneumothorax, unspecified (principal); I10 Essential (primary) hypertension; J84.9 Interstitial pulmonary disease, unspecified; Z88.5 Allergy status to narcotic agent; Z88.8 Allergy status to other drugs, medicaments and biological substances; Z91.030 Bee allergy status
CPT/HCPCS: 71045; J0690; J2001; J2250; J2704; J3010; J7121

== ENCOUNTER 2021-06-09 11:53 | Emergency (ER) | payer OTHER ==
[~2021-06-09] VITALS: Ht 167.6 cm; Wt 49.2 kg
--- OUTSIDE RECORDS SUMMARY | 2021-06-09 12:02 | XMS ---
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 Don VISIT COUNT (12 MO.) 6 NATE Schultz TOTAL 6 NOTE: Visits indicate total known visits. 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 - Palpitations - Allergy status to analgesic agent - Hypokalemia 03/17/2021 11:05 NATE [facility] [place] TYPE: Emergency COMPLAINT: - DIFFICULTY BREATHING DIAGNOSES: - Dyspnea, unspecified - Allergy status to other drugs, medicaments and biological substances - Allergy status to other antibiotic agents - Allergy status to narcotic agent - Other assisted (current) drug therapy - Bee allergy status - Shortness of breath 02/27/2021 11:24 [facility] [place] TYPE: Emergency COMPLAINT: - UNABLE TO DRAIN TUBE 02/05/2021 09:27 [facility] [place] TYPE: Emergency COMPLAINT: - PREASURE ON CHEST 12/31/2020 08:50 [facility] [place] TYPE: Emergency COMPLAINT: - LUMP IN THROAT, RIBCAGE PRESSURE, BURP SENSATION INPATIENT VISIT TRACKING (12 MO.) 02/05/2021 15:14 [...] Chronic respiratory failure with hypoxia - Other assisted (current) drug therapy - Emphysema, unspecified - Acquired absence of other specified parts of digestive tract - Other specified postprocedural states - Chronic respiratory failure with hypoxia - Pulmonary fibrosis, unspecified - Anxiety disorder, unspecified - Emphysema, unspecified - Pneumothorax, unspecified - Other termite control representative (current) drug therapy - Acquired absence of [...] narcotic agent - Other pneumothorax - Other assisted (current) drug therapy - Allergy status to narcotic agent - Acquired absence of both cervix and uterus - Chronic obstructive pulmonary disease, unspecified - Other specified postprocedural states - Acquired absence of both cervix and uterus - Allergy status to other antibiotic agents - Essential (primary) hypertension - Pulmonary fibrosis, unspecified - Other termite control representative (current) drug therapy - Allergy status to analgesic agent - Essential (primary) hypertension - Other specified postprocedural states - Emphysema, unspecified - Pulmonary fibrosis, unspecified [email or web address]
--- NOTE | 2021-06-09 17:28 | EKG ---
[facility] [address] [place] [address] Signed Normal sinus rhythm Moderate voltage criteria for LVH, may be normal variant ( R in aVL , Sokolow-Beckman ) Borderline ECG When compared with ECG of 20-MAR-2021 20:27, ST no longer depressed in Anterior leads Nonspecific T wave abnormality, improved in Inferior leads Nonspecific T wave abnormality, improved in Anterolateral leads Confirmed by ALLISON RENDON MD ([id number]) on 06/09/2021 5:28:05 PM Electronically Signed By: ALLISON RENDON MD 06/09/21 1728 PATIENT NAME: MARJORIE MUSTAFA Electrocardiogram DATE OF : 48 PHYSICIAN: ALLISON RENDON MD REPORT #: [id number] REPORT IS CONFIDENTIAL AND NOT TO BE RELEASED WITHOUT AUTHORIZATION
== END 2021-06-09 19:01 | disposition home or self-care (01) ==
LOC: ED 11:53
DX: R00.2 Palpitations (principal); R10.9 Unspecified abdominal pain; I10 Essential (primary) hypertension; Z88.1 Allergy status to other antibiotic agents; Z91.030 Bee allergy status; Z88.8 Allergy status to other drugs, medicaments and biological substances; Z88.6 Allergy status to analgesic agent; Z88.5 Allergy status to narcotic agent; Z79.899 Other long term (current) drug therapy
CPT/HCPCS: 36415; 71045; 74177; 80053; 85025; 93005; 93010; 99285-25; Q9967

== ENCOUNTER 2021-07-28 16:34 | Emergency (ER) | payer OTHER ==
[~2021-07-28] VITALS: Ht 167.6 cm; Wt 59.0 kg
--- OUTSIDE RECORDS SUMMARY | 2021-07-28 16:42 | XMS ---
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 E.D. VISIT COUNT (12 MO.) 7 NATE Schultz TOTAL 7 NOTE: Visits indicate total known visits. 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 [place] TYPE: Emergency COMPLAINT: - RAPID HEART RATE DIAGNOSES: - Allergy status to other drugs, medicaments and biological substances - Allergy status to narcotic agent - Supraventricular tachycardia - Allergy status to other antibiotic agents - Bee allergy status - Other mcfp (current) drug therapy - Palpitations - Allergy status to analgesic agent - Hypokalemia 03/17/2021 11:05 [facility] [place] TYPE: Emergency COMPLAINT: - DIFFICULTY BREATHING DIAGNOSES: - Dyspnea, unspecified - Allergy status to other drugs, medicaments and biological substances - Allergy status to other antibiotic agents - Allergy status to narcotic agent - Other mcfp (current) drug therapy - Bee allergy status - Shortness of breath 02/27/2021 11:24 [facility] [place] TYPE: Emergency COMPLAINT: - UNABLE TO [...] Chronic respiratory failure with hypoxia - Other mcfp (current) drug therapy - Emphysema, unspecified - Acquired absence of other specified parts of digestive tract - Other specified postprocedural states - Chronic respiratory failure with hypoxia - Pulmonary fibrosis, unspecified - Anxiety disorder, unspecified - Emphysema, unspecified - Pneumothorax, unspecified - Other mcfp (current) drug therapy - Acquired absence of [...] narcotic agent - Other pneumothorax - Other mcfp (current) drug therapy - Allergy status to narcotic agent - Acquired absence of both cervix and uterus - Chronic obstructive pulmonary disease, unspecified - Other specified postprocedural states - Acquired absence of both cervix and uterus - Allergy status to other antibiotic agents - Essential (primary) hypertension - Pulmonary fibrosis, unspecified - Other long chain quiller 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
[2021-07-28] MEDS ORDERED: MAGNESIUM250 M1 PO (16:52)
--- NOTE | 2021-07-29 13:44 | EKG ---
[facility] [address] [place] [address] Signed Normal sinus rhythm Minimal voltage criteria for LVH, may be normal variant ( R in aVL ) Borderline ECG When compared with ECG of 28-JUL-2021 16:36, (Unconfirmed) Vent. rate has decreased BY [address] no longer depressed in Anterior leads Confirmed by ALLISON RENDON MD ([id number]) on 07/29/2021 1:44:21 PM Electronically Signed By: ALLISON RENDON MD 07/29/21 1344 PATIENT NAME: MARJORIE MUSTAFA Electrocardiogram DATE OF : 48 PHYSICIAN: ALLISON RENDON MD REPORT #: [id number] REPORT IS CONFIDENTIAL AND NOT TO BE RELEASED WITHOUT AUTHORIZATION
--- NOTE | 2021-07-29 13:44 | EKG ---
[facility] [address] [facility] [place], [place] [address] Signed Sinus tachycardia Minimal voltage criteria for LVH, may be normal variant ( R in aVL ) Borderline ECG When compared with ECG of 09-JUN-2021 11:58, No significant change was found Confirmed by ALLISON RENDON MD ([id number]) on 07/29/2021 1:44:18 PM Electronically Signed By: ALLISON RENDON MD 07/29/21 1344 PATIENT NAME: MARJORIE MUSTAFA NUBIA Electrocardiogram DATE OF : 48 PHYSICIAN: ALLISON RENDON MD REPORT #: [id number] REPORT IS CONFIDENTIAL AND NOT TO BE RELEASED WITHOUT AUTHORIZATION
== END 2021-07-28 21:49 | disposition home or self-care (01) ==
LOC: ED 16:34
DX: I16.9 Hypertensive crisis, unspecified (principal); I11.0 Hypertensive heart disease with heart failure; I50.9 Heart failure, unspecified; Z88.1 Allergy status to other antibiotic agents; Z88.8 Allergy status to other drugs, medicaments and biological substances; Z88.5 Allergy status to narcotic agent; Z91.030 Bee allergy status; Z79.899 Other long term (current) drug therapy
CPT/HCPCS: 36415; 71045; 71260; 74177; 80053; 83735; 83835; 83880; 84443; 84484; 85025; 85379; 93005; 93010; 99285-25; Q9967

== ENCOUNTER 2023-01-16 20:30 | Inpatient (IN) | payer OTHER ==
[~2023-01-16] VITALS: Ht 167.6 cm; Wt 56.0 kg
[~2023-01-16 20:30] MED LIST changes: +MAGNESIUM250 M1 PO; +PULMICORT0.5 MG/2 M INH; +SODIUM CHLORIDE3 ML INH
[2023-01-16 21:12] LABS: ALBUMIN 3.6 g/dL (3.4-5.0); ALBUMIN/GLOBULIN RATIO 0.82 (1.1-2.4); ANION GAP 12.9 (7-21); BILIRUBIN, TOTAL 0.5 ng/dL (0.2-1.0); BUN/CREATININE RATIO 16.66 (6.0-28.6); CALCIUM 9.6 mg/dL (8.5-10.1); CREATININE, SERUM 1.02 mg/dL (0.55-1.02); POTASSIUM 4.9 mmol/L (3.5-5.1)
[2023-01-16 21:15] LABS: BASOPHILS 0.7 % (0-2); EOSINOPHILS 1.1 % (0-6); HEMATOCRIT 44.6 % (35.0-50.0); HEMOGLOBIN 14.8 g/dL (12.0-18.0); LYMPHOCYTES 20.7 % (24-44); MCH 29.3 (27-36); MCHC 33.3 g/dl (30-36); MCV 88.1 fl (81-99); MONOCYTES 2.3 % (0-12); NEUTROPHILS 75.2 % (39-80); PLATELET COUNT 362 K/uL (140-440); RBC 5.06 M/ul (4.3-5.7); RDW 14.2 (10.5-15.0)
[2023-01-17] VITALS (11 sets, daily range): BP systolic 144–194; BP diastolic 91–114
--- NOTE | 2023-01-17 06:04 | NUR ---
SBAR REPORT RECEIVED FROM ED RN WILLIE. PATIENT MOON IS ON 2.5L O2 BASELINE, COMPLAINTS OF DIAPHRAGM PAIN X 1YEAR, REFUSING MULTIPLE INTERVENTIONS INCLUDING 2RN SKIN CHECK, COVID SWAB, MEDICATIONS SUCH ANY ANLAGESICS OR ANTIHYPERTENSIVE MEDICATIONS. SHE IS ALSO NOT INTERESTED IN EDUCATION REGARDING CURRENT ILLNESS AND DENYING ANY HELP UPON DISCHARGE. ROUNDED WITH MD JONES REGARDING PATIENT'S DEMEANOR. WILL CONTINUE TO TRY TO EDUCATE.
--- NOTE | 2023-01-17 06:08 | NUR ---
PATIENT MOON CONTINUES TO ENDORSE PAIN. SHE ORIGINALLY DID NOT WANT ACETAMINOPHEN BECAUSE IT DOES NOTHING AND IS AN NSAID.. EDUCATION PROVIDED. SHE STILL PREFERRED FENTANYL. HOWEVER SHE HAS AN ALLERGY TO FENTANYL. SHE FINALLY CONSENTED TO GETTING A "HALF ON ONE PILL" OF TYLENOL.
--- NOTE | 2023-01-17 06:15 | NUR ---
PATIENT MOON IS RESTING WITH EYES CLOSED. SHE WOULD LIKE TO REST. DENIES ANY NEEDS AT THIS TIME
--- NOTE | 2023-01-17 06:33 | NUR ---
PATIENT MOON IS NOTED TO BE ALERT AND ORIENTED X4. SHE IS ABLE TO MOVE ALL EXTREMITIES, HOWEVER DUE TO DIAPHRAMG PAIN, MOVING HER LOWER EXTREMITIES IS DIFFICULT AT TIMES. 1 PERSON ASSIST TO BATHROOM. PERRL. ACETAMINOPHEN GIVEN FOR PAIN RESP- CLEAR/DIMINISHED BREATH SOUNDS. ABLE TO COUGH AND DEEP BREATH. 2.5-4L NC REQUIRED TO KEEP O2 SATS ABOVE 88% CARDIAC- VSS. PO 10MG HYDRALAZINE GIVEN FOR HTN. NSR-ST GI/- ABDOMINAL/ DIAPHRAGM PAIN X1YR. REGULAR DIET. ASSIST TO BATHROOM INT-REFUSED TO ALLOW RN TO CONDUCT A SKIN CHECK. IV- REFUSED IV INSERTION.
--- NOTE | 2023-01-17 08:02 | NUR ---
IN PATIENT'S ROOM FOR ASSESSMENT, VITALS. PT TO GO DOWN FOR 2 VIEW CXR. PT TOLERATED FAIR. PT DID ALLOW FOR AM LABS TO BE DRAWN. PT STATES HER DIAPHRAMATIC PAIN IS 10/10. PT DENIES WANTING ANY TYLENOL AT THIS TIME. LUNGS ARE CLEAR. SP02 IS 89% ON 4 L CURRENTLY. BLOOD PRESSURE IS ELEVATED WELL. WILL BRING IN BREAKFAST SOON IT ARRIVES.
[2023-01-17 08:16] LABS: BASOPHILS 0.6 % (0-2); EOSINOPHILS 2.4 % (0-6); HEMATOCRIT 45.5 % (35.0-50.0); HEMOGLOBIN 14.9 g/dL (12.0-18.0); LYMPHOCYTES 38.2 % (24-44); MCH 28.9 (27-36); MCHC 32.8 g/dl (30-36); MONOCYTES 4.3 % (0-12); NEUTROPHILS 54.5 % (39-80); PLATELET COUNT 345 K/uL (140-440); RBC 5.17 M/ul (4.3-5.7); RDW 14.5 (10.5-15.0)
[2023-01-17 08:29] LABS: ALBUMIN 3.5 g/dL (3.4-5.0); ALBUMIN/GLOBULIN RATIO 0.88 (1.1-2.4); ANION GAP 10.3 (7-21); BILIRUBIN, TOTAL 0.7 ng/dL (0.2-1.0); BUN/CREATININE RATIO 19.56 (6.0-28.6); CALCIUM 9.4 mg/dL (8.5-10.1); CREATININE, SERUM 0.92 mg/dL (0.55-1.02); POTASSIUM 4.3 mmol/L (3.5-5.1); PROTEIN, TOTAL 7.5 g/dL (6.4-8.2)
--- NOTE | 2023-01-17 09:07 | NUR ---
DR. JONES IN TO SEE PATIENT AT THIS TIME. PT HAS BEEN EATING HER BREAKFAST AND DID HAVE A VISITOR IN HER ROOM, WHO HAS NOW LEFT.
--- NOTE | 2023-01-17 10:27 | NUR ---
RT CALLED TO INQUIRE ABOUT SODIUM CHLORIDE NEBS FOR PATIENT. RT NOW IN ROOM WITH PATIENT. PT HAD CALLED EARLIER AND ASKED THAT HER OXYGEN BE TURNED DOWN FROM 4 L TO 2.5 L NC.
--- NOTE | 2023-01-17 10:42 | NUR ---
DR. MONTANO IN ROOM TO SEE PATIENT AT THIS TIME, DISCUSSING PLAN OF CARE.
--- NOTE | 2023-01-17 11:29 | NUR ---
CASE MANAGEMENT IN WITH PT. DID NOT INTERRUPT. PRAYED FOR HEALING OF BODY AND MIND.
--- NOTE | 2023-01-17 11:44 | NUR ---
Patient sitting up in bed. Alert and oriented. On oxygen. Demographics verified with patient. States she lives in a single story house, alone. No stairs. Uses oxygen at home, through [place], but will be transitioning to [facility] through the [place] soon. States she is still able to drive but has not driven for 6-8 weeks due to weakness. States she has no walker or cane, but has been unable to get out of bed for approximately 4 weeks. Has home care, set up through the [place], that come in 16 hours a week to help, was approved up to 30 hours, then time decreased back to 16 hours, per patient. States financially she is doing ok. When asked if she feels she needs PT, states her PT done last year is what caused the pain in her diaphragm to start, never answers question as she continues to talk about previous experience with PT and pneumo in the past. Denies needs at this time. Instructed to notify staff if needs arise. Verbalizes understanding.
--- NOTE | 2023-01-17 12:01 | NUR ---
EXERCISED MINISTRY OF PRESENCE PT TALKED OF LIFE EXPERIENCES. PRAYED FOR [place] OF HEALTH AND BODY AND MIND.
--- NOTE | 2023-01-17 14:09 | NUR ---
PATIENT SLEEPING AT THIS TIME AFTER LUNCH. PT HAS HAD SEVERAL VISITORS THROUGHOUT THE DAY. PT REMAINS ON 4 L NC AT THIS TIME. WILL CONTINUE TO MONITOR. PT APPEARS COMFORTABLE RESTING IN BED.
--- NOTE | 2023-01-17 14:25 | NUR ---
UR NOTE [facility] PNEUMOTHORAX: OBSERVATION CARE (ISC) 01/16/23 MEETS OBSERVATION CARE ADMISSION CRITERIA
--- NOTE | 2023-01-17 15:34 | NUR ---
NOTED THAT PATIENT HAS T WAVE INVERSIONS IN LEADS II, III, AND AVF. DR. JONES NOTIFIED AND EKG AND TROPONIN LEVEL ORDERED. PT RECEIVING NEB TX OF NORMAL SALINE ONLY. LAB IN ROOM TO DRAW TROP LEVEL. PT HAS VISITOR IN ROOM AT THIS TIME. WILL CONTINUE TO MONITOR.
[2023-01-17 15:42] LABS: BILIRUBIN, URINE NEGATIVE (negative); BLOOD/HGB, URINE NEGATIVE (Negative); KETONE, URINE NEGATIVE (Negative); LEUK ESTERASE, URINE NEGATIVE (negative); NITRITE, URINE NEGATIVE (negative); PH, URINE 5.5 (5-7)
--- NOTE | 2023-01-17 16:21 | NUR ---
1621- CALL TO [facility] FOR TRANSFER, NO BEDS 1625-
--- NOTE | 2023-01-17 16:27 | NUR ---
TROPONIN LEVEL CAME BACK AT 226.[address] JONES THEN INTO ROOM TO DISCUSS THIS LEVEL WITH PATIENT, AND THE NEED TO TRANSFER PATIENT TO A HIGHER LEVEL OF CARE. PT AGREEABLE TO TRANSFER, BUT STATES, "TO [facility] ONLY." PT REFUSING HEPARIN GTT AT THIS TIME THAT DR. JONES INFORMED HER THAT WOULD BE THE STANDARD OF CARE FOR HER. PT STATES, "YOU'RE NOT PUTTING ME ON RAT POISON, NO WAY, NO HOW." PT ALLOWS THIS RN TO PLACE AN IV IN LEFT AC ONLY. SKOOG PATCHING MACHINE OPERATOR WORKING ON TRANSFERRING PATIENT TO OUTSIDE HOSPITAL.
--- NOTE | 2023-01-17 16:32 | NUR ---
call to [facility] for transfer. will call back with possible doctor
--- NOTE | 2023-01-17 16:57 | CONS ---
[facility] [address], [place] [address] Signed DATE OF CONSULTATION: 01/17/2023 REQUESTING PHYSICIAN: Dr. Mathews. PROBLEMS: Small apical pneumothorax, history of recurrent pneumothorax, underlying pulmonary fibrosis, end-stage lung disease. HISTORY OF PRESENT ILLNESS: This 72-year-old white woman is known to me from the past, hospitalized in 2020 and early 2021 for persistent right pneumothorax requiring chest tube placement and prolonged outpatient Heimlich valve management. The patient had refused more conventional management, approach of persistent pneumothorax including thoracoscopic lobectomy, pleurodesis or even chemical pleurodesis as had been offered. She has longstanding underlying pulmonary fibrosis with an FEV1 measured at 0.77. She is home oxygen dependent, usually between 2 and 3 L nasal cannula oxygen. The patient has had upper abdominal pain bilaterally and more dominantly in the right upper abdomen. An ultrasound was performed in November, which showed no sign of biliary problem specifically stones or gallbladder wall thickening. She presents to the emergency room last night with shortness of breath and after a fair amount of resistance to the usual diagnostic interventions. She was admitted to chest x-ray and subsequently CT scan of the abdomen. Chest x-ray showed an apical pneumothorax on the right side, which was considered small. The abdominal CT was negative for acute abnormality. Her lab studies showed presentation white count of 11.1, hematocrit of 44.6. Chem profile which was reasonably normal. Lipase was normal at 50 and urinalysis which has yet to be received. The patient refused coronavirus testing as she has had in the past nor any RSV testing. In short, patient was not surprisingly uncooperative with interventions that were offered. She refuses albuterol nebulizer as well, but did allow for saline nebulization which she feels was beneficial to her. The patient was admitted by Dr. Mathews for further observation and in particular to do followup chest x-ray to see for stability of the small pneumothorax. This morning, she is feeling anxious. She does not have acute shortness of breath any more than usual. She complains of some right upper abdominal pain. She has had no nausea or vomiting. She has had no hemoptysis. PHYSICAL EXAMINATION: Electronically Signed By: MARE MONTANO MD 01/17/23 1657 PATIENT NAME: MARJORIE MUSTAFA CONSULTATION DATE OF : 48 REPORT #: [id number] PHYSICIAN: MARE MONTANO MD PCP: BRUCE PFEIFFER MD REPORT IS CONFIDENTIAL AND NOT TO BE RELEASED WITHOUT AUTHORIZATION [facility] [address], [place] [address] Signed GENERAL: This is an anxious white woman who looks to be in no acute distress otherwise. VITAL SIGNS: Height is 5 feet 6 inches. She is 56 kg. HEENT: Trachea is midline. She has no jugular venous distention. CHEST: Shows bronchial breath sounds bilaterally. HEART: Regular. I do not detect murmur. ABDOMEN: Nondistended. There is no ascites. She has mild tenderness in the right subcostal area. No palpable mass. EXTREMITIES: Lower extremities show no clubbing, cyanosis, or edema. I have reviewed her chest x-ray from yesterday and today as well as the abdomen and pelvis x-rays and reports. ASSESSMENT: The patient appears to have a small right-sided pneumothorax which is stable by radiographic evaluation. An increasing pneumothorax would imply an ongoing air leak for which chest tube would be appropriate. Contrary to previous notes in the computer, she has not had pleurodesis in the past. She has refused it previously. She did have a time where a six weeks chest tube with Heimlich valve was "stuck" prior to removal once the air leak had resolved and the pneumothorax had resolved. This required fibrinolytic therapy through the tube to allow for removal of the tube, but was safely accomplished. Avoidance of another chest tube would be beneficial if possible and yet if needed can easily be replaced at this time. I did discuss with Dr. Mathews the possibility she may have biliary disease after all. Review of the ultrasound that she had on December 01 showed no evidence of biliary abnormality then. Specifically, there was no sign of gallbladder wall thickening, gallstones or other biliary abnormality. Consideration could be made for a CCK-HIDA test to assess for biliary dysfunction if the symptoms persist or warrant that. It is reasonably probable that her underlying pulmonary disease with diaphragmatic manifestations accounts for that, however. She would be an extremely questionable candidate for general anesthesia given her underlying pulmonary status if acalculous cholecystitis was identified, it is acknowledged. As discussed with Dr. Mathews continued observation and additional evaluation of chest x-ray to assure no progression of the right apical pneumothorax would be appropriate. If progressive pneumothorax is noted, then a chest tube will be indicated in any case. I reviewed this also with the patient who understands and agrees with this approach at this time. Mare Montano MD Electronically Signed By: MARE MONTANO MD 01/17/23 6905 PATIENT NAME: NETTE MUSTAFAHALLIE DELACRUZ CONSULTATION DATE OF : 48 REPORT #: [id number] PHYSICIAN: MARE MONTANO MD PCP: BRUCE PFEIFFER MD REPORT IS CONFIDENTIAL AND NOT TO BE RELEASED WITHOUT AUTHORIZATION [facility] [address] [place] [address] Signed /MISTY /[id number] cc: Dr. Reid Pfeiffer Copies: ~ Electronically Signed By: MARE MONTANO MD 01/17/23 1657 PATIENT NAME: MARJORIE MUSTAFA CONSULTATION DATE OF : 48 REPORT #: [id number] PHYSICIAN: MARE MONTANO MD PCP: BRUCE PFEIFFER MD REPORT IS CONFIDENTIAL AND NOT TO BE RELEASED WITHOUT AUTHORIZATION
--- NOTE | 2023-01-17 17:01 | CONS ---
[facility] [address] [facility] [place], [place] [address] Signed Copies: ~ Electronically Signed By: MARE MONTANO MD 01/17/23 1701 PATIENT NAME: MOONMARJORIE [facility] CONSULTATION DATE OF : 48 REPORT #: [id number] PHYSICIAN: MARE MONTANO MD PCP: BRUCE PFEIFFER MD REPORT IS CONFIDENTIAL AND NOT TO BE RELEASED WITHOUT AUTHORIZATION
--- NOTE | 2023-01-17 17:11 | NUR ---
NO BEDS AT [facility] 171- CALL TO [facility] TO ATTEMPT TRANSFER.NO ANSWER 171- CALL TO [facility] TO ATTEMPT TRANSFER, WILL CALL BACK
--- NOTE | 2023-01-17 17:55 | NUR ---
DR. JONES IN TO SEE PATIENT AT THIS TIME DISCUSSING PT'S POTENTIAL TRANSFER. [facility] [place].
--- NOTE | 2023-01-17 18:16 | NUR ---
PATIENT STATES TO DR. JONES THAT SHE IS UNWILLING TO BE PUT ON MEDICATIONS SUCH ASPIRIN, HEPARIN, DUAL ANTIPLATELETS AND SUCH, AND STATES, "I WILL NOT BE A LAB RAT." PATIENT ASKING FOR THE NUMBER FOR THE [facility] [place] AND STATES, "I THINK I HAVE MORE PULL THAN YOU GUYS. THE [facility] HAS WAY BETTER DOCTORS THAN [facility]." THE NUMBER FOR THE [facility] NOTIFICATION LINE PROVIDED TO PATIENT, WHICH WAS . PATIENT WANTING TO CALL THE CO HERSELF TO SEEK OUT TRANSFER. PT'S FRIEND JASWANT BACK IN ROOM AND GIVEN AN UPDATE BY DR. JONES WELL. PT REMAINS RESTING IN BED, HR IN THE 90s. T WAVE INVERSIONS HAVE REMAINED THE SAME. NO ST DEPRESSION OR ELEVATION HAS EVER BEEN NOTICED ON ECG TRACINGS. PT REMAINS ON 4 L NC WITH A CURRENT SP02 OF 92%. WILL CONTINUE TO MONITOR.
--- NOTE | 2023-01-17 19:13 | NUR ---
per primary rn, charge aide mirta - [facility] center called by this rn to see about bed - denied facility full - advised to call 72 hr notification number and give info to center for pt to be flagged for transfer. RN did this and confirmation number is:[id number]. Call back to transfer line to to confirm: pt is most likely a canidate for trsf as she is not [facility] the [facility] and or spec[facility] care. Her chart note is flagged for a Non stemi, likely she will not get a bed. pt refused trsf to other higher level of care - see primary nurse mirta notes. update to charge.
--- NOTE | 2023-01-17 22:20 | EKG ---
[facility] [address] [facility] [place] [address] Signed Sinus tachycardia Otherwise normal ECG When compared with ECG of 31-OCT-2022 19:23, No significant change was found Confirmed by Richard Jones MD () on 01/17/2023 10:20:35 PM Electronically Signed By: RICHARD JONES MD 01/17/232219 PATIENT NAME: MOONMARJORIEHALLIE DELACRUZ Electrocardiogram DATE OF : 48 PHYSICIAN: RICHARD JONES MD REPORT #: [id number] REPORT IS CONFIDENTIAL AND NOT TO BE RELEASED WITHOUT AUTHORIZATION
--- NOTE | 2023-01-17 22:31 | EKG ---
[facility] [address] [facility] [place] [address] Signed Normal sinus rhythm Moderate voltage criteria for LVH, may be normal variant T wave abnormality, consider inferolateral ischemia Prolonged QT Abnormal ECG When compared with ECG of 16-JAN-2023 20:43, (Unconfirmed) T wave inversion now evident in Inferior leads T wave inversion now evident in Lateral leads Confirmed by Richard Jones MD () on 01/17/2023 10:31:42 PM Electronically Signed By: RICHARD JONES MD 01/17/232230 PATIENT NAME: MARJORIE MUSTAFA Electrocardiogram DATE OF : 48 PHYSICIAN: RICHARD JONES MD REPORT #: [id number] REPORT IS CONFIDENTIAL AND NOT TO BE RELEASED WITHOUT AUTHORIZATION
--- NOTE | 2023-01-17 23:03 | NUR ---
PATIENT MOON CONTINUES TO ENDORSE COMFORT. SHE WAS ABLE TO HAVE A VERY LARGE BOWEL MOVEMENT. SHE WAS GIVEN CARDIAC HEALTH AND STRIP EDUCATION. SHE HAS STATED THAT SHE FEELS MUCH BETTER THIS EVENING AND IS HOPING TO GET SOME REST.
--- NOTE | 2023-01-17 23:17 | NUR ---
2000- SBAR HANDOFF RECEIVED FROM DAY SHIFT TOMASZ YOUNG. PATIENT MOON HAS BEEN VERY INVOLVED WITH HER CARE AND ASKS APPROPRIATE QUESTIONS REGARDING HER PLAN. PATIENT MOON CONTINUES TO EXPRESS DISINTEREST IN MOST MEDICATIONS AND INTERVENTIONS.
[2023-01-18 00:49] VITALS: BP 152/89
--- NOTE | 2023-01-18 06:45 | NUR ---
PATIENT MOON HAD A PLEASANT AND RESTFUL EVENING. TROPONINS ARE TRENDING DOWN. NO NEEDS OR DESIRES WERE EXPRESSED DURING THE SHIFT. NEURO-ALERT AND ORIENTED X 4. ABLE TO MOVE ALL EXTREMITIES. AMBULATES WITH MINIMAL DIFFICULTY TO COMMODE. CARDIAC- ST ELEVATION CONTINUES TO BE NOTED. TROPONINS TRENDING DOWN. SHE ALLOWED THIS RN TO TAKE BP 1X DURING THE SHIFT RESP- 2.5L NC GI/- LARGE BOWEL MOVEMENT, REGULAR DIET LDA- 20G L SHE REQUESTED US TO CALL [facility]
[2023-01-18 08:00] VITALS: BP 127/86
--- NOTE | 2023-01-18 08:00 | NUR ---
PATIENTS ASSESSMENT COMPLETED THIS AM. PATIENT UNWILLING TO HAVE STAFF DO A FULL SKIN ASSESSMENT. PATIENT UP TO THE BEDSIDE CAMMODE WITH CORD MANAGEMENT. PATIENT ABLE TO WIPE HERSELF WITH NO ASSISTANCE. PATIENT BACK TO BED. PATIENT OXYGEN INCREASED WITH ACTIVITY TO 4L NC. PATIENT BREATH SOUNDS CLEAR AND DIMINISHED IN RIGHT LOWER BASE. PATIENT ABD TENDER TO PALPITATION. PATIENT REPROTS HER ABD PAIN IS NORMAL FOR HER. PATIENT DENIES CHEST PAIN, ARM PAIN, JAW/FACE PAIN. PATIENT VITALS DONE AT THIS TIME. NO OTHER NEEDS AT THIS TIME. STAFF WILL BRING IN FOOD WHEN IT ARRIVES.
--- NOTE | 2023-01-18 09:05 | NUR ---
KATHLEEN RN FROM [facility] CALLED AND UPDATED STAFF THAT PATIENT HAS BEEN CALLING ALL NIGHT AND THIS MORNING IN REGARDS TO HER TRANSFERING. ATTEPMT WAS MADE YESTERDAY TO TRANSFER PATIENT AND AFTER ACCEPTANCE FROM FACILITY AND MD AT ANOTHER HOSPITAL PATIENT THEN REFUSED. PATIENT ONLY WANTED TRANSFER TO [facility]. NO BEDSPACE WAS AVAILABLE AT THAT TIME. PER KATHLEEN TOLBERT, PATIENT HAS BEEN VERY INSISTANT AND ABRASIVE WITH STAFF ON THE PHONE. PER MD JONES PATIENT NSTEMI IS RESOLVING AND NO NEED FOR TRANSFER AT THIS TIME. NO BEDSPACE IS AVAILABLE AT [facility] AT THIS TIME WELL. MD GRAY AND STAFF WITH UPDATE PATIENT OF PLAN OF CARE.
--- NOTE | 2023-01-18 09:11 | NUR ---
PATIENT CALLED AND STATED "WHAT IS THE JEREMIAH WITH MY TRANSFER". UPDATED PATIENT THAT PATIENT REMAINS STABLE. REVIEWED LABS AND VITALS WITH PATIENT. PATIENT DENEIS ALL PAIN EXCEPT HER PAIN IN HER DIAPHRAM THAT SHE HAS HAD FOR YEARS. UPDATED THAT MD GRAY WILL BE IN TO DISCUSS PLAN OF CARE WITH PATIENT AFTER IMAGING IS COMPLETED THIS AM. PATIENT INITIALLY DID NOT WANT TO DO IMAGING, BUT EXPLAINED PROCEDURE AND WHY REPEAT IMAGING IS NEEDED TODAY. 2-VIEW X-RAY IS ORDERED TO COMPARE TO PRIOR STUDIES TO MONITOR ANY CHANGES AND FOR PLAN OF CARE. PATIENT AGREEABLE TO PLAN OF CARE. PATIENT CONTINUES TO STATE "I WILL NOT TAKE ANY SORT OF BLOOD THINNER, THEY ALL HAVE HARMFUL CHEMICALS AND MY BODY I NEVER KNOW HOW IM GOING TO RESPOND AND IT COULD KILL ME". PATIENT STATES "I DO WANT AN ASPRIN TODAY THOUGH".
--- NOTE | 2023-01-18 11:00 | NUR ---
MD GRAY IN TO SEE PATIENT AND REVIEW PLAN OF CARE. PER MD PATIENT X-RAY FINDINGS REMAIN THE SAME AND STABLE. NO FURTHER TREATMENT RECOMMENED D/T STABLE FINDINGS. PATIENT BECAME VERY UPSET WITH THIS. PATIENT WAS ABLE TO CALM DOWN AND STATED "I AM SORRY TO TAKE THIS ALL OUT ON YOU BOTH". MD STATED HE WOULD HAVE MD MONTANO FOLLOW-UP AGAIN WITH PATIENT.
--- NOTE | 2023-01-18 11:19 | NUR ---
Spoke with [place] [facility] services department to return call to [facility]. Informed patient is still in facility with likely DC to home today.
--- NOTE | 2023-01-18 12:08 | NUR ---
Spoke with patient regarding increasing weakness prior to admission and need for more assistance at home. Encouraged to work with PT, refuses PT or PT eval stating "they're the reason this started a year ago. There are 20 breathing exercises they could have given me to strengthen my diaphragm, but instead they had me doing other things and I've been in pain since." Informed patient this nurse will complete forms for [facility] and send so maybe she can get more help, verbalizes multiple times that sending the forms does not guarantee she will get more in home help.
--- NOTE | 2023-01-18 12:25 | NUR ---
PATIENTS DAUGHTER NANETTE CALLED. PER PATIENT "DO NOT GIVE THAT WOMAN ANY INFORMATION, SHE JUST WANTS MY INHERITANCE", "SHE HASNT BEEN A PART OF MY LIFE SINCE 2007". "SHE MADE MY LIFE HELL FOR THE LAST 40 YEAR". PATIENT TOLD STAFF WE COULD TO TELL HER ALL OF THESE QUOTES. NANETTE NOTIFIED THAT STAFF ARE UNABLE TO PROVIDE ANY INFORMATION AT THIS TIME PER PATIENTS REQUEST AND HIPPA LAWS. PATIENTS DAUGHTER STATED "SHE CAN BE SO DIFFICULT, BUT I RESPECT HER DECISION". PATIENT FRUSTRATED THAT SHE EVEN CALLED. UPDATED PATIENT SHE WILL NOT BE GIVEN ANY INFORMATION.
--- NOTE | 2023-01-18 12:56 | NUR ---
MD MONTANO IN TO DISCUSS TREATMENT OPTIONS AND PLAN OF CARE WITH PATIENT. THIS RN IN AT THE [facility]. NEW ORDERS PALCED FOR PATIENTS TENDER ABD.
--- NOTE | 2023-01-18 13:56 | NUR ---
[facility]EC completed with patient and faxed to [facility]
[2023-01-18 14:00] VITALS: BP 154/88
--- NOTE | 2023-01-18 14:18 | NUR ---
PT UP TO BEDSIDE COMMODE TO VOID. REQUESTED O2 BE TURNED UP TO 4L WHILE SHE MOVED. OXYGEN SATS DOWN TO 83% WHILE UP MOVING. RECOVERS ONCE BACK IN BED. PT REPORTS SPASMING PAIN TO ABD WHEN MOVING TO COMMODE.
--- NOTE | 2023-01-18 14:51 | NUR ---
PATIENTS BEDSIDE ULTRASOUND COMPETED. PATIENT NOW WITH IMAGING STAFF TO COMPLETE HIDA SCAN.
[2023-01-18 16:49] VITALS: BP 152/99
--- NOTE | 2023-01-18 16:50 | NUR ---
PATIENT ARRIVED BACK TO CCU ROOM 130 FORM HIDA SCAN PROCEDURE WITH STAFF. STAFF DID NOT NEED TO GO WITH PATIENT PER MD. PATIENT NOW RESTING IN BED. PATIENT TOLERATED SCAN WELL.
--- NOTE | 2023-01-18 18:08 | NUR ---
PATIENT SITTING IN BED VISTING WITH A FRIEND IN THE ROOM AND EATING DINNER. PATIENT ATE A CUPCAKE AND HOTCHOCOLATE WHEN SHE ARRIVED BACK FROM THE PROCEDURE WITH NO ISSUES.
--- NOTE | 2023-01-18 19:00 | NUR ---
SBAR HANDOFF RECEIVED FROM TOMASZ DEVI. ALL EVENT AND INTERVENTIONS OF THE DAY WERE DISCUSSED. ALL QUESTIONS AND CONCERNS WERE ADDRESSED AND ANSWERED. PATIENT MOON ENDORSES COMFORT AND DENIES ANY NEEDS AT THIS MOMENT. SHE IS FOUND TO BE LYING CONFORTABLY IN BED WITH NO SIGNS OF DISTRESS. CALLLIGHT AND VALUABLES AT WITHIN REACH. PATIENT MOON IS COMFORTABLE WITH THE LAYOUT OF THE ROOM AND KNOWS HOW TO CALL RN APPROPRIATELY FOR ANY NEEDS.
--- NOTE | 2023-01-18 21:25 | NUR ---
PATIENT MUSTAFA TRANSFERRED TO [facility]. INCREASED WALL O2 TO 4LNC FOR INTERMITTENT INCREASED NEED. THIS RN WILL ADMINISTER SCHEDULED ASPRIN 325.
--- NOTE | 2023-01-18 21:28 | NUR ---
patient up to the bsc. patient reports moderate to severe pain in her abd. patient voided and returned to bed with little assistance required; cord management. fresh ice water provided. patient sitting at edge of bed, call light in reach.
--- NOTE | 2023-01-19 02:00 | NUR ---
PATIENT MUSTAFA IS RESTING WITH EYES CLOSED, VSS AND WDL PER MONITOR.
[2023-01-19 02:01] VITALS: BP 119/81
--- NOTE | 2023-01-19 05:10 | NUR ---
PATIENT MOON HAD A RESTFUL NIGHT. SHE WAS ABLE TO REST WITH EYES CLOSED MOST OF THE NIGHT. PATIENT MOON ENDORSED COMFORT AND DENIED ANY NEEDS THROUGHOUT THE NIGHT. NEURO- ALERT AND ORIENTED, ABLE TO MOVE ALL EXTREMITIES, ENDORSED PAIN IN DIAPHRAGM, PERRLA, STANBY ASSIST CARDIAC- ST ELEVATION PERSISTS, BLOOD PRESSURE CHECKED PATIENT ALLOWED, VSS AND WDL PER MONITOR, NO EDEMA, A FEBRILE, ASPIRIN ADMINISTERED SCHEDULED RESP- BREATH SOUNDS CLEAR/ DIM. RECEIVING SALINE TREATMENTS, O2 SATS MAINTAINED ABOVE 88% PER ORDER, O2 NC REQUIRED 2L-4L, ABLE TO COUGH AND DEEP BREATH, ABLE TO CLEAR SECRETIONS GI/- LARGE BOWEL MOVEMENT, STOOL WELL FORMED, VOIDS IN COMMODE, REGULAR DIET, APPETITE INCREASED, BOWEL TONES APPRECIATED/ AUSCULTATED IN ALL 4 QUADRANTS INT- PATIENT DECLINES AN ASSESSMENT LDA- LAC, ABLE TO ASPIRATE AND FLUSH APPROPRIATELY.
[2023-01-19 05:30] VITALS: BP 140/87
[2023-01-19 08:01] VITALS: BP 147/92
--- NOTE | 2023-01-19 08:02 | NUR ---
REPORT RECIVED FROM DAY CARE ASSISTANT RN. PATIENT RESTING IN BED. PATIENT CALLS APPROPRIATELY. PER REPORT PATIENT HAD A GOOD NIGHT LAST NIGHT AND WAS ABLE TO SLEEP MOST OF THE NIGHT.
--- NOTE | 2023-01-19 09:45 | NUR ---
PATIENT WITH IMAGING DEPARTMENT STAFF FOR X-RAY.
--- NOTE | 2023-01-19 10:00 | NUR ---
PATIENT BACK IN BED. PATIENT DESATS WITH ACTIVITY TO 86%. PATIENT REQUESTS OXYGEN AT 4L WITH ACTIVITY PER PATIENTS NORMAL ROUTINE AT HOME. PATIENT PREFERS HER OXYGEN LEVELS TO BE 88-93% AT HOME AND TITRATES HER OXYGEN FROM 2.5L-4L NEEDED. PATIENT ASSESSMENT COMPELTED. PATIENT BREATH SOUNDS CLEAR AND DIMINISHED IN BASES. PATIENT ON 3L AT THIS TIME. PATIENT GETTING UP ON HER OWN AND MOVING BETTER TODAY. PATIENT REPORTS ASPRIN IS EVEN HELPING CURB THE PAIN WITH HER ABD. PATIENT STATES "IM OVERALL FEELING BETTER TODAY".
--- NOTE | 2023-01-19 12:30 | NUR ---
MD MONTANO IN TO DISCUSS PLAN OF CARE WITH PATIENT. PATIENT AGREEABLE TO PLAN. PATIENT WILL FOLLOW-UP WITH HER NEUROLOGIST AND SSDS MK 2 ADVANCED OPERATOR UPON DISCHARGE. PATIENT DENIES ANY OTHER NEEDS AT THIS TIME.
--- NOTE | 2023-01-19 13:18 | NUR ---
Received call from Lakeshia Alvarez RN. Planning to DC patient, but patient has been unable to reach her caregiver. This nurse called [facility] and spoke with TOMASZ Rebolledo States she will contact caregiver company to let them know patient may be DC'd home today. TOMASZ Rebolledo, also states she has attempted to contact patient today with no answer regarding a reassessment to try increasing caregiver hours when patient is DC'd to home. Ensured by nursing staff, patient has her cellphone at bedside.
--- NOTE | 2023-01-19 14:00 | NUR ---
PATIENT HAS A FRIEND IN AT HE BEDSIDE VISITING. PROVIDED PATIENT WITH [employer] PER PRIOR CONVERSATION. PATIENT HAS CALLED TO ARRANGE HER CAREGIVERS TIME AT HOME TO RESUME CARE TODAY OR TOMORROW. CASEMANAGEMENT WORKING WITH PATIENT AND [facility] TO EXTEND CAREGIVING HOURS.
--- NOTE | 2023-01-19 14:16 | NUR ---
Spoke with KANWAL Rebolledo RN, after speaking with DR. Leonard. Patient will be changed to inpatient for at least 1 more night to monitor as she is needing more oxygen. TOMASZ Rebolledo, states she will contact caregiver agency to ensure they know patient is staying at least one more night. [facility] would like a DC summary faxed to [phone] at time of DC so they know she has been discharged home. [place] continues to attempt to make contact with patient without success at this time. Lakeshia Alvarez RN, calls stating patient is requesting information regarding [employer]. Information provided for ADT bracelets for patient in home safety.
[2023-01-19 14:30] VITALS: BP 115/73
--- NOTE | 2023-01-19 15:00 | NUR ---
MD GRAY IN TO DISCUSS PLAN OF CARE WITH PATIENT. PATIENT AGREEABLE TO PLAN OF CARE. PATIENT WILL STAY OVERNIGHT AND MONITOR OXYGEN.
--- NOTE | 2023-01-19 15:45 | NUR ---
PATIENT PROVIDED WITH FRESH ICE WATER AND HOT CHOCOLATE PER REQUEST. NO OTHER NEEDS AT THIS TIME.
--- NOTE | 2023-01-19 19:21 | NUR ---
REPORT RECEIVED AND CARE ASSUMED FROM TOMASZ DEVI. ALL QUESTIONS ANSWERED. VSS PER CONTINUOUS MONITOR.
[2023-01-19 19:49] VITALS: BP 150/90
--- NOTE | 2023-01-19 19:53 | NUR ---
SHIFT ASSESSMENT COMPLETE. PT DENIES NEEDS AT THIS TIME. NC PATENT AND IN PLACE. PT VERBALIZES UNDERSTANDING TO USE CALL LIGHT WITH NEEDS. BED IN LOW, LOCKED POSITION. VSS AND NAD NOTED VIA DIRECT OBS, CONTINUOUS MONITOR AND PT STATEMENT.
--- NOTE | 2023-01-19 22:47 | NUR ---
PT WATCHING TELEVISION RESTING IN BED. PT STATES ROOM IS TOO HOT. THERMOSTAT SET AT 70, PT REQUEST AND RECEIVED THERMOSTAT DROP TO 67. PT ON 3L NC WITH O2 SAT 86-87. PT REFUSED TO ALLOW O2 INCREASE TO MORE THAN 3.5L. PT SAT 88-90 WITH 3.5L NC IN PLACE. PT REQUEST THAT WHEN O2 REACHES 91% WE DECREASE THE O2 TO 3L TO BE CONSISTENT TO WHAT SHE WEARS AT HOME.
--- NOTE | 2023-01-20 01:45 | NUR ---
PT RESTING IN BED WATCHING TELEVISION. PT DENIES NEEDS. 3L NC IN PLACE. PT REFUSES ATTEMPTS TO TITRATE. PT O2 SAT 86-94%. CALL LIGHT IN REACH, BED IN LOW, LOCKED POSITION. VSS AND NAD NOTED VIA CONTINUOUS MONITOR, DIRECT OBS AND PT STATEMENT.
--- NOTE | 2023-01-20 05:09 | NUR ---
PT RESTING IN BED. PT EASILY AWAKENED TO VOICE. PT DENIES NEEDS AT THIS TIME. PT VERBALIZES UNDERSTANDING TO USE CALL LIGHT WITH NEEDS. BED IN LOW, LOCKED POSITION. VSS AND NAD NOTED VIA CONTINUOUS MONITOR, DIRECT OBS AND PT STATEMENT. 3L NC IN PLACE.
--- NOTE | 2023-01-20 05:57 | NUR ---
PT RESTING IN BED, EYES CLOSED. VAA PER CONTINUOUS MONITOR AND DIRECT OBSERVATION.
--- NOTE | 2023-01-20 07:30 | NUR ---
REPORT RECEIVED, PATIENT IS RESTING IN BED.
[2023-01-20 08:00] VITALS: BP 133/89
--- NOTE | 2023-01-20 08:30 | NUR ---
ASSESSMENT COMPLETE. SITTING UP IN BED FOR BREAKFAST. TALKED WITH PATIENT ABOUT POC FOR THE DAY. INDICATES UNDERSTANDING. STATES SHE DIDN'T SLEEP WELL LAST NIGHT. DENIES NAUSEA.
--- NOTE | 2023-01-20 09:00 | NUR ---
DR. SWANN HERE TO SEE PATIENT. TAKING ABOUT DISCHARGE TODAY.
[2023-01-20] MEDS ORDERED: ASPIRIN81 MG PO (10:29)
[2023-01-20] MEDS ORDERED: CYCLOBENZAPRINE5 MG PO (10:30)
--- NOTE | 2023-01-20 10:30 | NUR ---
DISCHARGE ORDERS RECEIVED. PATIENT SAID HER RIDE WILL NOT BE HERE UNTIL AROUND 2-3 PM. PATIENT IS RESTING IN BED WITH TV ON. O2 ON AT 3 L NC.
--- NOTE | 2023-01-20 12:34 | NUR ---
SITTING UP IN BED TO TAKE LUNCH. NO CHANGES.
--- NOTE | 2023-01-20 13:00 | NUR ---
DISCHARGE INSTRUCTIONS GIVEN WITH PATIENT UNDERSTANDING. SL DC'D WITH CATH INTACT.
[2023-01-20 13:15] VITALS: BP 142/82
--- NOTE | 2023-01-20 13:15 | NUR ---
DISCHARGED TO HOME. FRIEND HERE TO TAKE PATIENT HOME VIA CAR.
== END 2023-01-20 13:15 | disposition home or self-care (01) | DRG 199 ==
LOC: ED 20:30 → CCU 20:32
PROVIDERS: Family Medicine; ADMIT Family Medicine; ATTEND Family Medicine
DX: J93.9 Pneumothorax, unspecified (principal); I21.4 Non-ST elevation (NSTEMI) myocardial infarction; J96.01 Acute respiratory failure with hypoxia; J84.9 Interstitial pulmonary disease, unspecified; R10.9 Unspecified abdominal pain; G89.29 Other chronic pain; Z66 Do not resuscitate; Z99.81 Dependence on supplemental oxygen; Z98.1 Arthrodesis status; Z90.710 Acquired absence of both cervix and uterus; Z90.49 Acquired absence of other specified parts of digestive tract; Z88.5 Allergy status to narcotic agent; Z88.1 Allergy status to other antibiotic agents; Z88.8 Allergy status to other drugs, medicaments and biological substances; Z79.899 Other long term (current) drug therapy
CPT/HCPCS: 36415; 71045; 71046; 74177; 76705; 78227; 80053; 81003; 83690; 84484; 85025; 93005; 93010; 94640; 94760; 94762; A9537; J2805